=== PATIENT | female | born 1955 | race Caucasian/White ===

== ENCOUNTER → 2016-05-28 | Outpatient (CLI) | payer OTHER ==
--- NOTE | 2016-05-29 08:52 | MM ---
Reason for exam: screening (asymptomatic). Last mammogram was performed 1 year and 1 month ago. History: Patient is postmenopausal. Family history of breast cancer in mother at age 50. Took hormonal contraceptives for 6 years. Physical Findings: A clinical breast exam by your physician is recommended on an annual basis and results should be correlated with mammographic findings. MG Screening Mammo w CAD Bilateral CC and MLO view(s) were taken. Prior study comparison: May 02, 2015, bilateral MG 3d screening mammo w/cad. April 22, 2014, bilateral MG screening mammo w CAD. April 17, 2012, bilateral digital screening mammo w/CAD. There are scattered fibroglandular densities. Finding: There are typically benign punctate, diffuse/scattered and grouped calcifications in both breasts. There is a chronic nodularity in the left axilla. There is no discrete abnormality. ASSESSMENT: Benign, BI-RAD 2 RECOMMENDATION: Routine screening mammogram of both breasts in 1 year.
== END | disposition home or self-care (01) ==
LOC: RADMAMWWP 15:27
PROVIDERS: ATTEND Family Medicine
DX: Z12.31 Encounter for screening mammogram for malignant neoplasm of breast (principal)

== ENCOUNTER → 2017-05-31 | Outpatient (CLI) | payer OTHER ==
--- NOTE | 2017-05-31 21:57 | MR ---
EXAMINATION TYPE: MR knee RT wo con DATE OF EXAM: 05/31/2017 COMPARISON: NONE HISTORY: Right knee pain TECHNIQUE: Multiplanar, multisequence imaging of the right knee is performed without IV contrast. FINDINGS: MEDIAL MENISCUS: There is a complex tear involving the posterior horn and body of the medial meniscus there is also a tear involving the anterior horn of the medial meniscus. A bucket-handle tear is not identified. LATERAL MENISCUS: Anterior and posterior horns are intact without tear. CRUCIATE LIGAMENTS: Posterior cruciate ligament is intact. Anterior cruciate ligament appears intact. COLLATERAL LIGAMENTS: Lateral collateral ligament is intact. Medial collateral ligament is intact wit h a small amount of increased fluid suggestive of grade 1 MCL strain. EXTENSOR MECHANISM: Patellar and quadriceps tendons are intact. A trace amount of fluid in the suprap atellar bursa. POPLITEAL CYST: There is a 1.2 x 1 cm x 3.0 cm popliteal fossa cyst TRICOMPARTMENT SPACES: Severe narrowing of the medial compartment knee joint and patellofemoral joint with hypertrophic spurring. No erosive changes. There is localized grade IV chondromalacia involving the articular medial femur and tibia. There is grade IV chondromalacia and marked thinning of the medial and lateral patellar facet compati ble with chondromalacia. BONE MARROW SIGNAL: Marrow edema involving the medial tibial plateau likely is reactive secondary to chondromalacia and severe degenerative changes. Additionally, marrow signal alteration within the pat quincy also likely reactive secondary to post arthritic changes. IMPRESSION: 1. Severe osteoarthritis with grade IV chondromalacia involving the patellofemoral joint and medial c ompartment knee joint. No free fragment. 2. Complex tear involving the posterior horn of the medial meniscus. There is a simple linear tear in volving the anterior horn of the medial meniscus. 3. Grade 1 MCL strain. 4. There is a 1.2 x 1 x 3 cm popliteal fossa cyst.
== END | disposition home or self-care (01) ==
LOC: RADMRIMAIN 13:43
PROVIDERS: ATTEND Orthopaedic Surgery
DX: S83.411A Sprain of medial collateral ligament of right knee, initial encounter (principal); M17.11 Unilateral primary osteoarthritis, right knee; M22.41 Chondromalacia patellae, right knee; S83.231A Complex tear of medial meniscus, current injury, right knee, initial encounter; S83.241A Other tear of medial meniscus, current injury, right knee, initial encounter; M71.21 Synovial cyst of popliteal space [Baker], right knee

== ENCOUNTER 2017-07-03 08:17 | Day surgery (SDC) | payer OTHER ==
[2017-06-28 11:27] VITALS: BMI 39.3
--- NOTE | 2017-07-02 13:35 | HP ---
HISTORY AND PHYSICAL Surgery is scheduled for 07/03/2017. Naty Cross is a 61-year-old patient seen with right knee pain. Progressive in nature. Treatment options were discussed. She elected to proceed with arthroscopy. Consent was obtained. PAST MEDICAL HISTORY: Hyperlipidemia, hypertension, [id number] diabetes, asthma. PAST SURGICAL HISTORY: Abdominoplasty, tubal ligation, tonsillectomy. DAILY MEDICATIONS: 1. Atorvastatin. 2. Janumet. 3. Lipitor. 4. Loratadine. 5. Sertraline. ALLERGIES: None known. SOCIAL HISTORY: Patient denies tobacco use. PHYSICAL EXAMINATION: Physical evaluation of the right knee range of motion is 0 to 125 degrees. Tenderness along the medial joint line. Positive medial Elvis's. Crepitus medial patellofemoral compartments with range of motion. Ligaments stable. Hip rotation without pain. Distal neurovascular exam intact. Radiographs which were obtained of the right knee revealed moderate to severe medial, moderate to severe patellofemoral compartment osteoarthritis. An MRI of right knee revealed medial meniscal tear and osteoarthritis. IMPRESSION: Internal derangement right knee with medial meniscal tear. PLAN: Right knee arthroscopy with partial meniscectomy and debridement. MMODL / IJN: [id number] /
[~2017-07-03 08:17] MED LIST: DEXAMETHASONE SOD PHOSPHATE 10 MG/ML 1 ML VIAL IV ONE; LACTATED RINGERS 1,000 ML IV SCH; LIDOCAINE 1% 20 ML VIAL (10MG/ML) FOR IV START INTRADERMA PRN; MORPHINE SULFATE 4MG/4ML SYRG IV PRN; ONDANSETRON 4 MG/2 ML VIAL IVP ONE; SCOPOLAMINE 1.5MG/72HR PATCH TRANSDERM ONE; ceFAZolin IN SWFI 2 GM/20 ML SYRINGE IVP ONE
[2017-07-03 10:44] LABS: Glucose,Whole Blood 105 mg/dL (75-99)
[2017-07-03] MEDS ORDERED: LIDOCAINE 1% INJ 10MG/ML (20 ML MDV) ONE (10:54)
[2017-07-03] MEDS ORDERED: fentaNYL (PF) 50 MCG/ML 2 ML AMP ONE (10:54)
[2017-07-03] MEDS ORDERED: MIDAZOLAM 2 MG/2 ML VIAL ONE (10:54)
[2017-07-03] MEDS ORDERED: SUCCINYLCHOLINE CHLORIDE 100 MG/5 ML SYR IV ONE (10:54)
[2017-07-03] MEDS ORDERED: PROPOFOL 10 MG/ML 20 ML VIAL IV ONE (10:54)
[2017-07-03] MEDS ORDERED: BUPIVACAINE (PF) 0.25% 30 ML VIAL INTRAARTIC ONE ×2 (11:13→11:28)
[2017-07-03 11:51] VITALS: TEMP 97.8
--- NOTE | 2017-07-03 11:57 | P.OP ---
Date of Procedure: 07/03/17 Preoperative Diagnosis: Internal derangement right knee Postoperative Diagnosis: 1. Tear medial and lateral meniscus right knee 2. Grade 3 chondromalacia medial femoral condyle right knee 3. Grade 2/3 chondromalacia patella right knee 4. Reactive synovitis medial and suprapatellar compartments right knee Procedure(s) Performed: 1. Arthroscopic partial medial and lateral meniscectomy right knee 2. Arthroscopic chondroplasty medial femoral condyle right knee 3. Arthroscopic chondroplasty patella right knee 4. Arthroscopic partial synovectomy medial and suprapatellar compartments right knee Anesthesia: CECILIAA, local Surgeon: Дмитрий Mckeon Estimated Blood Loss (ml): 8 Pathology: none sent Condition: stable Disposition: PACU Indications for Procedure: 61-year-old patient seen with progressive right knee pain. After treatment options were discussed, she elected to proceed with arthroscopy. Operative Findings: see description of procedure Description of Procedure: Patient was taken to the operative suite. Patient underwent a general anesthetic by the department of anesthesia. Patient was given preoperative antibiotics. The right lower extremity was placed in a well-padded arthroscopic leg chanel. The right leg was prepped and draped in the normal sterile orthopedic fashion. A lateral parapatellar and suprapatellar incision was made. Trochars were inserted. Arthroscopy was initiated. Suprapatellar pouch revealed diffuse thick reactive synovitis. The patellofemoral joint appeared articulate congruently. There was grade 2/3 chondromalacia of the patella with some osteochondral tears present. The scope was guided into the medial gutter. No loose bodies or plica were identified. The scope was then guided into the medial compartment. A medial parapatellar incision was made. Trocar inserted followed by probe. There was a complex tear posterior horn medial meniscus which extended into the midbody. There were grade 3 chondromalacia changes of the medial femoral condyle some osteochondral tears present. Was grade 3 chondromalacia of the tibial plateau There was reactive synovitis anteriorly. I performed a partial medial meniscectomy down to stable tissue. I performed a chondroplasty of the medial femoral condyle down to stable tissue. I performed a partial synovectomy. The residual meniscus and osteochondral surface were stable. Scope and probe were then guided into the intercondylar notch. Cruciates were identified, probed and found to be stable. The scope and probe were then guided into lateral compartment. There was a radial tear mid body lateral meniscus. There were grade 1 chondromalacia changes of the lateral compartment. There was no loose bodies or reactive synovitis. I performed a partial lateral meniscectomy down to stable tissue. The residual meniscus was stable. The scope was in guided back into the suprapatellar compartment. I introduced a motorized shaver into the super patellar compartment. I debrided some piecemeal fragments of meniscus I encountered. I performed a chondroplasty of the patella down to stable tissue. I performed a partial synovectomy. Shaver was now removed. I took one more look on the entire knee, no residual debris. Instruments were now removed from the joint. The joint was infiltrated with .25% Marcaine. Steri-Strips were applied to the portal sites. Sterile dressings were applied. The patient was placed into a DAMIAN hose. No tourniquet was utilized. The patient was awakened, transferred to a bed and taken to recovery stable satisfactory condition.
[2017-07-03 12:05] VITALS: RESP 18
[2017-07-03] MEDS ORDERED: HYDROcodone/APAP 5-325MG 1 EACH TAB PO ONE (13:06)
[2017-07-03 13:44] VITALS: BP 120/75
[2017-07-03 13:46] VITALS: PULSE 83
== END 2017-07-03 14:10 | disposition home or self-care (01) ==
LOC: OR 08:17
PROVIDERS: ATTEND Orthopaedic Surgery
DX: S83.241A Other tear of medial meniscus, current injury, right knee, initial encounter (principal); S83.281A Other tear of lateral meniscus, current injury, right knee, initial encounter; X58.XXXA Exposure to other specified factors, initial encounter; M22.41 Chondromalacia patellae, right knee; M65.861 Other synovitis and tenosynovitis, right lower leg; E78.5 Hyperlipidemia, unspecified; I10 Essential (primary) hypertension; E11.9 Type 2 diabetes mellitus without complications; Z79.84 Long term (current) use of oral hypoglycemic drugs; J45.909 Unspecified asthma, uncomplicated; Z79.899 Other long term (current) drug therapy; Z79.82 Long term (current) use of aspirin
CPT/HCPCS: 29880; J2250; J1100; J2405; J2001; J3010; J0330; J2704; J0690

== ENCOUNTER → 2017-07-16 | Outpatient (CLI) | payer OTHER ==
--- NOTE | 2017-07-17 10:28 | MM ---
Reason for exam: screening (asymptomatic). Last mammogram was performed 1 year and 2 months ago. History: Patient is postmenopausal. Family history of breast cancer in mother at age 50. Took hormonal contraceptives for 6 years. Physical Findings: A clinical breast exam by your physician is recommended on an annual basis and results should be correlated with mammographic findings. MG Screening Mammo w CAD Bilateral CC and MLO view(s) were taken. Prior study comparison: May 28, 2016, bilateral MG screening mammo w CAD. May 02, 2015, bilateral MG 3d screening mammo w/cad. There are scattered fibroglandular densities. There is no discrete abnormality. No significant changes when compared with prior studies. ASSESSMENT: Negative, BI-RAD 1 RECOMMENDATION: Routine screening mammogram of both breasts in 1 year.
== END | disposition home or self-care (01) ==
LOC: RADMAMWWP 13:54
PROVIDERS: ATTEND Family Medicine
DX: Z12.31 Encounter for screening mammogram for malignant neoplasm of breast (principal)
CPT/HCPCS: 77067

== ENCOUNTER → 2018-05-07 | Outpatient (CLI) | payer OTHER ==
--- NOTE | 2018-05-07 12:28 | CONS ---
CONSULTATION DATE OF SERVICE: 05/07/2018 This 62-year-old lady has been evaluated in sleep center for her sleep problems including difficulties to initiate sleep and awakenings from sleep. HISTORY OF PRESENT ILLNESS/SLEEP-WAKE EVALUATION: The patient usually goes to bed about 9:00 to 10:00 and falls asleep around midnight and she gets up in the morning around 8 or 9 a.m. She sleeps by herself with snoring and awakenings from sleep about 2 times. She has TV set in bedroom, usually sleeps on the side position. No history of hypnagogic hallucinations, sleep paralysis or cataplexy. She has symptoms of restless legs and knee pain. In the morning, patient wakes up tired and has difficulties to pay attention, falling asleep during the day, worries about her sleep, has problem with memory, concentration, irritability. [place] Sleepiness Scale significantly increased to 16. Sometimes she takes naps during the day about 2 p.m. PAST MEDICAL HISTORY: Positive for hypertension, hyperlipidemia, diabetes in the past, depression, knee problems, back problems. PAST SURGICAL HISTORY: Tonsillectomy, tubal ligation. MEDICATIONS: Aspirin, atorvastatin, benazepril, cetirizine, hydroxyzine, ibuprofen, sertraline, tramadol, vitamin D. SOCIAL HISTORY: Negative for smoking or using alcohol. FAMILY HISTORY: Hypertension, heart problems, hyperlipidemia, arthritis, sinus problems, weakness, bronchitis, sleep apnea, snoring, cancer, insomnia, diabetes, anemia, depression, restless legs. REVIEW OF SYSTEMS: Difficulties to initiate sleep, awakenings from sleep, snoring. PHYSICAL EXAMINATION: During physical exam, lady without distress. VITAL SIGNS: BP 140/78, HR 86, RR 16, height 5 feet 1 inch, weight 229 pounds, body mass index 43.2, temperature 98.0, oxygen saturation at room air 98%. HEENT: PERRLA, EOMI. Oropharynx extremely low position of soft palate. Mallampati 4. Restriction of nasal breathing. NECK: Neck 15-1/2 inches in circumference. LUNGS: Clear to percussion and to auscultation. Good air exchange. No wheezing or rhonchi. HEART: Slight systolic murmurs on aorta. ABDOMEN: Obese. EXTREMITIES: No clubbing or cyanosis. THERMOSTAT REPAIRER: Awake, alert, and oriented X3. Cranial nerves 2 to 7 intact. There is no fasciculation or atrophy. noted. No focal deficits observed. IMPRESSION: 1. Snoring, extremely low position of soft palate and awakenings from sleep, restriction of nasal breathing, obstructive sleep apnea-hypopnea syndrome. 2. Obesity, body mass index 43.2. 3. Symptoms of restless legs, possible restless legs syndrome, rule out periodic limb movements. 4. History of diabetes mellitus in the past. 5. Hypertension. 6. Hyperlipidemia. 7. History of depression. 8. Knee arthritis. 9. Back problems. 10.Status post tonsillectomy. 11.Status post tubal ligation. PLAN: 1. Polysomnography for evaluation of patient's breathing during sleep. 2. CPAP/BiPAP titration if sleep study confirms obstructive sleep apnea-hypopnea syndrome. 3. Preferable position during sleep on the side. 4. No driving if patient feels any sleepiness. 5. I will see patient for follow up visit to explain results of testing and following plan. Thank you very much for referring this patient for consultation. Sincerely, Vince Gonzales MD, PhD, FAASM Diplomat of [employer] Dry Cleaner Presser of [facility] [place] MMODL / IJN: [id number] /
== END ==
LOC: SLEEP 11:13
PROVIDERS: ATTEND Internal Medicine
DX: G47.33 Obstructive sleep apnea (adult) (pediatric) (principal); E66.9 Obesity, unspecified; G25.81 Restless legs syndrome; E11.9 Type 2 diabetes mellitus without complications; I10 Essential (primary) hypertension; E78.5 Hyperlipidemia, unspecified; F32.9 Major depressive disorder, single episode, unspecified; M17.9 Osteoarthritis of knee, unspecified; M54.89 Other dorsalgia; Z90.89 Acquired absence of other organs; Z98.51 Tubal ligation status; Z99.89 Dependence on other enabling machines and devices; Z68.41 Body mass index [BMI] 40.0-44.9, adult; Z79.899 Other long term (current) drug therapy; Z79.82 Long term (current) use of aspirin
CPT/HCPCS: 99211

== ENCOUNTER → 2018-06-19 | Outpatient (CLI) | payer OTHER ==
--- NOTE | 2018-06-19 13:11 | SFUN ---
SLEEP CENTER FOLLOW UP NOTE DATE OF SERVICE: 06/19/2018 A 62-year-old lady who has been followed in sleep center to discuss results of sleep study and following plan. I discussed results of sleep study with patient in details. No significant respiratory abnormalities have been documented during the sleep test. Total apnea-hypopnea index only 0.5 with the lowest oxygen level 91.6%, which is absolutely normal. Sleep efficiency was 81.7%, which is slightly below border. Latency sleep onset was normal 19.3 minutes. The patient had 2 amount of delta sleep 23.3%, amount of REM sleep slightly decreased to 14.5%. Significant amount of periodic limb movements have been documented 86.7 times per hour with 6.2 microarousals per hour. Sometimes patient feels sleepy during the day. May take naps usually this short cat naps. She is not sure if she is feeling better after the naps. [place] Sleepiness Scale increased to 15. MEDICATIONS: Atorvastatin, benazepril, cetirizine, hydroxyzine, ibuprofen, sertraline, tramadol, vitamin D, ropinirole. PHYSICAL EXAMINATION: During physical exam, patient in no distress. VITAL SIGNS: BP 144/67, HR 82, RR 16, height 5 feet 1 inch, weight 229, body mass index 43.2, oxygen saturation at room air 97%, temperature 97.9. HEENT: PERRLA, EOMI. Moderately low position of soft palate. Mallampati 3. NECK: Supple, no JVD. Thyroid is not palpable. LUNGS: Clear to percussion and to auscultation. Good air exchange. No wheezing or rhonchi. HEART: S1, S2 regular. No murmurs, gallops, or rubs. ABDOMEN: Obese. EXTREMITIES: No clubbing or cyanosis. SHELL CORE AND MOLDING SUPERVISOR: Awake, alert, and oriented X3. Cranial nerves 2 to 7 intact. There is no fasciculation or atrophy. noted. No focal deficits observed. IMPRESSION: 1. No significant respiratory abnormalities have been documented during the sleep study. Normal oxygenation during the sleep. 2. Severe periodic limb movements, 86.7 per hour with 6.2 microarousals per hour have been documented. 3. Patient occasionally takes naps and feels sleepy. [place] Sleepiness Scale increased to 15. 4. Obesity. 5. History of diabetes mellitus. 6. Hypertension. 7. Hyperlipidemia. 8. History of depression. 9. Knee arthritis. 10.Back problems. 11.Status post tonsillectomy. 12.Status post tubal ligation. PLAN: 1. The patient will continue treatment with dopamine agonist. She did not take medication at the day of the test. 2. Sleep hygiene with regular time in bed for 8 hours. 3. Preferable position during the sleep on the side. 4. Losing weight. 5. No driving if feeling any sleepiness. 6. Please check iron profile including ferritin level. Low level of iron may increase risks for restless legs syndrome and periodic limb movements. 7. If patient will continue to have symptoms of significant excessive daytime sleepiness we may proceed with polysomnogram following with multiple sleep latency test for objective evaluation of symptoms of sleepiness. Thank you very much for allowing me to participate in management of your patient. Sincerely, Vince Gonzales MD, PhD, FAASM Diplomat of [employer] Advertising Production Manager of [facility] [place] MMODL / LEONIDN: [id number] /
== END | disposition home or self-care (01) ==
LOC: SLEEP 11:13
PROVIDERS: ATTEND Internal Medicine
DX: G47.61 Periodic limb movement disorder (principal); E66.9 Obesity, unspecified; E11.9 Type 2 diabetes mellitus without complications; I10 Essential (primary) hypertension; E78.5 Hyperlipidemia, unspecified; M17.10 Unilateral primary osteoarthritis, unspecified knee; M53.9 Dorsopathy, unspecified; Z68.41 Body mass index [BMI] 40.0-44.9, adult; Z90.09 Acquired absence of other part of head and neck; Z98.51 Tubal ligation status; Z79.899 Other long term (current) drug therapy

== ENCOUNTER 2018-07-11 20:58 | Observation (INO) | payer OTHER ==
[2018-07-11] MEDS ORDERED: IBUPROFEN 800 MG TAB PO STA (21:10)
--- NOTE | 2018-07-11 22:04 | XR ---
EXAMINATION TYPE: XR chest 2V DATE OF EXAM: 07/11/2018 COMPARISON: NONE HISTORY: Sore throat TECHNIQUE: Frontal and lateral views of the chest are obtained. FINDINGS: Heart and mediastinum are normal. Lungs are clear. Diaphragm is normal. Bony thorax appear s normal. IMPRESSION: Normal chest.
[2018-07-11] MEDS ORDERED: SODIUM CHLORIDE 0.9% 500 ML 500 ML IV ONE ×2 (22:06→23:46)
[2018-07-11] MEDS ORDERED: ACETAMINOPHEN TAB 325 MG TAB PO STA (22:08)
[2018-07-11 22:42] LABS: HCT 20.9 % (34.0-46.0); Hypochromasia Slight; MCH 28.4 pg (25.0-35.0); MCHC 31.8 g/dL (31.0-37.0); MCV 89.5 fL (80.0-100.0); Mean Platelet Volume 7.4; Platelet Count 439 k/uL (150-450); RBC 2.34 m/uL (3.80-5.40); RDW 13.8 % (11.5-15.5); WBC 16.3 k/uL (3.8-10.6)
[2018-07-11 22:52] LABS: Albumin 3.7 g/dL (3.5-5.0); Calcium 8.6 mg/dL (8.4-10.2); Potassium 4.1 mmol/L (3.5-5.1); Total Bilirubin 0.4 mg/dL (0.2-1.3); Total Protein 6.9 g/dL (6.3-8.2)
[2018-07-11 22:56] LABS: HGB 6.7 gm/dL (11.4-16.0)
[2018-07-11 23:30] LABS: Lymphocytes # (M) 2.93 k/uL (1.0-4.8); Monocytes # (M) 1.79 k/uL (0-1.0); Myelocytes # (M) 0.33 k/uL (0); Myelocytes % 2 %; Neutrophils # (M) 11.41 k/uL (1.3-7.7); Neutrophils % (M) 70 %; Nucleated Red Blood Cells 0 /100 WBC (0-0); Total Cells Counted 200
[2018-07-11 23:46] LABS: Appearance,Urine Cloudy (Clear); Bacteria,Urine Many /hpf; Bilirubin,Urine Negative (Negative); Blood,Urine Moderate (Negative); Color,Urine Yellow; Glucose,Urine (UA) Negative (Negative); Hyaline Casts,Urine 1 /lpf (0-2); Ketones,Urine Negative (Negative); Leukocyte Esterase,Urine Moderate (Negative); Mucus,Urine Occasional /hpf; Nitrite,Urine Positive (Negative); PH, Urine 5.5 (5.0-8.0); Protein,Urine 1+ (Negative); RBC,Urine 7 /hpf (0-5); Specific Gravity,Urine 1.017 (1.001-1.035); Squamous Epithelial Cell,Urine 1 /hpf (0-4); Urobilinogen,Urine <2.0 mg/dL (<2.0); WBC,Urine 38 /hpf (0-5)
--- NOTE | 2018-07-12 00:23 | ED ---
General Adult HPI - General Chief complaint: Upper Respiratory Infection Stated complaint: Fever/Sore Throat Time Seen by Provider: 07/11/18 21:10 Source: patient Mode of arrival: ambulatory Limitations: no limitations - History of Present Illness Initial comments: 62-year-old femaleWith past medical history of diabetes hypertension and hyperlipidemia presenting today for chief complaint of cough and sore throat. Patient states the past 2-3 days she has had cough and sore throat, she states she has also had a fever. She states she has been taking Tylenol for the fever. Patient states his symptoms persisted today she presented for evaluation. David hurst also admitted to body aches. Patient denies diarrhea, constipation, abdominal pain, melena, hematochezia, shortness of breath, chest pain, nausea. Patient was concerned that she had contracted influenza although she states she did receive her vaccinations. Patient denies any significant sputum production. Upon arrival patient's heart rate elevated, patient is febrile. Patient does not appear toxic. Many review of systems negative. - Related Data Home Medications Medication Instructions Recorded Confirmed Aspirin EC [Ecotrin] 81 mg PO DAILY 06/04/15 07/11/18 Atorvastatin [Lipitor] 80 mg PO HS 06/04/15 07/11/18 Benazepril HCl [Lotensin] 20 mg PO HS 06/04/15 07/11/18 Sertraline [Zoloft] 100 mg PO DAILY 06/04/15 07/11/18 traMADol HCl [Ultram] 50 mg PO HS PRN 06/04/15 07/11/18 Cetirizine HCl [Zyrtec] 10 mg PO DAILY 06/28/17 07/11/18 hydrOXYzine HCL [Atarax] 10 mg PO HS PRN 06/28/17 07/11/18 Artificial Tears-Hypromellose 1 drops BOTH EYES DAILY PRN 07/11/18 07/11/18 [Artificial Tear Drops] Ergocalciferol [Vitamin D2] 50,000 unit PO Q7D 07/11/18 07/11/18 Hydrocortisone Cream 1 applic TOPICAL QID 07/11/18 07/11/18 [Hydrocortisone 2.5% Cream] Ibuprofen [Motrin] 800 mg PO TID PRN 07/11/18 07/11/18 Nystatin 100,000Unit/gm Cream 1 applic TOPICAL BID 07/11/18 07/11/18 [Mycostatin Cream] rOPINIRole HCL 0.5 mg PO HS 07/11/18 07/11/18 Allergies Allergy/AdvReac Type Severity Reaction Status Date / Time No Known Allergies Allergy Verified 07/11/18 21:22 Review of Systems ROS Statement: Those systems with pertinent positive or pertinent negative responses have been documented in the HPI. ROS Other: All systems not noted in ROS Statement are negative. Past Medical History Past Medical History: Diabetes Mellitus, Hyperlipidemia, Hypertension, Osteoarthritis (OA), Renal Disease Additional Past Medical History / Comment(s): TYPE 2 DIABETES CONTROLLED WITH DIET & EXERCISE., BACK PAIN - SEES CHIROPRACTER., STATES "SLIGHT KIDNEY DISEAS E"., PAIN RIGHT KNEE WITH ACTIVITY. History of Any Multi-Drug Resistant Organisms: None Reported Past Surgical History: Orthopedic Surgery, Tonsillectomy, Tubal Ligation Additional Past Surgical History / Comment(s): bunionectomy left foot and a plate Past Anesthesia/Blood Transfusion Reactions: No Reported Reaction Past Psychological History: Anxiety, Depression Smoking Status: Never smoker Past Alcohol Use History: None Reported Past Drug Use History: None Reported - Past Family History Mother Family Medical History: Cancer Brother(s) Family Medical History: Cancer Son(s) Family Medical History: Cancer General Exam - General Exam Comments Initial Comments: General: The patient is awake and alert, in no distress, and does not appear acutely ill. Eye: +3 mm pupils are equal, round and reactive to light, extra-ocular movements are intact. No nystagmus. There is normal conjunctiva bilaterally. No signs of icterus. No photophobia Ears, nose, mouth and throat: There are moist mucous membranes and no oral lesions. Oropharynx was not erythematous there is no tonsillar enlargement exudates or lesions. Uvula midline. Tympanic membranes are not erythematous or is no effusions bulging or retraction. No tenderness to palpation of the mastoid. No anterior cervical lymphadenopathy. Rhinorrhea, clear and bilateral nares. No tripoding, no drooling. Neck: The neck is supple, there is no tenderness or JVD. No nuchal rigidity negative Brudzinski and Kernig Cardiovascular: There is a regular rate and rhythm. No murmur, rub or gallop is appreciated. Respiratory: Lungs are clear to auscultation, respirations are non-labored, breath sounds are equal. No wheezes, stridor, rales, or rhonchi. No retractions or abdominal breathing. Gastrointestinal: Soft, non-distended, non-tender abdomen without masses or organomegaly noted. There is no rebound or guarding present. Bowel sounds are unremarkable. Musculoskeletal: Normal ROM, no tenderness. Strength 5/5. Sensation intact. Radial pulses equal bilaterally 2+. Neurological: A&O x 3. CN II-XII intact, There are no obvious motor or sensory deficits. Coordination appears grossly intact. Speech appears normal, no muffling. Skin: Skin is warm and dry and no rashes or lesions are noted. No extremity edema Psychiatric: Cooperative Limitations: no limitations Course Vital Signs 07/11/18 07/11/18 07/12/18 20:59 22:39 00:15 Temperature 102.4 F H 100.1 F H 98.3 F Pulse Rate 120 H 106 H 93 Respiratory 24 20 16 Rate Blood Pressure 147/70 126/82 128/74 O2 Sat by Pulse 96 96 96 Oximetry Medical Decision Making - Medical Decision Making Well-appearing 62-year-old female presenting for upper respiratory symptoms including cough and sore throat. Exam unremarkable. Patient is febrile with elevated heart rate. Upon arrival patient was given ibuprofen and Tylenol, decrease in fever with decrease in heart rate noted. Laboratory studies revealed a low hemoglobin, leukocytosis. Cr elevated, pt states she has known Stage 2 kidney disease. Chest X-Ray Revealed No acute cardiopulmonary process. No Infiltrates concerning for Pneumonia. Lungs Are Clear to Auscultation. Patient states she does have a distant history of anemia of a few years prior denies any iron supplements. She denies a previous transfusions. At this time patient will receive contusion as hemoglobin less than 7. Patient is agreeable transfusion at this time. Patient has urinary tract infection, treated with ceftriaxone. At this time I feel patient's fever is most likely due to upper respiratory symptoms such as a viral illness a posterior urinary tract infection. Patient does not appear toxic or septic at this time. Remains hemodynamically stable within the emergency department. However given HgB with need for transfusion pt will be admitted with hematology consultation, IV antibiotics for UTI, r/o sepsis. Patient is agreeable to admission. After discussing case with attending provider Dr. Morfin he is agreeable with admission. He spoke with admitting provider Dr. Dumont. - Lab Data Result diagrams: 07/11/18 21:24 07/11/18 21:24 Lab Results 07/11/18 07/11/18 07/11/18 Range/Units 21:23 21:24 21:24 WBC 16.3 H (3.8-10.6) k/uL RBC 2.34 L (3.80-5.40) m/uL Hgb 6.7 L* (11.4-16.0) gm/dL Hct 20.9 L (34.0-46.0) % MCV 89.5 (80.0-100.0) fL MCH 28.4 (25.0-35.0) pg MCHC 31.8 (31.0-37.0) g/dL RDW 13.8 (11.5-15.5) % Plt Count 439 (150-450) k/uL Neutrophils % (Manual) 70 % Lymphocytes % (Manual) 18 % Monocytes % (Manual) 11 % Myelocytes % 2 % Neutrophils # (Manual) 11.41 H (1.3-7.7) k/uL Lymphocytes # (Manual) 2.93 (1.0-4.8) k/uL Monocytes # (Manual) 1.79 H (0-1.0) k/uL Myelocytes # (Manual) 0.33 H (0) k/uL Nucleated RBCs 0 (0-0) /100 WBC Manual Slide Review Performed Hypochromasia Slight Sodium 141 (137-145) mmol/L Potassium 4.1 (3.5-5.1) mmol/L Chloride 111 H (98-107) mmol/L Carbon Dioxide 20 L (22-30) mmol/L Anion Gap 10 mmol/L BUN 29 H (7-17) mg/dL Creatinine 1.39 H (0.52-1.04) mg/dL Est GFR (CKD-EPI)AfAm 48 (>60 ml/min/1.73 sqM) Est GFR (CKD-EPI)NonAf 41 (>60 ml/min/1.73 sqM) Glucose 186 H (74-99) mg/dL Plasma Lactic Acid Oziel (0.7-2.0) mmol/L Calcium 8.6 (8.4-10.2) mg/dL Total Bilirubin 0.4 (0.2-1.3) mg/dL AST 27 (14-36) U/L ALT 34 (9-52) U/L Alkaline Phosphatase 119 (38-126) U/L Total Protein 6.9 (6.3-8.2) g/dL Albumin 3.7 (3.5-5.0) g/dL Urine Color Urine Appearance (Clear) Urine pH (5.0-8.0) Ur Specific [place] (1.001-1.035) Urine Protein (Negative) Urine Glucose (UA) (Negative) Urine Ketones (Negative) Urine Blood (Negative) Urine Nitrite (Negative) Urine Bilirubin (Negative) Urine Urobilinogen (<2.0) mg/dL Ur Leukocyte Esterase (Negative) Urine RBC (0-5) /hpf Urine WBC (0-5) /hpf Ur Squamous Epith Cells (0-4) /hpf Urine Bacteria (None) /hpf Hyaline Casts (0-2) /lpf Urine Mucus (None) /hpf Stool Occult Blood (Negative) Influenza Type A RNA Not Detected (Not Detectd) Influenza Type B (PCR) Not Detected (Not Detectd) 07/11/18 07/11/18 07/12/18 Range/Units 21:24 23:00 01:06 WBC (3.8-10.6) k/uL RBC (3.80-5.40) m/uL Hgb (11.4-16.0) gm/dL Hct (34.0-46.0) % MCV (80.0-100.0) fL MCH (25.0-35.0) pg MCHC (31.0-37.0) g/dL RDW (11.5-15.5) % Plt Count (150-450) k/uL Neutrophils % (Manual) % Lymphocytes % (Manual) % Monocytes % (Manual) % Myelocytes % % Neutrophils # (Manual) (1.3-7.7) k/uL Lymphocytes # (Manual) (1.0-4.8) k/uL Monocytes # (Manual) (0-1.0) k/uL Myelocytes # (Manual) (0) k/uL Nucleated RBCs (0-0) /100 WBC Manual Slide Review Hypochromasia Sodium (137-145) mmol/L Potassium (3.5-5.1) mmol/L Chloride (98-107) mmol/L Carbon Dioxide (22-30) mmol/L Anion Gap mmol/L BUN (7-17) mg/dL Creatinine (0.52-1.04) mg/dL Est GFR (CKD-EPI)AfAm (>60 ml/min/1.73 sqM) Est GFR (CKD-EPI)NonAf (>60 ml/min/1.73 sqM) Glucose (74-99) mg/dL Plasma Lactic Acid Oziel 1.4 (0.7-2.0) mmol/L Calcium (8.4-10.2) mg/dL Total Bilirubin (0.2-1.3) mg/dL AST (14-36) U/L ALT (9-52) U/L Alkaline Phosphatase (38-126) U/L Total Protein (6.3-8.2) g/dL Albumin (3.5-5.0) g/dL Urine Color Yellow Urine Appearance Cloudy H (Clear) Urine pH 5.5 (5.0-8.0) Ur Specific [place] 1.017 (1.001-1.035) Urine Protein 1+ H (Negative) Urine Glucose (UA) Negative (Negative) Urine Ketones Negative (Negative) Urine Blood Moderate H (Negative) Urine Nitrite Positive H (Negative) Urine Bilirubin Negative (Negative) Urine Urobilinogen <2.0 (<2.0) mg/dL Ur Leukocyte Esterase Moderate H (Negative) Urine RBC 7 H (0-5) /hpf Urine WBC 38 H (0-5) /hpf Ur Squamous Epith Cells 1 (0-4) /hpf Urine Bacteria Many H (None) /hpf Hyaline Casts 1 (0-2) /lpf Urine Mucus Occasional H (None) /hpf Stool Occult Blood Negative (Negative) Influenza Type A RNA (Not Detectd) Influenza Type B (PCR) (Not Detectd) Disposition Clinical Impression: UTI (urinary tract infection), Fever, Anemia, Leukocytosis Disposition: ADMITTED IP TO THIS HOSP Condition: Stable Is patient prescribed a controlled substance at d/c from ED?: No Referrals: Norberto Dumont MD [Primary Care Provider] - 1-2 days Time of Disposition: 00:47 Decision to Admit Reason: Admit from EC Decision Date: 07/12/18 Decision Time: 00:47
[2018-07-12] MEDS ORDERED: NALOXONE 0.4 MG/ML 1 ML VIAL IV PRN (00:43)
[2018-07-12] MEDS: SODIUM CHLORIDE 0.9% 1,000 ML IV SCH ×2 (04:11→17:05)
[2018-07-12 04:43] VITALS: BMI 41.1
[2018-07-12 07:18] LABS: Glucose,Whole Blood 134 mg/dL (75-99)
[2018-07-12] MEDS ORDERED: hydrOXYzine HCL 10 MG TAB PO PRN (09:19)
[2018-07-12 10:28] LABS: Albumin 3.2 g/dL (3.5-5.0); Calcium 8.1 mg/dL (8.4-10.2); Total Bilirubin 0.5 mg/dL (0.2-1.3); Total Protein 6.2 g/dL (6.3-8.2)
[2018-07-12 10:29] LABS: Basophils # (A) 0.1 k/uL (0-0.2); Basophils % (A) 0 %; Eosinophils # (A) 0.1 k/uL (0-0.7); Eosinophils % (A) 1 %; HCT 30.4 % (34.0-46.0); Hypochromasia Slight; Lymphocytes # (A) 1.2 k/uL (1.0-4.8); Lymphocytes % (A) 10 %; MCH 29.5 pg (25.0-35.0); MCHC 31.8 g/dL (31.0-37.0); MCV 92.5 fL (80.0-100.0); Mean Platelet Volume 7.3; Monocytes % (A) 9 %; Neutrophils # (A) 8.9 k/uL (1.3-7.7); Neutrophils % (A) 76 %; Platelet Count 309 k/uL (150-450); RBC 3.28 m/uL (3.80-5.40); RDW 13.9 % (11.5-15.5); WBC 11.6 k/uL (3.8-10.6)
[2018-07-12 10:33] LABS: HGB 9.7 gm/dL (11.4-16.0)
[2018-07-12 12:41] LABS: Glucose,Whole Blood 154 mg/dL (75-99)
[2018-07-12] MEDS: INSULIN ASPART (NovoLOG) 100 UNIT/ML VIAL SQ SCH ×3 (12:47→21:03)
[2018-07-12] MEDS: TRIAMCINOLONE 0.1% CREAM 80 GM TUBE TOPICAL SCH ×3 (12:48→21:03)
[2018-07-12] MEDS: SERTRALINE 100 MG TAB PO SCH (12:48)
--- NOTE | 2018-07-12 13:52 | HP ---
HISTORY AND PHYSICAL CHIEF COMPLAINT: Shortness of breath and anemia. HISTORY OF PRESENT ILLNESS: This is another [facility] admission for this 62-year-old female with insulin- dependent diabetes mellitus. She came to emergency room with shortness of breath and was found to have a hemoglobin of around 6. She has no history of bleeding. She has had no abdominal pain, nausea, vomiting, hematemesis, hematuria, melena, hematochezia, etc. At her annual physical assessment last fall in September, her hemoglobin was 11.9. REVIEW OF SYSTEMS: She has had no syncope, headaches, neurologic problems, cough, hemoptysis, chest pain, shortness of breath, heart disease, abdominal pain, indigestion, melena, hematochezia, etc. She has had no hematuria, renal disease, renal failure, etc. She is diabetic. The past medical history, family history and personal and social histories are all otherwise unremarkable and noncontributory. She is not allergic to any medication. She is on vitamin D3, benazepril 20, atorvastatin 80, sertraline 100 mg, Ropinirole 0.25, tramadol 50 mg and acetamide 10 mg, aspirin. The remainder of her history is unremarkable or noncontributory. She does not smoke or drink. PHYSICAL EXAMINATION: Blood pressure 130/70 with a pulse of 100, respirations of 16 and she is afebrile. In general, she appeared to be overweight and slightly pale. Skin color is normal, skin was warm, dry. She had numerous neurotic excoriations on her arms, which she has had for years. Head, ears, eyes, nose, mouth, and throat are normal. There are no neck masses and there is no thyromegaly. The chest is clear to auscultation and percussion. Cardiac exam demonstrates normal sinus rhythm and no murmurs or extra sounds. The abdomen is soft and nontender without any visceromegaly or masses. Bowel sounds are present. Extremities are normal. Neurologically, she is intact. She is admitted to the hospital with diagnoses of: 1. Unexplained anemia. 2. Type 2 NIDDM. 3. Urinary tract infection. 4. Neurotic excoriations. PLAN: 1. Bed rest. 2. IV fluids. 3. Transfuse 1 unit of packed cells. 4. Investigate source of anemia with Hematology consult. MMODL / IJN: [id number] /
[2018-07-12 17:39] LABS: Glucose,Whole Blood 153 mg/dL (75-99)
[2018-07-12 19:28] LABS: Hemoglobin A1C 6.7 % (4.0-6.0)
[2018-07-12 20:38] LABS: Glucose,Whole Blood 140 mg/dL (75-99)
[2018-07-12] MEDS: ATORVASTATIN 80 MG TAB PO SCH (21:02)
[2018-07-12] MEDS: LISINOPRIL 20 MG TAB PO SCH (21:02)
--- NOTE | 2018-07-12 22:40 | P.CONS ---
History of Present Illness - Reason for Consult Consult date: 07/12/18 Anemia Requesting physician: Norberto Dumont - Chief Complaint Sore throat, fever - History of Present Illness Ms. Arriola is a very pleasant 62 yo female with multiple comorbidities as listed in PMH who is here for cough, sore throat, and fever, found to have anem ia with Hgb 6.7, negative FOBT and flu. No recent antibiotics or new medications. No known history of anemia per pt. No prior CBC in her chart however. CBC upon presentation with WBC 16.7, Hgb 6.7, plt 439, MCV 89.5 She did receive 1 unit pRBC with improvement of Hgb. WBC and plt also improved upon repeat CBC. Cr upon presentation 1.3. FOBT negative and no obvious source of blood loss. No smoking, alcohol, or drug use. No known family history of blood disorders. Review of Systems All systems: negative Constitutional: Reports as per HPI Past Medical History Past Medical History: Diabetes Mellitus, Hyperlipidemia, Hypertension, Osteoarthritis (OA), Renal Disease Additional Past Medical History / Comment(s): TYPE 2 DIABETES CONTROLLED WITH DIET & EXERCISE., BACK PAIN - SEES CHIROPRACTER., STATES "SLIGHT KIDNEY DISEASE"., PAIN RIGHT KNEE WITH ACTIVITY. History of Any Multi-Drug Resistant Organisms: None Reported Past Surgical History: Orthopedic Surgery, Tonsillectomy, Tubal Ligation Additional Past Surgical History / Comment(s): bunionectomy left foot and a plate Past Anesthesia/Blood Transfusion Reactions: No Reported Reaction Past Psychological History: Anxiety, Depression Smoking Status: Never smoker Past Alcohol Use History: None Reported Past Drug Use History: None Reported - Past Family History Mother Family Medical History: Cancer Brother(s) Family Medical History: Cancer Son(s) Family Medical History: Cancer Medications and Allergies Home Medications Medication Instructions Recorded Confirmed Type Aspirin EC [Ecotrin] 81 mg PO DAILY 06/04/15 07/11/18 History Atorvastatin [Lipitor] 80 mg PO HS 06/04/15 07/11/18 History Benazepril HCl [Lotensin] 20 mg PO HS 06/04/15 07/11/18 History Sertraline [Zoloft] 100 mg PO DAILY 06/04/15 07/11/18 History traMADol HCl [Ultram] 50 mg PO HS PRN 06/04/15 07/11/18 History Cetirizine HCl [Zyrtec] 10 mg PO DAILY 06/28/17 07/11/18 History hydrOXYzine HCL [Atarax] 10 mg PO HS PRN 06/28/17 07/11/18 History Artificial Tears-Hypromellose 1 drops BOTH EYES DAILY PRN 07/11/18 07/11/18 History [Artificial Tear Drops] Ergocalciferol [Vitamin D2] 50,000 unit PO Q7D 07/11/18 07/11/18 History Hydrocortisone Cream 1 applic TOPICAL QID 07/11/18 07/11/18 History [Hydrocortisone 2.5% Cream] Ibuprofen [Motrin] 800 mg PO TID PRN 07/11/18 07/11/18 History Nystatin 100,000Unit/gm Cream 1 applic TOPICAL BID 07/11/18 07/11/18 History [Mycostatin Cream] rOPINIRole HCL 0.5 mg PO HS 07/11/18 07/11/18 History Allergies Allergy/AdvReac Type Severity Reaction Status Date / Time No Known Allergies Allergy Verified 07/11/18 21:22 Physical Exam Vitals: Vital Signs Temp Pulse Pulse Resp BP BP Pulse Ox 07/12/18 11:24 109/54 07/12/18 08:50 84 16 07/12/18 05:34 98.1 F 84 16 87/58 97 07/12/18 05:32 98.9 F 77 20 116/69 07/12/18 03:47 98.2 F 76 18 119/59 07/12/18 03:17 98.4 F 81 20 124/58 07/12/18 03:07 98.3 F 79 20 111/56 96 07/12/18 01:30 96 18 123/60 95 07/12/18 00:15 98.3 F 93 16 128/74 96 07/11/18 22:39 100.1 F H 106 H 20 126/82 96 07/11/18 20:59 102.4 F H 120 H 24 147/70 96 Intake and Output 07/11/18 07/12/18 07/12/18 22:59 06:59 14:59 Intake Total 1600 Balance 1600 Intake: Intake, IV Titration 150 Amount Sodium Chloride 0.9% 1, 150 000 ml @ 75 mls/hr IV . [id number] TAMIR Rx#:[id number] Oral 830 Blood Product 620 Rc As-1 Unit 310 [id number] Other: # Voids 1 Weight 102 kg General: In no acute distress. HEENT: Conjunctival pallor. No scleral icterus. Mucosa moist. Neck: Neck supple. Lymph: No cervical/supraclavicular LAD. Lungs: Normal respirations. Heart: Regular rate. No LE edema. Abdomen: Soft, nontender, nondistended. MSK: 4/4 strength in all 4 extremities. Neuro: Alert and oriented 3. No obvious gross neurologic deficits. Skin: No jaundice. Some lesions on her arms that she says are chronic. Psych: Appropriate affect. Results CBC & Chem 7: 07/12/18 09:50 07/12/18 09:50 Labs: Abnormal Lab Results - Last 24 Hours (Table) 07/11/18 07/11/18 07/11/18 Range/Units 21:24 21:24 23:00 WBC 16.3 H (3.8-10.6) k/uL RBC 2.34 L (3.80-5.40) m/uL Hgb 6.7 L* (11.4-16.0) gm/dL Hct 20.9 L (34.0-46.0) % Neutrophils # (1.3-7.7) k/uL Neutrophils # (Manual) 11.41 H (1.3-7.7) k/uL Monocytes # (Manual) 1.79 H (0-1.0) k/uL Myelocytes # (Manual) 0.33 H (0) k/uL Chloride 111 H (98-107) mmol/L Carbon Dioxide 20 L (22-30) mmol/L BUN 29 H (7-17) mg/dL Creatinine 1.39 H (0.52-1.04) mg/dL Glucose 186 H (74-99) mg/dL POC Glucose (mg/dL) (75-99) mg/dL Calcium (8.4-10.2) mg/dL Total Protein (6.3-8.2) g/dL Albumin (3.5-5.0) g/dL Urine Appearance Cloudy H (Clear) Urine Protein 1+ H (Negative) Urine Blood Moderate H (Negative) Urine Nitrite Positive H (Negative) Ur Leukocyte Esterase Moderate H (Negative) Urine RBC 7 H (0-5) /hpf Urine WBC 38 H (0-5) /hpf Urine Bacteria Many H (None) /hpf Urine Mucus Occasional H (None) /hpf Crossmatch 07/12/18 07/12/18 07/12/18 Range/Units 00:39 07:16 09:50 WBC 11.6 H (3.8-10.6) k/uL RBC 3.28 L (3.80-5.40) m/uL Hgb 9.7 L D (11.4-16.0) gm/dL Hct 30.4 L (34.0-46.0) % Neutrophils # 8.9 H (1.3-7.7) k/uL Neutrophils # (Manual) (1.3-7.7) k/uL Monocytes # (Manual) (0-1.0) k/uL Myelocytes # (Manual) (0) k/uL Chloride (98-107) mmol/L Carbon Dioxide (22-30) mmol/L BUN (7-17) mg/dL Creatinine (0.52-1.04) mg/dL Glucose (74-99) mg/dL POC Glucose (mg/dL) 134 H (75-99) mg/dL Calcium (8.4-10.2) mg/dL Total Protein (6.3-8.2) g/dL Albumin (3.5-5.0) g/dL Urine Appearance (Clear) Urine Protein (Negative) Urine Blood (Negative) Urine Nitrite (Negative) Ur Leukocyte Esterase (Negative) Urine RBC (0-5) /hpf Urine WBC (0-5) /hpf Urine Bacteria (None) /hpf Urine Mucus (None) /hpf Crossmatch See Detail 07/12/18 07/12/18 Range/Units 09:50 12:39 WBC (3.8-10.6) k/uL RBC (3.80-5.40) m/uL Hgb (11.4-16.0) gm/dL Hct (34.0-46.0) % Neutrophils # (1.3-7.7) k/uL Neutrophils # (Manual) (1.3-7.7) k/uL Monocytes # (Manual) (0-1.0) k/uL Myelocytes # (Manual) (0) k/uL Chloride 113 H (98-107) mmol/L Carbon Dioxide 20 L (22-30) mmol/L BUN 27 H (7-17) mg/dL Creatinine 1.11 H (0.52-1.04) mg/dL Glucose 211 H (74-99) mg/dL POC Glucose (mg/dL) 154 H (75-99) mg/dL Calcium 8.1 L (8.4-10.2) mg/dL Total Protein 6.2 L (6.3-8.2) g/dL Albumin 3.2 L (3.5-5.0) g/dL Urine Appearance (Clear) Urine Protein (Negative) Urine Blood (Negative) Urine Nitrite (Negative) Ur Leukocyte Esterase (Negative) Urine RBC (0-5) /hpf Urine WBC (0-5) /hpf Urine Bacteria (None) /hpf Urine Mucus (None) /hpf Crossmatch On presentation, WBC 16.7 (incr ANC, AMC, myelocytes), Hgb 6.7, plt 439, MCV 89.5, Cr 1.39, otherwise cmp negative; transfused 1 unit pRBC. Chest x-ray: report reviewed Assessment and Plan Assessment: 1. Anemia 2. Leukocytosis and thrombocytosis 3. Renal dysfunction 4. URI Plan: Ms. Arriola is a very pleasant 62 yo female with multiple comorbidities as listed above in history who is here for URI symptoms, found to be significantly anemic, normocytic, with negative FOBT and mildly elevated WBC/plt. Leukocytosis and thrombocytosis likely reactive. Anemia of unclear etiology at this time and requires further work up. No obvious sources of bleeding. Could be related to infection. Will obtain retic, hemolysis labs, B12, folate, iron panel, SPEP/FLC, hepatitis panel, HIV, EBV, CMV, parvo, TSH, and TIFF. Consider further work up if initial work up unremarkable and pt continues to be anemic. Discussed with pt and she is agreeable to the plan. All questions answered.
[2018-07-13] MEDS: SODIUM CHLORIDE 0.9% 1,000 ML IV SCH ×2 (04:30→17:16)
[2018-07-13 07:15] LABS: Glucose,Whole Blood 142 mg/dL (75-99)
[2018-07-13 07:19] LABS: Reticulocyte % 0.7 % (0.5-2.0)
[2018-07-13] MEDS: ASPIRIN 81 MG PO SCH (07:50)
[2018-07-13] MEDS: LORATADINE 10 MG TAB PO SCH (07:50)
[2018-07-13] MEDS: SERTRALINE 100 MG TAB PO SCH (07:50)
[2018-07-13] MEDS: TRIAMCINOLONE 0.1% CREAM 80 GM TUBE TOPICAL SCH ×4 (07:51→21:27)
[2018-07-13] MEDS: INSULIN ASPART (NovoLOG) 100 UNIT/ML VIAL SQ SCH ×4 (07:55→20:43)
[2018-07-13 11:19] LABS: Glucose,Whole Blood 150 mg/dL (75-99)
[2018-07-13 16:55] LABS: Glucose,Whole Blood 144 mg/dL (75-99)
[2018-07-13 20:39] LABS: Glucose,Whole Blood 155 mg/dL (75-99)
[2018-07-13] MEDS: ATORVASTATIN 80 MG TAB PO SCH (20:43)
[2018-07-13] MEDS: LISINOPRIL 20 MG TAB PO SCH (20:43)
[2018-07-14] MEDS: SODIUM CHLORIDE 0.9% 1,000 ML IV SCH (06:00)
[2018-07-14 07:03] LABS: Glucose,Whole Blood 125 mg/dL (75-99)
[2018-07-14] MEDS: INSULIN ASPART (NovoLOG) 100 UNIT/ML VIAL SQ SCH ×2 (07:14→12:28)
[2018-07-14] MEDS: ASPIRIN 81 MG PO SCH (08:49)
[2018-07-14] MEDS: LORATADINE 10 MG TAB PO SCH (08:49)
[2018-07-14] MEDS: SERTRALINE 100 MG TAB PO SCH (08:49)
[2018-07-14] MEDS: TRIAMCINOLONE 0.1% CREAM 80 GM TUBE TOPICAL SCH ×2 (08:49→12:28)
[2018-07-14 09:14] LABS: Basophils # (A) 0.1 k/uL (0-0.2); Basophils % (A) 1 %; Eosinophils # (A) 0.2 k/uL (0-0.7); Eosinophils % (A) 2 %; HCT 32.6 % (34.0-46.0); HGB 9.8 gm/dL (11.4-16.0); Hypochromasia Slight; Lymphocytes # (A) 1.4 k/uL (1.0-4.8); Lymphocytes % (A) 14 %; MCH 27.8 pg (25.0-35.0); MCHC 30.1 g/dL (31.0-37.0); MCV 92.2 fL (80.0-100.0); Mean Platelet Volume 6.9; Monocytes # (A) 0.7 k/uL (0-1.0); Monocytes % (A) 7 %; Neutrophils # (A) 7.6 k/uL (1.3-7.7); Neutrophils % (A) 75 %; Platelet Count 430 k/uL (150-450); RBC 3.53 m/uL (3.80-5.40); WBC 10.2 k/uL (3.8-10.6)
[2018-07-14 10:57] LABS: Parvovirus B-19 IgM Antibodies 0.22 INDEX (<=0.90)
[2018-07-14 10:58] LABS: Parvovirus B-19 IgG Antibodies 3.33 INDEX (<=0.90)
[2018-07-14 11:04] LABS: Glucose,Whole Blood 146 mg/dL (75-99)
[2018-07-14 11:29] LABS: Folate, Serum >24.0 ng/mL; Iron Saturation 6.64 (12.00-45.00)
[2018-07-14 11:45] VITALS: BP 119/72; PULSE 88; RESP 18; TEMP 98.1
--- NOTE | 2018-07-14 12:06 | P.PN ---
Subjective Progress Note Date: 07/14/18 Principal diagnosis: Normocytic anemia, neutrophilia In follow-up today patient states she is doing well, she believes she is being discharged. At the time of examination labs were not available. states she follows with Dr. Dumont is her primary care. We will ensure that information gets to him regarding her anemia and leukocytosis. Patient denies fevers, nausea, her appetite is fair, she is has a dry cough, no nausea, abdominal pain, dysuria, hematuria, she states polyuria with "bubbly" urine, no foul odorous, no diarrhea or constipation. Patient states that she has anxiety itching which is the cause of all of her scabbed lesions on her extremities. States the itching is better, she feels that the lesions are improved. Objective - Vital Signs Vital signs: Vital Signs Temp 98.1 F 07/14/18 11:44 Pulse 88 07/14/18 11:44 Resp 18 07/14/18 11:44 BP 119/72 07/14/18 11:44 Pulse Ox 97 07/14/18 11:44 Intake & Output 07/13/18 07/14/18 07/14/18 18:59 06:59 18:59 Intake Total 240 830 Balance 240 830 Intake: Oral 240 830 Other: Voiding Method Toilet Toilet # Voids 3 3 # Bowel Movements 1 - Constitutional General appearance: Present: cooperative, no acute distress - EENT Eyes: Present: anicteric sclerae, EOMI ENT: Present: hearing grossly normal, normal oropharynx - Respiratory Respiratory: bilateral: CTA - Cardiovascular Rhythm: regular Heart sounds: normal: S1, S2 Abnormal Heart Sounds: Absent: systolic murmur, diastolic murmur, rub, S3 Gallop, S4 Gallop, click, other - Peripheral edema leg Peripheral Edema: bilateral: None - Gastrointestinal General gastrointestinal: Present: normal bowel sounds, soft. Absent: absent bowel sounds, decreased bowel sounds, distended, hepatomegaly, hyperactive bowel sounds, organomegaly, rigid, scaphoid, splenomegaly, tenderness, umbilical herni a, ventral hernia - Integumentary Integumentary Comment(s): Multiple scabs, circular lesions of the distal extremities, upper and lower, no drainage noted, redness around the scabs - Neurologic Neurologic: Present: CNII-XII intact - Musculoskeletal Musculoskeletal: Present: strength equal bilaterally - Psychiatric Psychiatric: Present: A&O x's 3, appropriate affect, intact judgment & insight - Labs CBC & Chem 7: 07/14/18 08:39 07/12/18 09:50 Labs: Abnormal Lab Results - Last 24 Hours (Table) 07/13/18 07/13/18 07/13/18 Range/Units 06:45 06:45 16:54 RBC (3.80-5.40) m/uL Hgb (11.4-16.0) gm/dL Hct (34.0-46.0) % MCHC (31.0-37.0) g/dL POC Glucose (mg/dL) 144 H (75-99) mg/dL Iron 16 L (50-170) ug/dL Iron Saturation 6.64 L (12.00-45.00) Parvovirus B19 IgG Ab 3.33 H (<=0.90) INDEX 07/13/18 07/14/18 07/14/18 Range/Units 20:37 07:00 08:39 RBC 3.53 L (3.80-5.40) m/uL Hgb 9.8 L (11.4-16.0) gm/dL Hct 32.6 L (34.0-46.0) % MCHC 30.1 L (31.0-37.0) g/dL POC Glucose (mg/dL) 155 H 125 H (75-99) mg/dL Iron (50-170) ug/dL Iron Saturation (12.00-45.00) Parvovirus B19 IgG Ab (<=0.90) INDEX 07/14/18 Range/Units 11:02 RBC (3.80-5.40) m/uL Hgb (11.4-16.0) gm/dL Hct (34.0-46.0) % MCHC (31.0-37.0) g/dL POC Glucose (mg/dL) 146 H (75-99) mg/dL Iron (50-170) ug/dL Iron Saturation (12.00-45.00) Parvovirus B19 IgG Ab (<=0.90) INDEX Microbiology - Last 24 Hours (Table) 07/11/18 23:38 Blood Culture - Preliminary Blood No Growth after 48 hours Assessment and Plan (1) Normocytic anemia Narrative/Plan: Patient is status post 1 unit of packed red blood cells for hemoglobin of 6.8 on admission, her hemoglobin is 9.8 today, no transfusion needed. Hemoglobin has been stable posttransfusion. Recommend follow-up in 1-2 weeks to monitor hemoglobin to ensure stability. Anemia workup that has returned thus far shows iron deficiency. Patient can be started on oral iron supplementation 1 tablet twice a day. Recommend rechecking iron studies and 4-6 weeks. As long as patient tolerates and there is an adequate response patient can continue on oral iron. Patient is unable to tolerate iron supplementation or an adequate response is not achieved recommendation would be for parenteral iron. Patient states a history of colonoscopy in the last couple of years. Patient denies ever having an EGD. Current Visit: Yes Status: Acute Priority: High Code(s): D64.9 - ANEMIA, UNSPECIFIED SNOMED Code(s): 643799684 (2) Leukocytosis Narrative/Plan: Leukocytosis and neutrophilia have returned to normal limits. Suspect reactive to patient's urinary tract and upper respiratory tract infections. Current Visit: Yes Status: Acute Priority: Low Code(s): D72.829 - ELEVATED WHITE BLOOD CELL COUNT, UNSPECIFIED SNOMED Code(s): 435121645 (3) Polyuria Narrative/Plan: Multifactorial including chronic kidney disease, diabetes mellitus and recent urinary tract infection. Current Visit: Yes Status: Chronic Priority: Medium Code(s): R35.8 - OTHER POLYURIA SNOMED Code(s): 64655295 Plan: There are still some outstanding labs. We will send information to patient's primary care physician Dr. Dumont as it becomes available with recommendations. Patient does have a degree of kidney disease, she states she is a stage II. Patient could be a candidate for erythropoietin supplementation if an adequate response is not achieved with iron supplementation.
[2018-07-14 12:23] LABS: Hepatitis A Antibody IgM Non-Reactive (Non-Reactive); Hepatitis B Core IgM Non-Reactive (Non-Reactive)
[2018-07-14 12:49] LABS: Protein, Total 5.9 g/dL (6.2-8.2)
[2018-07-14 14:08] LABS: EBV-VCA (IgG) >8.0 AI
--- NOTE | 2018-07-14 15:17 | PN ---
PROGRESS NOTE DATE OF SERVICE: 07/13/2018. CHIEF COMPLAINT: Unexplained anemia. HISTORY OF PRESENT ILLNESS: This lady continues to do well. She has been seen by Hematology and it does not sound as though there are any further plans for further workup or studies. PHYSICAL EXAM: Chest is clear and cardiac exam is normal. The abdomen is soft and protuberant. Extremities are normal. She does have the neurodermatitis. IMPRESSION: 1. Unexplained anemia. 2. Diabetes mellitus. 3. Dehydration. 4. Urinary tract infection. 5. Neurotic excoriations. PLAN: If nothing further is planned by Hematology, she will probably be able to go home tomorrow. MMODL / IJN: [id number] /
[2018-07-14 18:13] LABS: HIV 1 AB Non-Reactive (Non-Reactive); HIV AB P24 Non-Reactive (Non-Reactive); HIV P24 AG Non-Reactive (Non-Reactive)
--- NOTE | 2018-07-14 18:38 | DS ---
DISCHARGE SUMMARY CHIEF COMPLAINT: Anemia and urinary tract infection. HISTORY OF PRESENT ILLNESS AND PHYSICAL EXAM: Details of this lady's history and physical can be found in the initial workup. LABORATORY STUDIES: While she was in the hospital, she had laboratory studies, details of which can be found in the laboratory section of her chart. COURSE IN HOSPITAL: After admission, she was placed on bedrest and started on intravenous fluids and had her hemoglobin monitored. There was no sign of GI or urinary blood loss. She was seen by Hematology. She did receive 1 unit packed cells and her hemoglobin is stabilized. It was felt that she could go home and continue workup as an outpatient and she will go home on her usual diet, activity, medication and be seen in the office in several days. FINAL DIAGNOSES: 1. Unexplained anemia. 2. Neurotic excoriations. 3. Hypertension. 4. Diabetes. OPERATIONS: None. CONSULTATIONS: Hematology. She is improved. MMODL / DONNY: [id number] /
[2018-07-15 10:11] LABS: Albumin 2.62 g/dL (3.80-4.90); Gamma Globulin 0.84 g/dL (0.70-1.50)
[2018-07-15 16:27] LABS: ANA Pattern See Footnote
[2018-07-16] MEDS ORDERED: ERGOCALCIFEROL 50,000 UNIT CAP PO SCH (09:00)
== END 2018-07-14 14:50 | disposition home or self-care (01) ==
LOC: EC 20:58 → 3NMEDONC 07-12 01:10 → INTOOBSV 07-12 01:10 → UNDODISIN 07-14 14:50
PROVIDERS: ADMIT Family Medicine; ATTEND Family Medicine
DX: N39.0 Urinary tract infection, site not specified (principal); D64.9 Anemia, unspecified; E11.22 Type 2 diabetes mellitus with diabetic chronic kidney disease; E78.5 Hyperlipidemia, unspecified; E86.0 Dehydration; F41.9 Anxiety disorder, unspecified; I12.9 Hypertensive chronic kidney disease with stage 1 through stage 4 chronic kidney disease, or unspecified chronic kidney disease; J06.9 Acute upper respiratory infection, unspecified; N18.9 Chronic kidney disease, unspecified; F32.9 Major depressive disorder, single episode, unspecified; D47.3 Essential (hemorrhagic) thrombocythemia; D72.829 Elevated white blood cell count, unspecified; L98.1 Factitial dermatitis; M19.90 Unspecified osteoarthritis, unspecified site; Z79.899 Other long term (current) drug therapy; Z79.82 Long term (current) use of aspirin; Z91.81 History of falling
CPT/HCPCS: 96361 ×2; 96365; 99284; 36415 ×2; 93005; 86900; 86901; 86747 ×2; 86665 ×2; 80053 ×2; 80074; 86663; 84443; 82607; 82728; 82746; 83540; 83550; 83605; 83615; 85025 ×3; 85045; 86850; 86920; 82272; 81001; 87040; 86664; 84165; 83010; 86038; 86039; 87502; 87390; 86334; 83883; 83036; 71046; 36430; G0378 ×3; P9016; J0696

== ENCOUNTER 2018-08-15 06:31 | Day surgery (SDC) | payer OTHER ==
[2018-08-13 14:51] VITALS: BMI 40.8
[~2018-08-15 06:31] MED LIST changes: -DEXAMETHASONE SOD PHOSPHATE 10 MG/ML 1 ML VIAL IV ONE; -LIDOCAINE 1% 20 ML VIAL (10MG/ML) FOR IV START INTRADERMA PRN; -MORPHINE SULFATE 4MG/4ML SYRG IV PRN; -ONDANSETRON 4 MG/2 ML VIAL IVP ONE; -SCOPOLAMINE 1.5MG/72HR PATCH TRANSDERM ONE; -ceFAZolin IN SWFI 2 GM/20 ML SYRINGE IVP ONE
[2018-08-15 07:16] VITALS: TEMP 98.1
[2018-08-15] MEDS ORDERED: LIDOCAINE 1% 20 ML VIAL (10MG/ML) FOR IV START SQ ONE (07:16)
[2018-08-15] MEDS ORDERED: PROPOFOL 10 MG/ML 20 ML VIAL IV ONE (07:31)
[2018-08-15 07:32] LABS: Glucose,Whole Blood 144 mg/dL (75-99)
--- NOTE | 2018-08-15 07:53 | P.PCN ---
Date of Procedure: 08/15/18 Procedure(s) Performed: Brief history: Patient is a pleasant 8-year-old white female, scheduled for an elective upper endoscopy as well as colonoscopy as a part of evaluation of iron deficiency anemia. She denies any GI symptoms. Procedure performed: Esophagogastroduodenoscopy with biopsy Colonoscopy Preoperative diagnosis: Iron deficiency anemia Anesthesia: [facility] Procedure: After informed consent was obtained from the patient was brought into the endoscopy unit and IV sedation was administered by anesthesia under continuous monitoring. Initially upper endoscopy was done. The Olympus GF 160 video endoscope was inserted inserted into the mouth and esophagus intubated without any difficulty and was gradually advanced into the stomach and duodenum and carefully examined. The bulb and second part of the duodenum appeared normal. Absolute done from the duodenum to rule out celiac disease. The scope was then withdrawn into the stomach adequately insufflated with air and upon careful examination the antrum mild diffuse gastritis and biopsies were done from this area. The body, cardia and fundus appeared normal. The scope was then withdrawn into the esophagus. The GE junction was located at 40 cm to the incisors. It appeared regular with no erythema erosions or ulcerations. Rest of the esophagus appeared normal. Patient tolerated the procedure well. At this time the patient continued to remain sedation. Initial digital rectal examination was normal. Olympus CF 160 video colonoscope was then inserted into the rectum and gradually advanced to the cecum without any difficulty. Careful examination was performed as the scope was gradually being withdrawn. The prep was excellent. The cecum, ascending colon, transverse colon, descending colon, sigmoid colon and rectum appeared normal. Retroflexion was performed in the rectum and no lesions were noted. Scattered sigmoidal diverticulosis. Patient tolerated the procedure well. Impression: 1. Upper endoscopy revealed mild diffuse gastritis but no evidence of esophagitis or peptic ulcer disease 2. Colonoscopy was essentially within normal limits with no evidence of colitis or colorectal neoplasia Recommendations: Findings of this examination were discussed with the patient as well as her family. She was advised to follow with the biopsy results. She was advised to start on iron supplements. Have a repeat scanning colonoscopy in 10 years
[2018-08-15 08:23] VITALS: BP 144/81; PULSE 73; RESP 18
== END 2018-08-15 09:00 | disposition home or self-care (01) ==
LOC: ORWHC2ENDO 06:31
PROVIDERS: ATTEND Internal Medicine Gastroenterology
DX: D50.9 Iron deficiency anemia, unspecified (principal); K57.30 Diverticulosis of large intestine without perforation or abscess without bleeding; K29.50 Unspecified chronic gastritis without bleeding; I10 Essential (primary) hypertension; E78.5 Hyperlipidemia, unspecified; E11.9 Type 2 diabetes mellitus without complications; E66.01 Morbid (severe) obesity due to excess calories; Z68.41 Body mass index [BMI] 40.0-44.9, adult; Z98.51 Tubal ligation status; Z79.899 Other long term (current) drug therapy; Z79.82 Long term (current) use of aspirin; Z98.890 Other specified postprocedural states
CPT/HCPCS: 45378; 43239; 88305; J2704

== ENCOUNTER → 2018-08-19 | Outpatient (CLI) | payer OTHER ==
--- NOTE | 2018-08-20 11:12 | MM ---
Reason for exam: screening (asymptomatic). Last mammogram was performed 1 year and 1 month ago. History: Patient is postmenopausal. Family history of breast cancer in mother at age 50. Took hormonal contraceptives for 6 years. Physical Findings: A clinical breast exam by your physician is recommended on an annual basis and results should be correlated with mammographic findings. MG Screening Mammo w CAD Bilateral CC and MLO view(s) were taken. Prior study comparison: July 16, 2017, bilateral MG screening mammo w CAD. May 28, 2016, bilateral MG screening mammo w CAD. There is a stable left retroareolar mass back to 2016. Benign appearing similar calcifictions in the left breast. No suspicious abnormality. ASSESSMENT: Benign, BI-RAD 2 RECOMMENDATION: Routine screening mammogram of both breasts in 1 year.
== END ==
LOC: RADMAMWWP 13:59
PROVIDERS: ATTEND Family Medicine
DX: Z12.31 Encounter for screening mammogram for malignant neoplasm of breast (principal); Z80.3 Family history of malignant neoplasm of breast
CPT/HCPCS: 77067

== ENCOUNTER → 2019-02-23 | Outpatient (CLI) | payer OTHER ==
--- NOTE | 2019-02-23 16:42 | CT ---
EXAMINATION TYPE: CT iac wo con DATE OF EXAM: 02/23/2019 COMPARISON: None HISTORY: Chronic sinusitis and right ear pain. CT DLP: 144.2 mGycm. Automated Exposure Control for Dose Reduction was Utilized. TECHNIQUE: CT scan of internal auditory canal is performed without contrast, thin cut axial images ar e obtained, coronal reformatted images are also reviewed. FINDINGS: The external auditory canals are patent bilaterally. Mastoid air cells show no evidence of abnormal opacification bilaterally. The middle ear ossicles are symmetric and unremarkable. There is no evidence of suspicious surrounding soft tissue density to suggest cholesteatoma. The scutum is preserved bilaterally. The cochlea and the semicircular canals are symmetric and unremarkable. Ves tibular aqueduct and internal carotid canal appear unremarkable. Temporomandibular joints are maintained bilaterally. There is mild mucosal thickening and retention c yst within the left maxillary sinus. Remaining paranasal sinuses and mastoid air cells are clear. Pet melecio ridges are aerated.. Visualized portion brain parenchyma is felt within normal limits. IMPRESSION: 1. No significant abnormality seen to account for patient's symptoms.
--- NOTE | 2019-02-23 16:44 | CT ---
EXAMINATION TYPE: CT sinus wo con DATE OF EXAM: 02/23/2019 COMPARISON: None HISTORY: Chronic sinusitis and right ear pain. CT DLP: 624.5 mGycm CONTRAST: None The paranasal sinuses are examined in the axial plane at 2 mm thick sections. Reconstructed images i n the coronal plane were obtained. There is a small retention cyst within the posterior medial left maxillary sinus. The ethmoid air ce lls are clear. The sphenoid sinuses are clear. The frontal sinuses are clear. The septum is evaluated. There is septal deviation to the right. The ostiomeatal units are patent. IMPRESSIONS: 1. Small retention cyst within the left maxillary sinus.
== END | disposition home or self-care (01) ==
LOC: RADCTMAIN 15:34
PROVIDERS: ATTEND Otolaryngology Facial Plastic Surgery
DX: J34.1 Cyst and mucocele of nose and nasal sinus (principal); J32.9 Chronic sinusitis, unspecified; H92.01 Otalgia, right ear
CPT/HCPCS: 70480; 70486

== ENCOUNTER → 2019-11-09 | Outpatient (CLI) | payer OTHER ==
--- NOTE | 2019-11-10 11:21 | MM ---
Reason for exam: screening (asymptomatic). Last mammogram was performed 1 year and 3 months ago. History: Patient is postmenopausal. Family history of breast cancer in mother at age 50. Took hormonal contraceptives for 6 years. Physical Findings: A clinical breast exam by your physician is recommended on an annual basis and results should be correlated with mammographic findings. MG Screening Mammo w CAD Bilateral CC and MLO view(s) were taken. Prior study comparison: August 19, 2018, bilateral MG screening mammo w CAD. July 16, 2017, bilateral MG screening mammo w CAD. There are scattered fibroglandular densities. There are benign appearing round calcifications bilaterally. There is no discrete abnormality. ASSESSMENT: Benign, BI-RAD 2 RECOMMENDATION: Routine screening mammogram of both breasts in 1 year.
== END | disposition home or self-care (01) ==
LOC: RADMAMWWP 12:46
PROVIDERS: ATTEND Family Medicine
DX: Z12.31 Encounter for screening mammogram for malignant neoplasm of breast (principal)
CPT/HCPCS: 77067

== ENCOUNTER → 2019-11-12 | Outpatient (CLI) | payer OTHER ==
--- NOTE | 2019-11-12 23:30 | SFUN ---
SLEEP CENTER FOLLOW UP NOTE DATE OF SERVICE: November 12, 2019 This 64-year-old lady has been followed in Sleep Center for her sleep problems. According to patient presently she developed more problem to breathe through the nose and started to sleep with her mouth open. She was seen by Ear, Nose and Throat physician and ENT physician interest to recheck her breathing during the sleep. The patient continued to have some awakenings during sleep and has sleepiness during the day. [place] Sleepiness Scale increased to 13. She is on treatment with ropinirole mg at bedtime for periodic limb movements. Previous sleep study showed severe periodic limb movements 86.7 times per hour. MEDICATIONS: Metformin, tramadol, benazepril, loratadine, oxybutynin, omeprazole, atorvastatin. PHYSICAL EXAMINATION: GENERAL: Patient in no distress. VITAL SIGNS: BP 124/76, HR 84, RR 16, height 5 feet 2 inches, weight 220.8, temperature 98.4, oxygen saturation at room air 98%, HEENT: PERRLA, EOMI. Oropharynx moderately low position of soft palate. Mallampati 3. NECK: Supple, no JVD. Thyroid is not palpable. LUNGS: Clear to percussion and to auscultation. Good air exchange. No wheezing or rhonchi. HEART: S1, S2 regular. No murmurs, gallops, or rubs. ABDOMEN: Obese. EXTREMITIES: No clubbing or cyanosis. MANAGER CLINICAL RESEARCH: Awake, alert, and oriented X3. Cranial nerves 2 to 7 intact. There is no fasciculation or atrophy. noted. No focal deficits observed. IMPRESSION: 1. The patient developed more problems to breathe through the nose, open mouth during the sleep, possibly obstructive sleep apnea-hypopnea syndrome. 2. Severe periodic limb movements. 3. Patient has symptoms of sleepiness occasionally take naps. [place] Sleepiness Scale significantly increased to 13. 4. Obesity. 5. Hypertension. 6. Diabetes mellitus. 7. Hyperlipidemia. 8. History of depression. 9. Knee arthritis. 10.Back problems. 11.Status post tonsillectomy. 12.Status post tubal ligation. PLAN: 1. Polysomnography for evaluation of patient's breathing during sleep at the present time because her nasal breathing became worse. 2. Continue treatment with dopaminergic agonist for periodic limb movements, switching medication from ropinirole to pramipexole could be considered. 3. Losing weight. 4. Sleep hygiene with regular time in bed for at least 7-1/2 to 8 hours. 5. No driving if feeling sleepiness. 6. Following plan after reviewing results of sleep study. Thank you very much for allowing me to participate in management of your patient. Sincerely, Vince Gonzales MD, PhD, FAASM Diplomat of [place] [employer] [place] [employer] Development Consultant of [facility] [place] MMODL / IJN: [id number] /
== END | disposition home or self-care (01) ==
LOC: SLEEP 14:02
PROVIDERS: ATTEND Internal Medicine
DX: G47.61 Periodic limb movement disorder (principal); E66.9 Obesity, unspecified; I10 Essential (primary) hypertension; E11.9 Type 2 diabetes mellitus without complications; E78.5 Hyperlipidemia, unspecified; M53.9 Dorsopathy, unspecified; Z87.39 Personal history of other diseases of the musculoskeletal system and connective tissue; Z86.59 Personal history of other mental and behavioral disorders

== ENCOUNTER → 2020-02-26 | Outpatient (CLI) | payer OTHER | END | disposition home or self-care (01) | LOC: LABWHC1 14:40 | PROVIDERS: ATTEND Orthopaedic Surgery | DX: Z01.812 Encounter for preprocedural laboratory examination (principal) | CPT/HCPCS: 87070 ==

== ENCOUNTER → 2020-03-22 | Outpatient (CLI) | payer OTHER ==
[2020-03-22 12:25] LABS: Basophils # (A) 0.1 k/uL (0-0.2); Basophils % (A) 1 %; Eosinophils # (A) 0.3 k/uL (0-0.7); Eosinophils % (A) 2 %; HCT 39.1 % (34.0-46.0); HGB 12.6 gm/dL (11.4-16.0); Lymphocytes # (A) 1.8 k/uL (1.0-4.8); Lymphocytes % (A) 13 %; MCH 30.9 pg (25.0-35.0); MCHC 32.1 g/dL (31.0-37.0); MCV 96.2 fL (80.0-100.0); Mean Platelet Volume 6.3; Monocytes # (A) 0.7 k/uL (0-1.0); Monocytes % (A) 6 %; Neutrophils # (A) 10.1 k/uL (1.3-7.7); Neutrophils % (A) 77 %; Platelet Count 371 k/uL (150-450); RBC 4.06 m/uL (3.80-5.40); RDW 12.6 % (11.5-15.5); WBC 13.2 k/uL (3.8-10.6)
[2020-03-22 12:31] LABS: Prothrombin Time 10.5 sec (9.0-12.0)
[2020-03-22 12:33] LABS: Potassium 4.8 mmol/L (3.5-5.1)
== END | disposition home or self-care (01) ==
LOC: LABPAT 11:04
PROVIDERS: ATTEND Orthopaedic Surgery
DX: Z01.812 Encounter for preprocedural laboratory examination (principal); M17.11 Unilateral primary osteoarthritis, right knee
CPT/HCPCS: 36415; 80051; 85025; 85610

== ENCOUNTER 2020-03-28 06:24 | Observation (INO) | payer OTHER ==
[2020-03-21 18:37] VITALS: BMI 38.9
--- NOTE | 2020-03-27 12:34 | HP ---
HISTORY AND PHYSICAL REASON FOR ADMISSION: Surgery scheduled 03/28/2020. Naty Alba is a 64-year-old patient seen with symptomatic right knee osteoarthritis. We discussed options for treatment. She elected to proceed with right total knee arthroplasty. Consent was obtained. Medical clearance by Dr. Dumont. PAST MEDICAL HISTORY: Hypertension, hyperlipidemia, tkw-frfaxgs-upxxavufc diabetes, depression. PAST SURGICAL HISTORY: Abdominoplasty, knee arthroscopy, tubal ligation, tonsillectomy. DAILY MEDICATIONS: Atorvastatin, benazepril, Loratadine, metformin, tramadol. ALLERGIES: None. SOCIAL HISTORY: She denies tobacco use. PHYSICAL EVALUATION OF THE RIGHT KNEE: Range of motion negative 2 to 115. Tenderness medial joint line. Crepitus medial patellofemoral compartments with range of motion. Pain with patellofemoral compression. Ligaments stable. Hip rotation without pain. Distal neurovascular exam intact. RADIOGRAPHS: Right knee radiographs reveal severe osteoarthritic changes. IMPRESSION: 1. Right knee osteoarthritis. 2. Hypertension. 3. Hyperlipidemia. 4. Dva-xkgjsjh-oivejgogz diabetes. PLAN: Right total knee arthroplasty. Surgery scheduled 03/28/2020. MMODL / IJN: [id number] /
[~2020-03-28 06:24] MED LIST changes: +ACETAMINOPHEN TAB 500 MG TAB PO PRN; +DEXAMETHASONE SOD PHOSPHATE 4 MG/ML 1 ML VIAL IV ONE; -LACTATED RINGERS 1,000 ML IV SCH; +MELOXICAM 7.5 MG TAB PO PRN; +MORPHINE SULFATE 2 MG/ML SYRINGE IV PRN; +ONDANSETRON 4 MG/2 ML VIAL IVP ONE; +TRANEXAMIC ACID 1,000 MG in SODIUM CHLORIDE 0.9% 100 ML IVPB PRN
[2020-03-28] MEDS: LACTATED RINGERS 1,000 ML IV SCH ×3 (07:42→21:08)
[2020-03-28 07:44] LABS: Glucose,Whole Blood 124 mg/dL (75-99)
[2020-03-28] MEDS ORDERED: fentaNYL (PF) 50 MCG/ML 2 ML AMP IV ONE (08:09)
[2020-03-28] MEDS ORDERED: MIDAZOLAM 2 MG/2 ML VIAL IV ONE (08:09)
--- NOTE | 2020-03-28 08:41 | P.ANPRN ---
Procedure Note - Anesthesia - Nerve Block Performed Right Adductor Canal Infusion Time Out Performed: Yes (808) Date of Procedure: 03/28/20 Procedure Start Time: 08:09 Procedure Stop Time: 08:16 Location of Patient: PreOp Indication: Acute Post-Operative Pain, Requested by Surgeon Specifically requested for management of pain by DrDarrin: Дмитрий Mckeon Sedation Type: Sedate with meaningful contact maintained Preparation: Sterile Prep Position: Supine Catheter Depth at Skin (cm): 10 Catheter: Indwelling Needle Types: Pajunk Needle Gauge: 21 Ultrasound used to visualize needle placement: Yes Ultrasound used to observe medication spread: Yes Injectate: 0.5% Ropivacaine (see comment for volume) (20cc`) Blood Aspirated: No Pain Paresthesia on Injection Noted: No Resistance on Injection: Normal Image Stored and Saved: Yes Events: Uneventful and Well Tolerated
[2020-03-28] MEDS ORDERED: PROPOFOL 10 MG/ML 20 ML VIAL IV ONE (09:25)
[2020-03-28] MEDS ORDERED: TRANEXAMIC ACID 1,000 MG/10 ML VIAL ONE (09:25)
[2020-03-28] MEDS ORDERED: SODIUM CHLORIDE 0.9% 100 ML BAG ONE (09:25)
[2020-03-28] MEDS ORDERED: MIDAZOLAM 2 MG/2 ML VIAL ONE (09:25)
[2020-03-28] MEDS ORDERED: fentaNYL (PF) 50 MCG/ML 2 ML AMP ONE (09:25)
[2020-03-28] MEDS ORDERED: ceFAZolin 1,000 MG in SODIUM CHLORIDE 0.9% 1,000 ML IRRIGATION ONE (09:55)
[2020-03-28] MEDS: ROPIVACAINE/EPI/CLONIDINE/KET 50 ML SYRINGE MISCELLANE PRN ×2 (09:56→10:35)
[2020-03-28] MEDS ORDERED: LACTATED RINGERS 1,000 ML IV ONE (10:13)
[2020-03-28] MEDS ORDERED: ROPIVACAINE 0.2%-NS ON-Q PUMP 1,090 MG, EMPTY PAIN BALL 1 EACH MISCELLANE PRN (11:09)
[2020-03-28] MEDS ORDERED: HYDROcodone/APAP 5-325MG 1 EACH TAB PO PRN (11:12)
[2020-03-28] MEDS ORDERED: HYDROmorphone 1 MG/ML 1 ML SYRINGE IVP PRN (11:12)
[2020-03-28] MEDS ORDERED: HYDROmorphone 0.2 MG/1 ML SYRINGE IVP PRN (11:12)
[2020-03-28] MEDS ORDERED: ONDANSETRON 4 MG/2 ML VIAL IVP PRN (11:12)
[2020-03-28] MEDS ORDERED: NALOXONE 0.4 MG/ML 1 ML VIAL IV PRN (11:12)
--- NOTE | 2020-03-28 11:12 | P.OP ---
Date of Procedure: 03/28/20 Preoperative Diagnosis: Right knee osteoarthritis Postoperative Diagnosis: Right knee osteoarthritis Procedure(s) Performed: Right total knee arthroplasty Implants: 1. Depuy attune size 4 narrow right cruciate retaining cemented femur 2. Depuy attune size 3 fixed bearing cemented tibial baseplate 3. Depuy attune size 4 fixed bearing cruciate retaining 8 mm polyethylene tibial insert 4. Depuy attune 32 mm all polyethylene cemented patella Anesthesia: regional (Adductor canal catheter), local, spinal Surgeon: Дмитрий Mckeon Production Planning Manager #1: Rc Fuentes Estimated Blood Loss (ml): 45 Pathology: other (Bone) Condition: stable Disposition: PACU Indications for Procedure: 64-year-old patient seen with symptomatic right knee osteoarthritis. After having treatment options discussed, she elected to proceed with total knee arthroplasty. Operative Findings: See description of procedure Description of Procedure: Patient was taken to the operative suite after having an adductor canal catheter placed by the department of anesthesia. Patient underwent a spinal anesthetic by the department of anesthesia. Patient was given preoperative IV intake antibiotics and TXA. A well-padded tourniquet was placed about the right lower extremity. The lower extremity was then prepped and draped in the normal sterile orthopedic fashion. The extremity was elevated, a tourniquet was insufflated to 300. A standard anterior incision was made sharply through skin. Dissection was taken down through the subcutaneous soft tissues down to the extensor mechanism. A medial arthrotomy was performed, patella was everted and knee was flexed. There was advanced osteoarthritis noted. I introduced my distal intramedullary femoral drill. I then introduced the distal femoral c utting jig. Juaquin DRAKE secured the cutting jig with 2 pins. I held retractors in position while Juaquin DRAKE performed the distal femoral resection through the guide area we now removed her distal femoral cutting guide. We now placed our 4-in-1 femoral cutting block and positioned and it was secured with 2 pins by Juaquin DRAKE while I held the block in position. The distal femoral finishing was now completed. A proximal tibial cutting guide was positioned. I held the guide in the appropriate position with both hands well Juaquin DRAKE inserted stabilizing pins into the guide. Proximal tibial cut was made. We now placed a trial femoral component into position, along with an appropriate size tibial tray and insert. We now took the knee through range of motion and had full extension good flexion and good overall soft tissue balance noted. The patella was everted and stabilized with 2 towel clips held by Juaquin DRAKE while I performed a flush with patellar quad tendon utilizing a fresh sawblade. We templated the patella, appropriate drill holes were made. An appropriate trial patella was positioned, knee was taken through full range of motion with the patella tracking very nicely. The trial patella was removed. Drill holes were made through the femoral component. All trial components were removed after marking off the appropriate rotation of the tibia. Retractors were now positioned along the proximal tibia. An appropriate keel punch was made with the appropriate size tibial guide by myself on Juaquin DRAKE assisted by holding retractors. At this point appropriate size implants were chosen and opened. The joint was irrigated copiously with pulse lavage mechanical irrigation. The posterior capsule was infiltrated with local analgesic. The wound was irrigated with pulse lavage mechanical irrigation. We mixed antibiotic methylmethacrylate. We placed the knee into flexion. We placed multiple retractors assisted by Juaquin DRAKE to expose the proximal tibia. Once the methyl methacrylate was ready, the tibial component was cemented into place removing any excess methylmethacrylate form by both myself and Juaquin DRAKE. The femoral component was cemented into place removing the removing any excess methylmethacrylate performed by both myself and Juaquin DRAKE. We then inserted the appropriate size polyethylene tibial insert. We made sure that it was locked into position. We took the knee into full extension, and then back in a flexion making sure we had removed any excess methylmethacrylate. The patellar component was then cemented down and secured with clamp. Excess methylmethacrylate removed. We kept the knee in full extension, patellar clamp in position until methylmethacrylate had hardened. Once it had hardened the patellar clamp was removed. The knee was taken through full range of motion. The patella tracked nicely. There was good soft tissue balancing. The tourniquet was now released. Additional hemostasis was achieved via electrocautery. A second gram of TXA was given. The wound again was irrigated with pulse lavage mechanical irrigation. The superficial soft tissues were infiltrated local analgesic. The extensor mechanism was repaired with Vicryl. We checked the repair with range of motion and it was stable. The subcutaneous soft tissues were repaired with Vicryl in layers. The skin was approximated with pernio/Dermabond. Sterile dressings were applied followed by loose web roll and Elton bandage. The patient was transferred to a bed, and taken to recovery in stable and satisfactory condition. Juaquin DRAKE assisted with this complex procedure.
--- NOTE | 2020-03-28 12:27 | XR ---
Limited right knee HISTORY: Status post right knee arthroplasty 2 views of the right knee Patient is status post right knee arthroplasty. There is anatomic alignment. Lucency is present in th e soft tissues. Small ossific density present at the posterior aspect of the joint on the lateral vie w is questioned measuring approximately 3 mm but not localized on the frontal view. IMPRESSION: Orthopedic follow-up. Question loose body seen on the lateral view.
[2020-03-28 16:39] LABS: Glucose,Whole Blood 225 mg/dL (75-99)
[2020-03-28] MEDS: INSULIN ASPART (NovoLOG) 100 UNIT/ML VIAL SQ SCH ×2 (17:18→21:05)
[2020-03-28] MEDS: HYDROcodone/APAP 5-325MG 1 EACH TAB PO PRN ×2 (17:26→23:14)
[2020-03-28] MEDS ORDERED: ARTIFICIAL TEARS-HYPROMELLOSE DROPS 15 ML BTL BOTH EYES PRN (17:43)
[2020-03-28 20:02] VITALS: RESP 18
[2020-03-28 20:32] LABS: Glucose,Whole Blood 172 mg/dL (75-99)
[2020-03-28] MEDS ORDERED: LATANOPROST 0.005% OPHTH DROPS 2.5 ML BTL BOTH EYES SCH (21:00)
[2020-03-28] MEDS ORDERED: SENNOSIDES-DOCUSATE SODIUM 1 EACH TAB PO SCH (21:00)
[2020-03-28] MEDS ORDERED: lisinopriL 20 MG TAB PO SCH (21:00)
[2020-03-29] MEDS: ENOXAPARIN 30 MG/0.3 ML SYRINGE SQ SCH ×2 (00:06→08:29)
[2020-03-29] MEDS: HYDROmorphone 0.5 MG/0.5 ML SYRINGE IVP PRN ×2 (03:17→08:29)
[2020-03-29] MEDS: HYDROcodone/APAP 5-325MG 1 EACH TAB PO PRN ×2 (05:00→11:12)
[2020-03-29 06:40] LABS: Basophils % (A) 0 %; Eosinophils % (A) 0 %; HCT 30.3 % (34.0-46.0); HGB 10.1 gm/dL (11.4-16.0); Lymphocytes # (A) 2.6 k/uL (1.0-4.8); Lymphocytes % (A) 24 %; MCH 31.4 pg (25.0-35.0); MCHC 33.2 g/dL (31.0-37.0); MCV 94.8 fL (80.0-100.0); Mean Platelet Volume 6.4; Monocytes % (A) 10 %; Neutrophils # (A) 6.8 k/uL (1.3-7.7); Neutrophils % (A) 64 %; Platelet Count 297 k/uL (150-450); RDW 12.6 % (11.5-15.5); WBC 10.8 k/uL (3.8-10.6)
[2020-03-29 06:42] LABS: Glucose,Whole Blood 129 mg/dL (75-99)
[2020-03-29] MEDS: LACTATED RINGERS 1,000 ML IV SCH ×2 (06:47→08:14)
[2020-03-29 07:20] VITALS: BP 107/65; PULSE 76; TEMP 97.9
[2020-03-29] MEDS ORDERED: PANTOPRAZOLE 40 MG TABLET PO SCH (07:30)
[2020-03-29] MEDS: INSULIN ASPART (NovoLOG) 100 UNIT/ML VIAL SQ SCH (08:30)
--- NOTE | 2020-03-29 09:09 | P.PN ---
Progress Note - Text Progress Note Date: 03/29/20 64 y/o female POD #1 right TKA under SAB with Adductor Canal Perineural Catheter for post-op pain management. Catheter infusing without issues Patient reports a VAS of 3-5/10 Has been up and ambulating without any issues. No evidence of fever and no complaints of paresthesias or quadricep weakness. Site clean and dry; no erythema. Patient to be discharged to home today. To follow up as indicated.
--- NOTE | 2020-03-29 10:34 | P.PN ---
Subjective Progress Note Date: 03/29/20 Principal diagnosis: status post right total knee arthroplasty Patient examined at bedside, she is resting comfortably. She's done well with physical therapy. She has no acute pain. She denies any headaches, lightheadedness, chest pain or shortness of breath. Objective - Vital Signs Vital signs: Vital Signs Temp 97.9 F 03/29/20 07:19 Pulse 76 03/29/20 07:19 Resp 18 03/29/20 07:19 BP 107/65 03/29/20 07:19 Pulse Ox 96 03/29/20 07:19 Intake & Output 03/28/20 03/29/20 03/29/20 18:59 06:59 18:59 Intake Total 1901 Output Total 345 Balance 1556 Weight 99.3 kg Intake: IV 1451 Intake, IV Titration 450 Amount Lactated Ringers 1,000 ml 400 @ 100 mls/hr IV .Q10H TAMIR Rx#:[id number] ceFAZolin 2 gm In Sodium 50 Chloride 0.9% 50 ml @ 100 mls/hr IVPB ONCE PRN Rx# :[id number] Output: Urine 300 Estimated Blood Loss 45 Other: Voiding Method Toilet # Voids 3 - Exam Right lower extremity: Incision is clean, dry, and intact. The foam dressing is in good condition. There is minimal soft tissue swelling and ecchymosis surrounding the medial and lateral aspects of the incision. Calf is soft, no tenderness with palpation. Plantar flexion, dorsiflexion, EHL, FHL are intact. Sensory exam to light touch throughout the extremity is intact, dorsal pedis pulses 2+. - Labs CBC & Chem 7: 03/29/20 05:45 Labs: Abnormal Lab Results - Last 24 Hours (Table) 03/28/20 03/28/20 03/29/20 Range/Units 16:37 20:30 05:45 WBC 10.8 H (3.8-10.6) k/uL RBC 3.20 L (3.80-5.40) m/uL Hgb 10.1 L (11.4-16.0) gm/dL Hct 30.3 L (34.0-46.0) % POC Glucose (mg/dL) 225 H 172 H (75-99) mg/dL 03/29/20 Range/Units 06:40 WBC (3.8-10.6) k/uL RBC (3.80-5.40) m/uL Hgb (11.4-16.0) gm/dL Hct (34.0-46.0) % POC Glucose (mg/dL) 129 H (75-99) mg/dL Assessment and Plan Assessment: Status post right total knee arthroplasty Plan: Pain control, discharge on oral medication DVT prophylaxis, Eliquis 2.5 mg twice a day for 2 weeks Home health care and therapy after discharge Icing and elevating techniques discussed Medical recommendations Plan for discharge home today Time with Patient: Less than 30
--- NOTE | 2020-03-29 10:37 | P.DS ---
Providers Date of admission: 03/28/2020 Expected date of discharge: 03/29/20 Attending physician: Дмитрий Mckeon Consults: 03/28/20 11:12 Consult Physician Routine Consulting Provider: Norberto Dumont Consult Reason/Comments: Medical management Do you want consulting provider notified?: Yes Primary care physician: Norberto Dumont Hospital Course: Date of admission: 03/28/2020 Date of discharge: 03/29/2020 Admission diagnosis: Status post post right total knee arthroplasty Discharge diagnosis: Same Attending physician: Dr. Mckeon Surgical procedures: Right total knee arthroplasty Brief history: Patient is a [id number] female with a history of progressive primary right knee osteoarthritis. At this point patient has failed conservative treatment measures and has opted to proceed with a elective right total knee arthroplasty. Hospital course: Details of patient's surgery can be found in operative report. Patient tolerated the procedure well and was subsequently transported to orthopedic floor. Patient's orthopeidc and medical care was provided daily. Patient had daily laboratory tests performed for evaluation of overall blood counts. Patient had daily physical therapy to include strengthening range of motion as well as education with walker ambulation. Patient was treated with Lovenox for their postoperative DVT prophylaxis during their inpatient stay. Patient was noted to have a relatively uneventful postoperative course. Patient reported satisfactory pain control with oral pain medications by postoperative day 0. Patient showed satisfactory progress with physical therapy. Patient moved steadily through the program and had no difficulty meeting the goals by postoperative day 1. Given patient's otherwise satisfactory course and having met physical therapy goals, plan is to discharge patient home on postoperative day 1. Discharge condition/disposition: Patient will be discharged home in stable condition. Discharge medications: Instructions are given on resumption of patient's normal daily medications per primary care recommendation, in addition patient will be prescribed 5 mg/225 mg, Colace 100 mg, Eliquis 2.5 mg. Discharge instructions: 1. Wound care and infection precautions, keep incision dry and covered while showering, no lotions, creams, moisturizers. No soaking, tubs, pools, hottubs. Do not scrub over the incision. 2. Weight-bear as tolerated with walker / cane until follow-up. 3. Ice and elevate when necessary. Do not exceed 20 minutes per hour with ice pack. 4. Utilize compression sleeve until seen at first follow up appointment. 5. Visiting nursing care. 6. Home physical therapy including home CPM. 7. Pain meds and anticoagulants per prescription. 8. Pain medication has potential to cause constipation. Increase oral fluid and fiber intake. Contact primary care provider if you have not had a bowel movement within 48 hours after discharge 9. No anti-inflammatory medication until discussed at first post operative visit, this including Motrin, Aleve, Mobic, Diclofenac 10. Follow up in office at 2 weeks postop with Juaquin Fuentes PA-C 11. Follow up with your primary care doctor 7-10 days after discharge. 12. Contact [facility] with any questions, . Procedures: Right total knee arthroplasty Patient Condition at Discharge: Good Plan - Discharge Summary Discharge Rx Participant: Yes New Discharge Prescriptions: New Docusate [Colace] 100 mg PO DAILY #30 capsule Apixaban [Eliquis] 2.5 mg PO BID #60 tab Hydrocodone/Acetaminophen [[place] 5-325] 1 - 2 each PO Q6HR PRN #56 tab PRN Reason: Pain No Action traMADol HCl [Ultram] 50 mg PO HS Benazepril HCl [Lotensin] 20 mg PO HS Atorvastatin [Lipitor] 80 mg PO HS Aspirin EC [Ecotrin Low Dose] 81 mg PO HS hydrOXYzine HCL [Atarax] 10 mg PO HS Ergocalciferol [Vitamin D2 (DRISDOL)] 50,000 unit PO Q30D Hydrocortisone Cream [Hydrocortisone 2.5% Cream] 1 applic TOPICAL QID PRN PRN Reason: Dry Skin Artificial Tears-Hypromellose [Artificial Tear Drops] 1 drops BOTH EYES DAILY PRN PRN Reason: Dry Eye(S) Multivit with Calcium,Iron,Min [Women's Multivitamin] 1 each PO DAILY Ascorbic Acid [Vitamin C] 500 mg PO DAILY Pramipexole [Mirapex] 0.125 mg PO BID Pilocarpine HCl [Salagen] 5 mg PO BID Oxybutynin Chloride [Ditropan XL] 10 mg PO BID Omeprazole [PriLOSEC] 40 mg PO DAILY metFORMIN HCL [Glucophage] 500 mg PO DAILY Loratadine [Claritin] 10 mg PO DAILY Latanoprost [Xalatan 0.005%] 1 drop BOTH EYES HS Discharge Medication List Aspirin EC [Ecotrin Low Dose] 81 mg PO HS 06/04/15 [History] Atorvastatin [Lipitor] 80 mg PO HS 06/04/15 [History] Benazepril HCl [Lotensin] 20 mg PO HS 06/04/15 [History] traMADol HCl [Ultram] 50 mg PO HS 06/04/15 [History] hydrOXYzine HCL [Atarax] 10 mg PO HS 06/28/17 [History] Artificial Tears-Hypromellose [Artificial Tear Drops] 1 drops BOTH EYES DAILY PRN 07/11/18 [History] Ergocalciferol [Vitamin D2 (DRISDOL)] 50,000 unit PO Q30D 07/11/18 [History] Hydrocortisone Cream [Hydrocortisone 2.5% Cream] 1 applic TOPICAL QID PRN 07/11/18 [History] Ascorbic Acid [Vitamin C] 500 mg PO DAILY 03/21/20 [History] Latanoprost [Xalatan 0.005%] 1 drop BOTH EYES HS 03/21/20 [History] Loratadine [Claritin] 10 mg PO DAILY 03/21/20 [History] Multivit with Calcium,Iron,Min [Women's Multivitamin] 1 each PO DAILY 03/21/20 [History] Omeprazole [PriLOSEC] 40 mg PO DAILY 03/21/20 [History] Oxybutynin Chloride [Ditropan XL] 10 mg PO BID 03/21/20 [History] Pilocarpine HCl [Salagen] 5 mg PO BID 03/21/20 [History] Pramipexole [Mirapex] 0.125 mg PO BID 03/21/20 [History] metFORMIN HCL [Glucophage] 500 mg PO DAILY 03/21/20 [History] Apixaban [Eliquis] 2.5 mg PO BID #60 tab 03/29/20 [Rx] Docusate [Colace] 100 mg PO DAILY #30 capsule 03/29/20 [Rx] Hydrocodone/Acetaminophen [[place] 5-325] 1 - 2 each PO Q6HR PRN #56 tab 03/29/20 [Rx] Follow up Appointment(s)/Referral(s): [facility],Equipment [NON-STAFF] - As Needed (Continuous Passive Motion knee machine) Rc Fuentes, PAC [PHYSICIAN FOURDRINIER MACHINE TENDER] - 2 Weeks [facility] Visiting Nurse, [NON-STAFF] - As Needed Activity/Diet/Wound Care/Special Instructions: Orthopedic Discharge Instructions: 1. Wound care and infection precautions, keep incision dry and covered while showering, no lotions, creams, moisturizers. No soaking, pools, hot tubs. Do not scrub over incision. 2. Weight-bear as tolerated with walker / cane until follow-up. 3. Ice and elevate when necessary. Do not exceed 20 minutes per hour with ice pack. 4. Utilize compression sleeve until seen at first follow up appointment. 5. Pain meds and anticoagulants per prescription. 6. Pain medication has potential to cause constipation. Increase oral fluid and fiber intake. Contact primary care provider if you have not had a bowel movement within 48 hours after discharge. 7. No anti-inflammatory medication until discussed at first post operative visit, this including Motrin, Aleve, Mobic, Diclofenac. 8. Follow up in office at 2 weeks postop with Juaquin Fuentes PA-C 9. Follow up with your primary care doctor 7-10 days after discharge. 10. Contact [facility] with any questions, . Wound care instructions: 1. Okay to remove foam dressing on 04/04/2020 2. Okay to shower over the incision 10 days after surgery Discharge Disposition: HOME WITH HOME HEALTH SERVICES
[2020-03-29 11:38] LABS: Glucose,Whole Blood 156 mg/dL (75-99)
--- NOTE | 2020-03-29 18:30 | PN ---
PROGRESS NOTE DATE OF SERVICE: 03/29/2020 CHIEF COMPLAINT: Status post right TKA. HISTORY OF PRESENT ILLNESS: This lady is doing well. She is not having a lot of pain. She has had no fever, chills, shortness of breath, nausea, etc. PHYSICAL EXAMINATION: Her color is good. Hydration is excellent. Head, ears, eyes, nose and mouth are normal. The chest is clear. Cardiac exam is normal and the abdomen is soft. Dressing is dry. IMPRESSION: Status post right total knee arthroplasty. PLAN: Possibly home today. MMODL / IJN: [id number] /
--- NOTE | 2020-03-29 18:36 | CONS ---
CONSULTATION CHIEF COMPLAINT: Arthritis of the right knee. HISTORY OF PRESENT ILLNESS: This is another visit for this 64-year-old female who has degenerative osteoarthritis of the right knee and has come in for an elective TKA. She has a history of type 2 NIDDM, CKD, hyperlipidemia and hypertension. She has been stable of late, with no problems including chest pain, shortness of breath, abdominal pain, urinary complaints, fever, chills, etc. Past medical history, family history, and personal and social histories reveal that she takes: 1. Oxybutynin 10 mg twice a day. 2. Hydroxyzine 10 mg at bedtime. 3. Loratadine 10 mg a day p.r.n. 4. Omeprazole 40 mg once a day. 5. Benazepril 20 mg once a day. 6. Metformin 500 mg once a day. 7. Atorvastatin 80 mg once a day. 8. Iron. 9. Tramadol 50 mg at bedtime p.r.n. 10.Vitamin D 50,000 once a month. 11.Aspirin 81 mg a day. She does not smoke or drink. PHYSICAL EXAMINATION: Blood pressure is 133/78 with a pulse of 62, respirations of 16. She is afebrile. In general she appears to be slightly overweight and in no acute distress. Skin color is normal. Skin is warm and dry. Lymph nodes are not enlarged. Head, ears, eyes, nose, mouth and throat are normal. Neck veins are not distended. Thyroid is not enlarged. Chest is clear. Cardiac exam is normal. There are no murmurs or extra sounds. Abdomen is soft and nontender. Extremities are normal. Neurologically she is intact. She is admitted to the hospital with the diagnoses: 1. Osteoarthritis of the right knee. 2. Hypertension. 3. Type 2 [id number] diabetes mellitus. RECOMMENDATIONS: None. At present time she is doing well and she presents as an excellent surgical candidate. Thank you. Respectfully, Norberto Dumont II, M.D. ROB / DONNY: [id number] /
== END 2020-03-29 11:49 | disposition home health service (06) ==
LOC: OR 06:24 → 4SSUR 11:12 → OR 03-29 10:15
PROVIDERS: ADMIT Family Medicine; ATTEND Orthopaedic Surgery
DX: M17.11 Unilateral primary osteoarthritis, right knee (principal); E11.22 Type 2 diabetes mellitus with diabetic chronic kidney disease; I12.9 Hypertensive chronic kidney disease with stage 1 through stage 4 chronic kidney disease, or unspecified chronic kidney disease; N18.9 Chronic kidney disease, unspecified; E78.5 Hyperlipidemia, unspecified; F32.9 Major depressive disorder, single episode, unspecified; Z79.84 Long term (current) use of oral hypoglycemic drugs; Z79.82 Long term (current) use of aspirin; Z79.891 Long term (current) use of opiate analgesic; Z79.899 Other long term (current) drug therapy; Z98.51 Tubal ligation status; Z98.890 Other specified postprocedural states
CPT/HCPCS: 97110; 97161; 64448; 76942; 85025; 88300; 73560; 27447; G0378; C1776; C1713; J2250; J1100; J0690 ×2; J2405; J3010; J1650; J2704; J1170; J2795

== ENCOUNTER → 2020-05-19 | Outpatient (CLI) | payer OTHER ==
--- NOTE | 2020-05-19 13:48 | SFUN ---
SLEEP CENTER FOLLOW UP NOTE DATE OF SERVICE: 05/19/2020 A 64-year-old lady who has been followed in the sleep center because of possible obstructive sleep apnea-hypopnea syndrome. Home sleep study from 12/17/2019 showed analyzing time only 1 hour 52 minutes with total apnea-hypopnea index 4.8, but lowest oxygen level of 75%. Most of the time air flower was not reliable. Patient continued to have an awakenings from sleep, feels sleepy during the day. [place] Sleepiness Scale today is 14. Feeling some difficulties to breathe at night. MEDICATIONS: Metformin 500 mg once a day, omeprazole 40 mg once a day, loratadine 10 mg once a day, benazepril 20 mg once at bedtime, tramadol up to 4 daily, atorvastatin 80 mg once at nighttime, aspirin once a day, hydroxyzine 10 mg once a day, pramipexole 2 tablets at bedtime, woman vitamin supplement. PHYSICAL EXAMINATION: GENERAL: Patient in no distress. VITAL SIGNS: BP 152/82, HR 80, RR 12, height 5 feet 2 inches, weight 212.6, temperature 98.1, oxygen saturation at room air 98%. HEENT: PERRLA, EOMI. Oropharynx low position of soft palate. Mallampati 3. NECK: Supple, no JVD. Thyroid is not palpable. LUNGS: Clear to percussion and to auscultation. Good air exchange. No wheezing or rhonchi. HEART: S1, S2 regular. No murmurs, gallops, or rubs. ABDOMEN: Obese. EXTREMITIES: No clubbing or cyanosis. CRYSTAL FLAT GRINDER: Awake, alert, and oriented X3. Cranial nerves 2 to 7 intact. There is no fasciculation or atrophy. noted. No focal deficits observed. IMPRESSION: 1. Difficulties to breathe through the nose, open mouth during the sleep. During insufficient home sleep test in December of 2019, oxygen desaturation to 75%. Possible obstructive sleep apnea-hypopnea syndrome. 2. History of severe periodic limb movements on treatment with pramipexole. 3. Excessive daytime sleepiness. [place] Sleepiness Scale 14. 4. Obesity. 5. Hypertension. 6. Diabetes mellitus. 7. Hyperlipidemia. 8. History of depression. 9. History of knee arthritis. 10.Status post right knee replacement in March of 2020. 11.Back problems. 12.Status post tonsillectomy. 13.Status post tubal ligation. PLAN: 1. I discussed with the patient necessity to proceed with the sleep test. She does not think that she will be able to do the home test. Previous attempt again was not successful. Sensor came out from her face. We should proceed with polysomnogram. 2. Watching and losing weight. 3. Sleep hygiene with regular time in bed for 7-1/2 to 8 hours. 4. No driving if feeling sleepiness. Thank you very much for allowing me to participate in management of your patient. Sincerely, Vince Gonzales MD, PhD, FAASM Diplomat of [employer] [facility] MMODL / IJN: [id number] /
== END | disposition home or self-care (01) ==
LOC: SLEEP 11:49
PROVIDERS: ATTEND Internal Medicine
DX: G47.10 Hypersomnia, unspecified (principal); E66.01 Morbid (severe) obesity due to excess calories; I10 Essential (primary) hypertension; E11.9 Type 2 diabetes mellitus without complications; E78.5 Hyperlipidemia, unspecified; F32.9 Major depressive disorder, single episode, unspecified; Z96.651 Presence of right artificial knee joint; M13.869 Other specified arthritis, unspecified knee; Z90.89 Acquired absence of other organs; Z90.09 Acquired absence of other part of head and neck

== ENCOUNTER 2020-07-06 20:30 | Emergency (ER) | payer OTHER ==
[2020-07-06 20:38] VITALS: RESP 20
[2020-07-06] MEDS ORDERED: ACETAMINOPHEN TAB 500 MG TAB PO STA ×2 (20:41→21:47)
--- NOTE | 2020-07-06 21:22 | XR ---
EXAMINATION TYPE: XR chest 1V portable DATE OF EXAM: 07/06/2020 CLINICAL HISTORY: fever. TECHNIQUE: Portable frontal view of the chest. COMPARISON: 07/11/2018 FINDINGS: The cardiomediastinal silhouette is within normal limits for size. Pulmonary vasculature i s normal. There is no focal air space opacity. No pleural effusion. No pneumothorax seen. No acute d isplaced osseous fracture. IMPRESSION: No acute cardiopulmonary process.
--- NOTE | 2020-07-06 21:26 | ED ---
General Adult HPI - General Chief complaint: Fever Stated complaint: Fever Time Seen by Provider: 07/06/20 20:31 Source: patient Mode of arrival: ambulatory Limitations: no limitations - History of Present Illness Initial comments: Dictation was produced using [employer] dictation software. please excuse any grammatical, word or spelling errors. This patient was cared for during a federal and state declared state of emergency secondary to Covid 19 Chief Complaint: 64-year-old male presents to the emergency department for fevers. History of Present Illness: They do-year-old female she has past medical history of diabetes, dyslipidemia hypertension. Patient states she's been having fevers for the last 3 days. On Saturday she got the second dose of her COVID-19 vaccine. She is recently diagnosed with urinary tract infection on Saturday. She is prescribed Bactrim. She denies any localizing symptoms. She has no chest pain shortness of breath. She denies any urinary symptoms. She actually feels well. No nausea vomiting. No abdominal pain. No pain complaints. The ROS documented in this emergency department record has been reviewed and confirmed by me. Those systems with pertinent positive or negative responses have been documented in the HPI. All other systems are other negative and/or noncontributory. PHYSICAL EXAM: General Impression: Alert and oriented x3, not in acute distress HEENT: Normocephalic atraumatic, extra-ocular movements intact, pupils equal and reactive to light bilaterally, mucous membranes moist. Cardiovascular: Heart regular rate and rhythm Chest: Able to complete full sentences, no retractions, no tachypnea Abdomen: abdomen soft, non-tender, non-distended, no organomegaly Musculoskeletal: Pulses present and equal in all extremities, no peripheral edema Motor: no focal deficits noted Neurological: CN II-XII grossly intact, no focal motor or sensory deficits noted Skin: Intact with no visualized rashes Psych: Normal affect and mood ED course: 64-year-old female presents emergency department of fevers. She was received the second dose of her Coronavirus vaccine on Saturday and developed fevers after. All signs upon arrival shows fever of 103, heart rate of 119, rest of vital signs within acceptable limits. Labs are unremarkable. Potassium is elevated however hemolyzed specimen. She is not having features hyperkalemia. CBC shows no leukocytosis. No increased neutrophil count. CRP is mildly elevated at 6.9. Urinalysis positive for urinary tract infection with white blood cell count of 63. Coronavirus is negative. Chest x-ray is nonacute. Patient reevaluated at bedside at 1050 found to be stable medical condition. She is advised to continue taking her Bactrim tomorrow. She received ceftriaxone intramuscularly. She is advised to follow-up with primary care physician. Patient's pyrexia is likely secondary to recent vaccination. EKG interpretation: Ventricular rate 108, sinus tachycardia,. Interval 154, QRS 62, QTc 450. No NH prolongation, no QTC prolongation, no ST or T-wave changes noted. EKG compared to 10/04/2018 showing no changes. Overall, this EKG is unremarkable - Related Data Home Medications Medication Instructions Recorded Confirmed Aspirin EC [Ecotrin Low Dose] 81 mg PO HS 06/04/15 07/06/20 Atorvastatin [Lipitor] 80 mg PO HS 06/04/15 07/06/20 Benazepril HCl [Lotensin] 20 mg PO DAILY 06/04/15 07/06/20 traMADol HCl [Ultram] 50 mg PO QID PRN 06/04/15 07/06/20 hydrOXYzine HCL [Atarax] 10 mg PO HS 06/28/17 07/06/20 Artificial Tears-Hypromellose 1 drops BOTH EYES DAILY PRN 07/11/18 07/06/20 [Artificial Tear Drops] Ergocalciferol [Vitamin D2 50,000 unit PO Q30D 07/11/18 07/06/20 (DRISDOL)] Hydrocortisone Cream 1 applic TOPICAL QID PRN 07/11/18 07/06/20 [Hydrocortisone 2.5% Cream] Ascorbic Acid [Vitamin C] 1,000 mg PO DAILY 03/21/20 07/06/20 Loratadine [Claritin] 10 mg PO DAILY 03/21/20 07/06/20 Multivit with Calcium,Iron,Min 1 tab PO DAILY 03/21/20 07/06/20 [Women's Multivitamin] Omeprazole [PriLOSEC] 40 mg PO HS 03/21/20 07/06/20 Oxybutynin Chloride [Ditropan XL] 10 mg PO BID 03/21/20 07/06/20 Pilocarpine HCl [Salagen] 5 mg PO DAILY 03/21/20 07/06/20 metFORMIN HCL [Glucophage] 500 mg PO DAILY 03/21/20 07/06/20 Nystatin 1 applic TOPICAL BID PRN 07/06/20 07/06/20 Pramipexole Di-HCl [Mirapex] 3 mg PO HS 07/06/20 07/06/20 Allergies Allergy/AdvReac Type Severity Reaction Status Date / Time No Known Allergies Allergy Verified 07/06/20 22:20 Review of Systems ROS Statement: Those systems with pertinent positive or pertinent negative responses have been documented in the HPI. ROS Other: All systems not noted in ROS Statement are negative. Past Medical History Past Medical History: Diabetes Mellitus, Hyperlipidemia, Hypertension, Osteoarthritis (OA), Renal Disease Additional Past Medical History / Comment(s): ADMITTED 07/12/18-07/14/18 FOR ANEMIA, HGB 6.7, URI AND UTI. WAS TRANSFUSED WITH 1 UNIT PRBC. HBG 9.8-07/14/18. 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 History of Any Multi-Drug Resistant Organisms: None Reported Past Surgical History: Orthopedic Surgery, Tonsillectomy, Tubal Ligation Additional Past Surgical History / Comment(s): bunionectomy left foot and a plate. COLONOSCOPY, EGD, total right knee 03/28/19 Past Anesthesia/Blood Transfusion Reactions: No Reported Reaction Past Psychological History: Anxiety, Depression Smoking Status: Never smoker Past Alcohol Use History: None Reported Past Drug Use History: None Reported - Past Family History Mother Family Medical History: Cancer Additional Family Medical History / Comment(s): breast cancer Brother(s) Family Medical History: Cancer Additional Family Medical History / Comment(s): kidney cancer Son(s) Family Medical History: Cancer Additional Family Medical History / Comment(s): lymphoma General Exam Limitations: no limitations Course Vital Signs 07/06/20 07/06/20 07/06/20 20:34 22:20 22:36 Temperature 103 F H 99.2 F Pulse Rate 119 H 105 H Respiratory 20 20 Rate Blood Pressure 146/74 125/78 O2 Sat by Pulse 97 95 Oximetry 07/06/20 23:09 Temperature 98.9 F Pulse Rate 94 Respiratory 20 Rate Blood Pressure 118/77 O2 Sat by Pulse 96 Oximetry Medical Decision Making - Lab Data Result diagrams: 07/06/20 22:35 07/06/20 21:07 Lab Results 07/06/20 07/06/20 07/06/20 Range/Units 21:07 21:07 21:07 WBC (3.8-10.6) k/uL RBC (3.80-5.40) m/uL Hgb (11.4-16.0) gm/dL Hct (34.0-46.0) % MCV (80.0-100.0) fL MCH (25.0-35.0) pg MCHC (31.0-37.0) g/dL RDW (11.5-15.5) % Plt Count (150-450) k/uL MPV Neutrophils % % Lymphocytes % % Monocytes % % Eosinophils % % Basophils % % Neutrophils # (1.3-7.7) k/uL Lymphocytes # (1.0-4.8) k/uL Monocytes # (0-1.0) k/uL Eosinophils # (0-0.7) k/uL Basophils # (0-0.2) k/uL Sodium 138 (137-145) mmol/L Potassium 6.0 H (3.5-5.1) mmol/L Chloride 103 (98-107) mmol/L Carbon Dioxide 25 (22-30) mmol/L Anion Gap 10 mmol/L BUN 23 H (7-17) mg/dL Creatinine 1.13 H (0.52-1.04) mg/dL Est GFR (CKD-EPI)AfAm 60 (>60 ml/min/1.73 sqM) Est GFR (CKD-EPI)NonAf 52 (>60 ml/min/1.73 sqM) Glucose 150 H (74-99) mg/dL Plasma Lactic Acid Oziel 1.4 (0.7-2.0) mmol/L Calcium 8.8 (8.4-10.2) mg/dL C-Reactive Protein 6.9 H (<1.0) mg/dL Urine Color Yellow Urine Appearance Clear (Clear) Urine pH 5.5 (5.0-8.0) Ur Specific Cros[place] 1.017 (1.001-1.035) Urine Protein Trace H (Negative) Urine Glucose (UA) Negative (Negative) Urine Ketones Negative (Negative) Urine Blood Trace H (Negative) Urine Nitrite Positive H (Negative) Urine Bilirubin Negative (Negative) Urine Urobilinogen <2.0 (<2.0) mg/dL Ur Leukocyte Esterase Large H (Negative) Urine RBC 3 (0-5) /hpf Urine WBC 63 H (0-5) /hpf Ur Squamous Epith Cells 2 (0-4) /hpf Urine Bacteria Many H (None) /hpf Hyaline Casts 1 (0-2) /lpf Urine Mucus Rare H (None) /hpf Coronavirus (PCR) (Not Detectd) 07/06/20 07/06/20 Range/Units 21:07 22:35 WBC 10.0 (3.8-10.6) k/uL RBC 3.79 L (3.80-5.40) m/uL Hgb 11.3 L (11.4-16.0) gm/dL Hct 34.9 (34.0-46.0) % MCV 92.1 (80.0-100.0) fL MCH 29.9 (25.0-35.0) pg MCHC 32.4 (31.0-37.0) g/dL RDW 13.3 (11.5-15.5) % Plt Count 327 (150-450) k/uL MPV 6.4 Neutrophils % 63 % Lymphocytes % 20 % Monocytes % 12 % Eosinophils % 0 % Basophils % 1 % Neutrophils # 6.3 (1.3-7.7) k/uL Lymphocytes # 2.0 (1.0-4.8) k/uL Monocytes # 1.2 H (0-1.0) k/uL Eosinophils # 0.0 (0-0.7) k/uL Basophils # 0.1 (0-0.2) k/uL Sodium (137-145) mmol/L Potassium (3.5-5.1) mmol/L Chloride (98-107) mmol/L Carbon Dioxide (22-30) mmol/L Anion Gap mmol/L BUN (7-17) mg/dL Creatinine (0.52-1.04) mg/dL Est GFR (CKD-EPI)AfAm (>60 ml/min/1.73 sqM) Est GFR (CKD-EPI)NonAf (>60 ml/min/1.73 sqM) Glucose (74-99) mg/dL Plasma Lactic Acid Oziel (0.7-2.0) mmol/L Calcium (8.4-10.2) mg/dL C-Reactive Protein (<1.0) mg/dL Urine Color Urine Appearance (Clear) Urine pH (5.0-8.0) Ur Specific Crosby (1.001-1.035) Urine Protein (Negative) Urine Glucose (UA) (Negative) Urine Ketones (Negative) Urine Blood (Negative) Urine Nitrite (Negative) Urine Bilirubin (Negative) Urine Urobilinogen (<2.0) mg/dL Ur Leukocyte Esterase (Negative) Urine RBC (0-5) /hpf Urine WBC (0-5) /hpf Ur Squamous Epith Cells (0-4) /hpf Urine Bacteria (None) /hpf Hyaline Casts (0-2) /lpf Urine Mucus (None) /hpf Coronavirus (PCR) Not Detected (Not Detectd) Disposition Clinical Impression: Fever Disposition: HOME SELF-CARE Condition: Fair Instructions (If sedation given, give patient instructions): Fever in Adults (ED) Is patient prescribed a controlled substance at d/c from ED?: No Referrals: Norberto Dumont MD [Primary Care Provider] - 1-2 days Time of Disposition: 22:52
[2020-07-06 21:32] LABS: Appearance,Urine Clear (Clear); Bacteria,Urine Many /hpf; Bilirubin,Urine Negative (Negative); Blood,Urine Trace (Negative); Color,Urine Yellow; Glucose,Urine (UA) Negative (Negative); Hyaline Casts,Urine 1 /lpf (0-2); Ketones,Urine Negative (Negative); Leukocyte Esterase,Urine Large (Negative); Mucus,Urine Rare /hpf; Nitrite,Urine Positive (Negative); PH, Urine 5.5 (5.0-8.0); Protein,Urine Trace (Negative); RBC,Urine 3 /hpf (0-5); Specific Gravity,Urine 1.017 (1.001-1.035); Squamous Epithelial Cell,Urine 2 /hpf (0-4); Urobilinogen,Urine <2.0 mg/dL (<2.0); WBC,Urine 63 /hpf (0-5)
[2020-07-06] MEDS ORDERED: cefTRIAXone IN SWFI 1,000 MG/10 ML SYRINGE IVP STA (21:40)
[2020-07-06 21:49] LABS: C Reactive Protein 6.9 mg/dL (<1.0); Calcium 8.8 mg/dL (8.4-10.2)
[2020-07-06] MEDS ORDERED: cefTRIAXone 1,000 MG VIAL (IM USE) IM STA (21:53)
[2020-07-06 22:59] LABS: Basophils # (A) 0.1 k/uL (0-0.2); Basophils % (A) 1 %; Eosinophils % (A) 0 %; HCT 34.9 % (34.0-46.0); HGB 11.3 gm/dL (11.4-16.0); Lymphocytes % (A) 20 %; MCH 29.9 pg (25.0-35.0); MCHC 32.4 g/dL (31.0-37.0); MCV 92.1 fL (80.0-100.0); Mean Platelet Volume 6.4; Monocytes # (A) 1.2 k/uL (0-1.0); Monocytes % (A) 12 %; Neutrophils # (A) 6.3 k/uL (1.3-7.7); Neutrophils % (A) 63 %; Platelet Count 327 k/uL (150-450); RBC 3.79 m/uL (3.80-5.40); RDW 13.3 % (11.5-15.5)
[2020-07-06 23:10] VITALS: BP 118/77; PULSE 94; TEMP 98.9
== END 2020-07-06 23:10 | disposition home or self-care (01) ==
LOC: EC 20:30
DX: R50.9 Fever, unspecified (principal); I10 Essential (primary) hypertension; E11.9 Type 2 diabetes mellitus without complications; E78.5 Hyperlipidemia, unspecified; M19.90 Unspecified osteoarthritis, unspecified site; F41.9 Anxiety disorder, unspecified; F32.9 Major depressive disorder, single episode, unspecified; Z20.822 Contact with and (suspected) exposure to COVID-19; Z79.84 Long term (current) use of oral hypoglycemic drugs; Z79.82 Long term (current) use of aspirin; Z79.899 Other long term (current) drug therapy
CPT/HCPCS: 36415; 93005; 80048; 83605; 85025; 86140; 81001; 87040; 87086; 87635; 71045; 99284; 96372; J0696

== ENCOUNTER → 2020-09-14 | Outpatient (CLI) | payer OTHER ==
--- NOTE | 2020-09-14 20:00 | SFUN ---
SLEEP CENTER FOLLOW UP NOTE DATE OF SERVICE: 08/18/2020 HISTORY OF PRESENT ILLNESS: This is a 65-year-old lady has been followed in Sleep Center for treatment of obstructive sleep apnea-hypopnea syndrome. The patient had a polysomnogram which showed mild obstructive sleep apnea-hypopnea syndrome with symptoms of significant excessive daytime sleepiness. Subsequently, patient was started on treatment with CPAP. Today is his first visit on treatment. She does have little bit of problems with usage of CPAP because he is using a full-face mask and does not feel very comfortable with that, asking possibly how she would do with a different mask. She is also taking Paxil for leg movements at night. She feels a little better with that but still has a little bit of leg movements. She continued to feel some sleepiness, but a little bit better than before. [place] Sleepiness Scale today is 13. I checked her CPAP unit. Range of the pressure 5-12, usage 30/30 nights and 28/30 nights for more than 4 hours. Average usage 4.7 hours per night, decreased 12 L/minute which is borderline. Apnea-hypopnea index is only 0.7, which is perfect. CURRENT MEDICATIONS: Metformin, omeprazole, Loratadine, benazepril, tramadol, atorvastatin, primary Paxil, hydroxyzine. PHYSICAL EXAMINATION: GENERAL: lady without distress. VITAL SIGNS: BP 127/74, HR 97, R 18, weight 206.4, temperature 97.9, oxygen saturation from 98%. HEENT: PERRLA, EOMI. Oropharynx extremely low position of soft palate. LUNGS: Clear to percussion and to auscultation. Good air exchange. No wheezing or rhonchi. HEART: S1, S2 regular. No murmurs, gallops or rubs. ABDOMEN: Slightly obese. EXTREMITIES: No clubbing or cyanosis. MEDICAL BILLING SERVICE: Awake, alert, and oriented X3. Cranial nerves 2 to 7 intact. There is no fasciculation or atrophy. noted. No focal deficits observed. IMPRESSION: 1. Mild obstructive sleep apnea-hypopnea syndrome. Patient demonstrated good compliance with treatment benefitting from treatment. Has some problems related to a full-face mask. 2. Severe periodic limb movements by results of polysomnogram, periodic limb movements index 86.7 with 6.2 microarousals per hour. 3. Patient continues to feel some sleepiness. [place] Sleepiness Scale today is 13 4. 4. Obesity. 5. History of diabetes mellitus. 6. Hypertension. 7. Hyperlipidemia. 8. History of depression. 9. Knee arthritis. 10. problems. 11.Status post tonsillectomy. 12.Status post tubal ligation. PLAN: 1. We fitted the patient with nasal pillow mask and gave sample of nasal pillow mask. 2. Patient will continue to use PAP equipment every night for the whole night. 3. Sleep hygiene with regular time in bed for at least 7-1/2 to 8 hours. 4. Precautions related to driving. No driving if feeling sleepiness. 5. I will maintain all necessary prescription for PAP supplies including mask, tube, filters. 6. Watching weight. 7. Follow-up visit in 6 months or earlier if patient has any problems. 8. The patient will continue Paxil 0.125 mg 2 tablets at bedtime. Thank you very much for allowing me to participate in management of patient's care. Vince Gonzales MD, PhD, FAASM Diplomat of [place] [employer] [place] [employer] Financial Planning Consultant of [facility] [place] MMODL / IJN: [id number] /
== END ==
LOC: SLEEP 09:36
PROVIDERS: ATTEND Internal Medicine
DX: G47.33 Obstructive sleep apnea (adult) (pediatric) (principal); G47.61 Periodic limb movement disorder; E66.9 Obesity, unspecified; E11.9 Type 2 diabetes mellitus without complications; I10 Essential (primary) hypertension; E78.5 Hyperlipidemia, unspecified; F41.9 Anxiety disorder, unspecified; Z98.51 Tubal ligation status; Z90.09 Acquired absence of other part of head and neck; M17.10 Unilateral primary osteoarthritis, unspecified knee; Z79.84 Long term (current) use of oral hypoglycemic drugs; Z79.899 Other long term (current) drug therapy; Z99.81 Dependence on supplemental oxygen

== ENCOUNTER 2020-11-07 10:28 | Inpatient (IN) | payer OTHER ==
[2020-11-07] MEDS ORDERED: HYDROmorphone 0.5 MG/0.5 ML SYRINGE IVP STA (10:48)
[2020-11-07] MEDS ORDERED: ONDANSETRON 4 MG/2 ML VIAL IVP STA (10:48)
[2020-11-07] MEDS ORDERED: DIPH,PERTUS(ACELL)TETVAC-LF 0.5 ML VIAL IM ONE (11:01)
--- NOTE | 2020-11-07 11:02 | ED ---
General Adult HPI - General Stated complaint: Fall, hip injury Time Seen by Provider: 11/07/20 10:33 Source: patient, EMS, RN notes reviewed Mode of arrival: EMS Limitations: physical limitation - History of Present Illness Initial comments: This a 65-year-old female presents emergency Department chief complaint of a fall. Patient states she was stepping down off the curb states that she fell onto her right hip. Patient should complaints or right hip pain. She does admit that she had right knee surgery earlier this year by Dr. Mckeon. Denies any head injury no loss conscious. Patient states the pain is currently 8 out of 10 when not given any pain meds by EMS prior arrival. No chest pain or shortness of breath no other complaints. - Related Data Home Medications Medication Instructions Recorded Confirmed Aspirin EC [Ecotrin Low Dose] 81 mg PO HS 06/04/15 11/07/20 Atorvastatin [Lipitor] 80 mg PO HS 06/04/15 11/07/20 Benazepril HCl [Lotensin] 20 mg PO HS 06/04/15 11/07/20 traMADol HCl [Ultram] 50 mg PO QID PRN 06/04/15 11/07/20 hydrOXYzine HCL [Atarax] 10 mg PO HS 06/28/17 11/07/20 Artificial Tears-Hypromellose 1 drops BOTH EYES TID PRN 07/11/18 11/07/20 [Artificial Tear Drops] Ergocalciferol [Vitamin D2 50,000 unit PO Q30D 07/11/18 11/07/20 (DRISDOL)] Hydrocortisone Cream 1 applic TOPICAL QID PRN 07/11/18 11/07/20 [Hydrocortisone 2.5% Cream] Loratadine [Claritin] 10 mg PO DAILY 03/21/20 11/07/20 Omeprazole [PriLOSEC] 40 mg PO HS 03/21/20 11/07/20 Oxybutynin Chloride [Ditropan XL] 10 mg PO BID 03/21/20 11/07/20 Pilocarpine HCl [Salagen] 5 mg PO BID 03/21/20 11/07/20 metFORMIN HCL [Glucophage] 500 mg PO DAILY 03/21/20 11/07/20 Nystatin 1 applic TOPICAL BID PRN 07/06/20 11/07/20 Pramipexole Di-HCl [Mirapex] 3 mg PO HS 07/06/20 11/07/20 Allergies Allergy/AdvReac Type Severity Reaction Status Date / Time No Known Allergies Allergy Verified 07/06/20 22:20 Review of Systems ROS Statement: Those systems with pertinent positive or pertinent negative responses have been documented in the HPI. ROS Other: All systems not noted in ROS Statement are negative. Past Medical History Past Medical History: Diabetes Mellitus, Hyperlipidemia, Hypertension, Osteoarthritis (OA), Renal Disease Additional Past Medical History / Comment(s): ADMITTED 07/12/18-07/14/18 FOR ANEMIA, HGB 6.7, URI AND UTI. WAS TRANSFUSED WITH 1 UNIT PRBC. HBG 9.8-07/14/18. 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 History of Any Multi-Drug Resistant Organisms: None Reported Past Surgical History: Orthopedic Surgery, Tonsillectomy, Tubal Ligation Additional Past Surgical History / Comment(s): bunionectomy left foot and a plate. COLONOSCOPY, EGD, total right knee 03/28/19 Past Anesthesia/Blood Transfusion Reactions: No Reported Reaction Past Psychological History: Anxiety, Depression Smoking Status: Never smoker Past Alcohol Use History: None Reported Past Drug Use History: None Reported - Past Family History Mother Family Medical History: Cancer Additional Family Medical History / Comment(s): breast cancer Brother(s) Family Medical History: Cancer Additional Family Medical History / Comment(s): kidney cancer Son(s) Family Medical History: Cancer Additional Family Medical History / Comment(s): lymphoma General Exam General appearance: alert, in no apparent distress Head exam: Present: atraumatic, normocephalic, normal inspection Eye exam: Present: normal appearance, PERRL, EOMI. Absent: scleral icterus, conjunctival injection, periorbital swelling ENT exam: Present: normal exam, normal oropharynx, mucous membranes moist Neck exam: Present: normal inspection, full ROM. Absent: tenderness, meningismus, lymphadenopathy Respiratory exam: Present: normal lung sounds bilaterally. Absent: respiratory distress, wheezes, rales, rhonchi, stridor Cardiovascular Exam: Present: regular rate, normal rhythm, normal heart sounds. Absent: systolic murmur, diastolic murmur, rubs, gallop, clicks Extremities exam: Present: other (Right hip is externally rotated, shortened, tenderness palpation, abrasion noted to the right elbow) Neurological exam: Present: alert, oriented X3. Absent: motor sensory deficit Skin exam: Present: warm, dry, intact, normal color. Absent: rash Course Vital Signs 11/07/20 10:58 Temperature 98.8 F Pulse Rate 101 H Respiratory 18 Rate Blood Pressure 136/62 O2 Sat by Pulse 98 Oximetry Medical Decision Making - Medical Decision Making X ray shows evidence of right small neck fracture. Patient be admitted case discussed with karlo Fontenot on-call for Dr. Esquivel. - Lab Data Result diagrams: 11/07/20 11:19 11/07/20 11:19 Lab Results 11/07/20 11/07/20 11/07/20 Range/Units 11:19 11:19 11:19 WBC 13.5 H (3.8-10.6) k/uL RBC 4.00 (3.80-5.40) m/uL Hgb 12.5 (11.4-16.0) gm/dL Hct 38.8 (34.0-46.0) % MCV 97.1 (80.0-100.0) fL MCH 31.4 (25.0-35.0) pg MCHC 32.3 (31.0-37.0) g/dL RDW 13.0 (11.5-15.5) % Plt Count 418 (150-450) k/uL MPV 6.9 Neutrophils % 80 % Lymphocytes % 12 % Monocytes % 5 % Eosinophils % 1 % Basophils % 1 % Neutrophils # 10.8 H (1.3-7.7) k/uL Lymphocytes # 1.6 (1.0-4.8) k/uL Monocytes # 0.7 (0-1.0) k/uL Eosinophils # 0.2 (0-0.7) k/uL Basophils # 0.1 (0-0.2) k/uL PT 10.1 (9.0-12.0) sec INR 0.9 (<1.2) APTT 21.7 L (22.0-30.0) sec Sodium 138 (137-145) mmol/L Potassium 4.2 (3.5-5.1) mmol/L Chloride 107 (98-107) mmol/L Carbon Dioxide 23 (22-30) mmol/L Anion Gap 8 mmol/L BUN 20 H (7-17) mg/dL Creatinine 0.91 (0.52-1.04) mg/dL Est GFR (CKD-EPI)AfAm 78 (>60 ml/min/1.73 sqM) Est GFR (CKD-EPI)NonAf 67 (>60 ml/min/1.73 sqM) Glucose 140 H (74-99) mg/dL Calcium 9.4 (8.4-10.2) mg/dL Total Bilirubin 0.4 (0.2-1.3) mg/dL AST 24 (14-36) U/L ALT 17 (4-34) U/L Alkaline Phosphatase 80 (38-126) U/L Total Protein 6.8 (6.3-8.2) g/dL Albumin 4.0 (3.5-5.0) g/dL Disposition Clinical Impression: Fall, Fracture of femoral neck, right, closed Disposition: ADMITTED IP TO THIS HOSP Condition: Fair Referrals: Norberto Dumont MD [Primary Care Provider] - 1-2 days
[2020-11-07 11:27] LABS: Basophils # (A) 0.1 k/uL (0-0.2); Basophils % (A) 1 %; Eosinophils # (A) 0.2 k/uL (0-0.7); Eosinophils % (A) 1 %; HCT 38.8 % (34.0-46.0); HGB 12.5 gm/dL (11.4-16.0); Lymphocytes # (A) 1.6 k/uL (1.0-4.8); Lymphocytes % (A) 12 %; MCH 31.4 pg (25.0-35.0); MCHC 32.3 g/dL (31.0-37.0); MCV 97.1 fL (80.0-100.0); Mean Platelet Volume 6.9; Monocytes # (A) 0.7 k/uL (0-1.0); Monocytes % (A) 5 %; Neutrophils # (A) 10.8 k/uL (1.3-7.7); Neutrophils % (A) 80 %; Platelet Count 418 k/uL (150-450); WBC 13.5 k/uL (3.8-10.6)
[2020-11-07 11:45] LABS: Calcium 9.4 mg/dL (8.4-10.2); Potassium 4.2 mmol/L (3.5-5.1); Total Bilirubin 0.4 mg/dL (0.2-1.3); Total Protein 6.8 g/dL (6.3-8.2)
[2020-11-07 12:13] LABS: INR 0.9 (<1.2); Prothrombin Time 10.1 sec (9.0-12.0)
--- NOTE | 2020-11-07 12:42 | XR ---
EXAMINATION TYPE AP view pelvis and 2 views right hip DATE OF EXAM: 11/07/2020 COMPARISON: NONE HISTORY: 65-year-old female with fall and pain FINDINGS: Both hips are externally rotated limiting visualization the femoral necks. There is an angulated frac ture of the right femoral neck demonstrated. Degenerative change lower lumbar spine. SI joints appear symmetric and intact as does the pubic symph ysis. IMPRESSION: Angulated right femoral neck fracture. Both hips are externally rotated limiting the degree of visual ization of both femoral necks.
[2020-11-07 12:57] LABS: Partial Thromboplastin Time 21.7 sec (22.0-30.0)
[2020-11-07] MEDS ORDERED: NALOXONE 0.4 MG/ML 1 ML VIAL IV PRN (13:22)
--- NOTE | 2020-11-07 15:04 | P.HPOR ---
History of Present Illness H&P Date: 11/07/20 Chief Complaint: right hip pain Patient is 65 y/o female presenting to the emergency department with right hip pain status post fall off a curb. Patient says she landed right on her hip and is not complaining of injury/pain anywhere else. Patient says her hip pain is mostly in the right side of the hip with some radiation down the thigh. Patient denies loss of consciousness/head injury. Patient says she had previous knee had a right total knee arthroplasty earlier this year by Dr. Mckeon. Patient says she does not take any blood thinners. Patient denies chest pain, fever, shortness breath, nausea, vomiting, change in vision, loss of bowel/bladder control. Past Medical History Past Medical History: Diabetes Mellitus, Hyperlipidemia, Hypertension, Osteoarthritis (OA), Renal Disease Additional Past Medical History / Comment(s): ADMITTED 07/12/18-07/14/18 FOR ANEMIA, HGB 6.7, URI AND UTI. WAS TRANSFUSED WITH 1 UNIT PRBC. HBG 9.8-07/14/18. 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 History of Any Multi-Drug Resistant Organisms: None Reported Past Surgical History: Orthopedic Surgery, Tonsillectomy, Tubal Ligation Additional Past Surgical History / Comment(s): bunionectomy left foot and a plate. COLONOSCOPY, EGD, total right knee 03/28/19 Past Anesthesia/Blood Transfusion Reactions: No Reported Reaction Past Psychological History: Anxiety, Depression Smoking Status: Never smoker Past Alcohol Use History: None Reported Past Drug Use History: None Reported - Past Family History Mother Family Medical History: Cancer Additional Family Medical History / Comment(s): breast cancer Brother(s) Family Medical History: Cancer Additional Family Medical History / Comment(s): kidney cancer Son(s) Family Medical History: Cancer Additional Family Medical History / Comment(s): lymphoma Medications and Allergies Home Medications Medication Instructions Recorded Confirmed Type Aspirin EC [Ecotrin Low Dose] 81 mg PO HS 06/04/15 11/07/20 History Atorvastatin [Lipitor] 80 mg PO HS 06/04/15 11/07/20 History Benazepril HCl [Lotensin] 20 mg PO HS 06/04/15 11/07/20 History traMADol HCl [Ultram] 50 mg PO QID PRN 06/04/15 11/07/20 History hydrOXYzine HCL [Atarax] 10 mg PO HS 06/28/17 11/07/20 History Artificial Tears-Hypromellose 1 drops BOTH EYES TID PRN 07/11/18 11/07/20 History [Artificial Tear Drops] Ergocalciferol [Vitamin D2 50,000 unit PO Q30D 07/11/18 11/07/20 History (DRISDOL)] Hydrocortisone Cream 1 applic TOPICAL QID PRN 07/11/18 11/07/20 History [Hydrocortisone 2.5% Cream] Loratadine [Claritin] 10 mg PO DAILY 03/21/20 11/07/20 History Omeprazole [PriLOSEC] 40 mg PO HS 03/21/20 11/07/20 History Oxybutynin Chloride [Ditropan XL] 10 mg PO BID 03/21/20 11/07/20 History Pilocarpine HCl [Salagen] 5 mg PO BID 03/21/20 11/07/20 History metFORMIN HCL [Glucophage] 500 mg PO DAILY 03/21/20 11/07/20 History Nystatin 1 applic TOPICAL BID PRN 07/06/20 11/07/20 History Pramipexole Di-HCl [Mirapex] 3 mg PO HS 07/06/20 11/07/20 History Allergies Allergy/AdvReac Type Severity Reaction Status Date / Time No Known Allergies Allergy Verified 07/06/20 22:20 Physical Examination Inspection: Shortening and external rotation of right leg. Minimal ecchymosis along the lateral upper one third of the right femur. No evidence of open fractures. Negative for any significant discoloration other than as noted. N egative for nodules, erythema. Sensation: Sensation is intact in bilateral upper extremities symmetric, equal in distribution. Sensation is intact in bilateral lower extremities symmetric, equal in distribution Palpation: Significant tenderness to palpation over the proximal right femur along the head of the femur. Nontender to palpation throughout rest of exam Range of motion: Limited range of motion in the right leg due to patient being in significant pain. Decreased hip flexion in right leg. Pain with internal and external rotation right hip. Bilateral upper extremities full range of motion in elbow extension/flexion as well as shoulder internal and external rotation abduction and forward elevation. Left lower extremity full range of motion and knee flexion extension and hip flexion extension. Plantar and dorsiflexion full range of motion bilaterally Motor: Strength 5 out of 5 in upper extremities as well as pullman clerk strength. Left lower extremity 5/5 in resisted flexion extension and hip flexion extension. Right leg exam limited due to patient being in significant amount of pain Neurovascular status/tensioning signs: Refill under 3 seconds bilaterally in lower and upper extremities. Skin mildly warm to touch in hands bilaterally as well as bilaterally in the lower extremities. Dorsalis pedis pulses intact, 2+ bilaterally. Radial pulses intact, 2+ bilaterally. Negative Homans bilaterally. Negative Arline's bilaterally. Negative clonus upon dorsiflexing feet bilaterally. Results - Labs Labs: Abnormal Lab Results - Last 24 Hours (Table) 11/07/20 11/07/20 11/07/20 Range/Units 11:19 11:19 11:19 WBC 13.5 H (3.8-10.6) k/uL Neutrophils # 10.8 H (1.3-7.7) k/uL APTT 21.7 L (22.0-30.0) sec BUN 20 H (7-17) mg/dL Glucose 140 H (74-99) mg/dL H & H 11/07/20 Range/Units 11:19 Hgb 12.5 (11.4-16.0) gm/dL Hct 38.8 (34.0-46.0) % Coagulation 11/07/20 Range/Units 11:19 INR 0.9 (<1.2) Result Diagrams: 11/07/20 11:19 11/07/20 11:19 Assessment and Plan Assessment: Right hip femoral neck fracture status post fall Plan: 1. Right hip femoral neck fracture status post fall - xray right hip reviewed. xray right femur ordered. patient made nothing by mouth after midnight tonight. Surgery planned for tomorrow for right total hip arthroplasty - lateral approach by Dr. Reddy 2. Appreciate medical management - Needs surgical clearance 3. Pain management - stable at this time. IV and oral pain meds 4. GI prophylaxis 5. PT/OT - nonweightbearing right leg Time with Patient: Less than 30
[2020-11-07] MEDS: HYDROmorphone 0.5 MG/0.5 ML SYRINGE IVP PRN ×3 (15:17→22:18)
--- NOTE | 2020-11-07 15:21 | XR ---
EXAMINATION TYPE: XR chest 1V DATE OF EXAM: 11/07/2020 COMPARISON: 07/06/2020 HISTORY: 65-year-old female presurgical evaluation TECHNIQUE: Single frontal view of the chest is obtained. FINDINGS: Heart upper limits of normal in size. Mild interstitial prominence may in part be technical. No conso lidation or pleural effusion. IMPRESSION: Borderline heart size. Interstitial prominence may be technical. Correlate for possible bronchitis or asthma. Otherwise, no acute process seen.
[2020-11-07 15:41] LABS: Appearance,Urine Clear (Clear); Bilirubin,Urine Negative (Negative); Blood,Urine Negative (Negative); Color,Urine Yellow; Glucose,Urine (UA) Negative (Negative); Ketones,Urine Negative (Negative); Leukocyte Esterase,Urine Negative (Negative); Nitrite,Urine Negative (Negative); PH, Urine 5.5 (5.0-8.0); Protein,Urine Negative (Negative); Specific Gravity,Urine 1.017 (1.001-1.035); Urobilinogen,Urine <2.0 mg/dL (<2.0)
--- NOTE | 2020-11-07 15:49 | XR ---
EXAMINATION TYPE: XR femur RT DATE OF EXAM: 11/07/2020 CLINICAL HISTORY: 11/07/2020 TECHNIQUE: Two views of the right femur are obtained. COMPARISON: None FINDINGS: There is angulated right femoral neck fracture with displacement. Postsurgical change invo lving the knee. IMPRESSION: 1. Displaced right femoral neck fracture.
[2020-11-08] MEDS: HYDROmorphone 0.5 MG/0.5 ML SYRINGE IVP PRN ×4 (02:33→17:00)
[2020-11-08 09:45] LABS: Glucose,Whole Blood 107 mg/dL (75-99)
[2020-11-08 11:44] LABS: Glucose,Whole Blood 110 mg/dL (75-99)
--- NOTE | 2020-11-08 12:46 | P.PN ---
Progress Note - Text Progress Note Date: 11/08/20 Diagnoses: Displaced right subcapital femur fracture Plan: Discussed with patient and family today at bedside plan for surgery, this to include a right total hip arthroplasty lateral approach later this afternoon. Patient is in good understanding and ready to proceed. Patient did state her PCP was in early this morning to see her. Further recommendations to follow
[2020-11-08] MEDS ORDERED: IV FLUID CONTINUATION 450 ML IV ONE (13:16)
[2020-11-08 13:27] LABS: Glucose,Whole Blood 103 mg/dL (75-99)
[2020-11-08] MEDS ORDERED: fentaNYL (PF) 50 MCG/ML 2 ML AMP ONE (14:03)
[2020-11-08] MEDS ORDERED: LIDOCAINE 1% INJ 10MG/ML (20 ML MDV) ONE (14:03)
[2020-11-08] MEDS ORDERED: PROPOFOL 10 MG/ML 20 ML VIAL IV ONE (14:03)
[2020-11-08] MEDS ORDERED: SODIUM CHLORIDE 0.9% 100 ML BAG ONE (14:03)
[2020-11-08] MEDS ORDERED: MIDAZOLAM 2 MG/2 ML VIAL ONE (14:03)
[2020-11-08] MEDS ORDERED: TRANEXAMIC ACID 1,000 MG/10 ML VIAL ONE (14:03)
[2020-11-08] MEDS ORDERED: SODIUM CHLORIDE 0.9% 100 ML with ceFAZolin 2,000 MG IV ONE ×2 (14:25)
[2020-11-08] MEDS ORDERED: SODIUM CHLORIDE 0.9% 500 ML 500 ML IV ONE (14:25)
[2020-11-08] MEDS ORDERED: ceFAZolin 3,000 MG in SODIUM CHLORIDE 0.9% IRRIGATIO 3,000 ML IRRIGATION ONE (14:48)
[2020-11-08] MEDS ORDERED: LACTATED RINGERS 1,000 ML IV ONE (15:36)
[2020-11-08] MEDS ORDERED: TRANEXAMIC ACID 1,000 MG in SODIUM CHLORIDE 0.9% 100 ML IVPB ONE (16:00)
[2020-11-08] MEDS ORDERED: MAGNESIUM HYDROXIDE 2,400 MG/10 ML CUP PO PRN (16:26)
[2020-11-08] MEDS ORDERED: ACETAMINOPHEN TAB 325 MG TAB PO PRN (16:26)
[2020-11-08] MEDS ORDERED: HYDROcodone/APAP 5-325MG 1 EACH TAB PO PRN (16:26)
[2020-11-08] MEDS ORDERED: NALOXONE 0.4 MG/ML 1 ML VIAL IV PRN (16:26)
--- NOTE | 2020-11-08 16:34 | P.OP ---
Date of Procedure: 11/08/20 Preoperative Diagnosis: Displaced right subcapital femoral neck fracture Postoperative Diagnosis: Same Procedure(s) Performed: Right total hip arthroplastypress-fitlateral approach Implants: Depuy Corail size 10 collared [id number] offset, 32+1 cobalt chrome femoral head, 50 mm [place] acetabular shell with +4 neutral polyethylene liner. Anesthesia: spinal Surgeon: Brannon Reddy Rock Mason #1: Rc Fuentes Estimated Blood Loss (ml): 900 Pathology: other (Femoral head) Condition: stable Disposition: PACU Indications for Procedure: The patient's a 65-year-old female who presents after falling at home injuring her right hip. Upon evaluation she was noted have a significantly displaced right subcapital femoral neck fracture. A discussion of the risks and benefits of operative intervention was made with patient. Operative options were also discussed. She opted to proceed with surgery. Operative risks to include infection, neurovascular injury, development of blood clots, possible leg length discrepancy, possible instability, possible component loosening/failure need for subsequent procedures was discussed. Informed consent was obtained. Operative Findings: As below Description of Procedure: The patient was brought to the operating room, and after induction of spinal anesthesia was placed in a lateral decubitus position. The bony prominences were appropriately padded. The pelvis was stable perpendicular to the floor with a pegboard. The right lower extremity was prepped and draped in normal fashion. A 12 cm incision was then made centered over the greater trochanter extending superiorly to level the ASIS and distally in line with the femoral shaft. The skin and subcutaneous tissues were divided sharply. Electrocautery was used for hemostasis. The fascia albertina and gluteus dolores fascia was split in line with the skin incision. The muscle fibers were bluntly dissected proximally. A self-retaining retractor was placed. The anterior and posterior margins of the gluteus medius muscles identified and the anterior two thirds was detached from the greater trochanter with electrocautery. The gluteus minimus tendon was identified and detached in a similar fashion. A wide capsulotomy was performed. The femoral neck fracture was identified in the lower neck cut was made approximately 1 1/2 cm above the level of the lesser trochanter with a sagittal saw at a 45 the shaft. The head was then extracted with a corkscrew. Attention was then paid towards preparing the acetabular. Anterior and posterior retractors were placed. The remaining capsular labral tissues debrided sharply clearly defining the acetabular margins. Began reaming with a 43 mm reamer taking care to initially medialize, then reaming at 45 of abduction and 20 of anteversion. Sequential reaming is performed up to 49 mm. This was down to bleeding bony surface. A trial 50 mm acetabular shell was inserted at 45 of abduction and 20 of anteversion. This was fully seated. There was good rim fit and stability. I did place a posterior superior cancellus screw with good purchase. This was 6.5 mm x 25 mm. A +4 neutral polyethylene liner was then impacted. Care taken to avoid any soft tissue interposition. Attention was then paid towards preparing the proximal femur. A box chisel was used to open the metaphyseal region. A canal finder was used to find the femoral canal. Sequential broaching was performed up to a size 10. This is placed in 15 of anteversion with the leg perpendicular floor judging off the trans-epicondylar axis. There is good rotational stability. A calcar mill was used to fashion the medial calcar. A trial 135 high offset neck along with a 32 mm + 1 trial head was placed. The hip was gently reduced. It was taken through range of motion. I felt to be stable in flexion and extension with internal and external rotation. I felt there was adequate yazdanism of soft tissue tension. The hip was gently dislocated. The trial components removed. Pulsatile lavage was utilized. The final size 10 135/high offset collared femoral stem was inserted again with the leg perpendicular to the floor in 15 of anteversion. Again there was good rotational stability. A 32 mm + 1 cobalt chrome femoral head was gently impacted. The hip was gently reduced. Again it was taken through motion and felt to be stable in flexion and extension with internal and external rotation. Pulsatile lavage was again utilized. With the leg in abduction the gluteus minimus and medius tendons reattached to the greater trochanter with #2 Ethibond suture. There was minimal drainage therefore a deep drain was not placed. The fascia albertina and gluteus dolores fascia was closed with #2 Ethibond suture. The subcutaneous tissues were reapproximated interrupted 2-0 Vicryl sutures. The skin was reapproximated with 3-0 subcuticular strata fix suture. Skin tape and adhesive was applied. A sterile dressing was applied. The patient was awoken from sedation and transferred to recovery room in good condition. Blood loss was estimated 900 mL. No complications were incurred. Sponge and needle counts were correct in the case. Juaquin DRAKE assisted during the major composes case to include exposure, implantation, and closure.
--- NOTE | 2020-11-08 17:19 | XR ---
EXAMINATION TYPE: XR Hip Limited RT DATE OF EXAM: 11/08/2020 CLINICAL HISTORY: Postop right hip TECHNIQUE: AP and frogleg views of the right hip are obtained. COMPARISON: None. FINDINGS: Status post right hip total arthroplasty with anatomic alignment. There is no evidence of h ardware fracture. There is some lucency over the greater trochanter, with no cortical disruption or e vidence of displaced fracture. Subcutaneous gas as expected postoperatively. No unexpected radiopaque foreign body. IMPRESSION: Status post right hip total arthroplasty with anatomic alignment.
[2020-11-08] MEDS: ONDANSETRON 4 MG/2 ML VIAL IVP PRN (17:48)
[2020-11-08] MEDS: FERROUS SULFATE 325 MG TAB PO SCH (19:39)
[2020-11-08] MEDS: HYDROcodone/APAP 5-325MG 1 EACH TAB PO PRN (19:40)
[2020-11-08] MEDS: SENNOSIDES-DOCUSATE SODIUM 1 EACH TAB PO SCH (19:41)
[2020-11-08 20:40] LABS: Glucose,Whole Blood 245 mg/dL (75-99)
[2020-11-09] MEDS: HYDROmorphone 0.5 MG/0.5 ML SYRINGE IVP PRN ×4 (00:39→15:24)
[2020-11-09] MEDS: HYDROcodone/APAP 5-325MG 1 EACH TAB PO PRN ×3 (04:46→17:55)
[2020-11-09 06:43] LABS: Basophils % (A) 0 %; Eosinophils # (A) 0.1 k/uL (0-0.7); Eosinophils % (A) 1 %; HCT 34.4 % (34.0-46.0); HGB 11.2 gm/dL (11.4-16.0); Lymphocytes # (A) 1.9 k/uL (1.0-4.8); Lymphocytes % (A) 17 %; MCH 32.7 pg (25.0-35.0); MCHC 32.7 g/dL (31.0-37.0); MCV 99.9 fL (80.0-100.0); Mean Platelet Volume 7.3; Monocytes # (A) 0.6 k/uL (0-1.0); Monocytes % (A) 6 %; Neutrophils # (A) 8.4 k/uL (1.3-7.7); Neutrophils % (A) 75 %; Platelet Count 284 k/uL (150-450); RBC 3.44 m/uL (3.80-5.40); WBC 11.2 k/uL (3.8-10.6)
[2020-11-09 06:58] LABS: Glucose,Whole Blood 121 mg/dL (75-99)
[2020-11-09] MEDS: FERROUS SULFATE 325 MG TAB PO SCH ×2 (07:30→17:18)
[2020-11-09] MEDS: ENOXAPARIN 40 MG/0.4 ML SYRINGE SQ SCH (07:30)
[2020-11-09] MEDS: ONDANSETRON 4 MG/2 ML VIAL IVP PRN (09:46)
--- NOTE | 2020-11-09 10:27 | P.PN ---
Subjective Progress Note Date: 11/09/20 Principal diagnosis: Status post right total hip arthroplasty, lateral approach Patient was examined today at bedside, she is resting in her hospital chair. Patient states that she is feeling pretty well today. She did get a little nauseous when she was ambulating with therapy. She is utilizing a walker. She denies any chest pain or shortness of breath at this time. The urinary catheter is still present. Objective - Vital Signs Vital signs: Vital Signs Temp 97.6 F 11/09/20 07:48 Pulse 91 11/09/20 07:48 Resp 18 11/09/20 07:48 BP 117/70 11/09/20 07:48 Pulse Ox 100 11/09/20 07:48 Intake & Output 11/08/20 11/09/20 11/09/20 18:59 06:59 18:59 Intake Total 1451 50 Output Total 2100 600 Balance -649 -550 Intake: IV 1451 Intake, IV Titration 50 Amount ceFAZolin 2 gm In Sodium 50 Chloride 0.9% 50 ml @ 100 mls/hr IVPB Q8HR [facility] Rx# :[id number] Output: Urine 1300 600 Uretheral (Luna) 1100 Estimated Blood Loss 800 Other: Voiding Method Indwelling Catheter - Exam Right lower extremity: Incision is clean, dry, and intact. The exofin fusion tape is in good condition. There is minimal soft tissue swelling and ecchymosis surrounding the medial and lateral aspects of the incision. Calf is soft, no tenderness with palpation. Plantar flexion, dorsiflexion, EHL, FHL are intact. Sensory exam to light touch throughout the extremity is intact, dorsal pedis pulses 2+. - Labs CBC & Chem 7: 11/09/20 06:10 11/07/20 11:19 Labs: Abnormal Lab Results - Last 24 Hours (Table) 11/08/20 11/08/20 11/08/20 Range/Units 11:43 13:25 20:39 WBC (3.8-10.6) k/uL RBC (3.80-5.40) m/uL Hgb (11.4-16.0) gm/dL Neutrophils # (1.3-7.7) k/uL POC Glucose (mg/dL) 110 H 103 H 245 H (75-99) mg/dL 08/25/21 08/25/21 Range/Units 06:10 06:57 WBC 11.2 H (3.8-10.6) k/uL RBC 3.44 L (3.80-5.40) m/uL Hgb 11.2 L (11.4-16.0) gm/dL Neutrophils # 8.4 H (1.3-7.7) k/uL POC Glucose (mg/dL) 121 H (75-99) mg/dL Assessment and Plan Assessment: Status post right total hip arthroplasty, lateral approach Plan: Pain control, continue with current medication GI and DVT prophylaxis, continue current medication Daily dressing changes Encourage incentive spirometer Discontinue urinary catheter Medical recommendations Discharge planning: Planning for discharge to rehab in the next day or 2 Time with Patient: Less than 30
[2020-11-09 11:39] LABS: Glucose,Whole Blood 249 mg/dL (75-99)
--- NOTE | 2020-11-09 16:06 | CONS ---
CONSULTATION CHIEF COMPLAINT: Fall with fracture of the right hip. HISTORY OF PRESENT ILLNESS: This is another admission for this 65-year-old female who apparently slipped and fell and fractured her left hip. She has a history of diabetes mellitus, hypertension, and mild cognitive impairment. She is a compliant patient, however. Her diabetes is generally in good control. REVIEW OF SYSTEMS: She denies any neurologic problems, change in vision or hearing, chest pain, shortness of breath, cough, hemoptysis, orthopnea, PND, abdominal pain, nausea, vomiting, melena, hematochezia, jaundice, renal failure, frequency, urgency, hematuria, dysuria, incontinence, etc. Past medical history, family history and personal and social histories are all otherwise unremarkable and noncontributory. She is on benazepril 20 mg once a day, loratadine 10 mg once a day, tramadol 50 mg q.h.s. p.r.n., oxybutynin 10 mg twice a day, atorvastatin 80 mg q.h.s. omeprazole 40 mg once a day, pramipexole 1.5 mg 2 at night, metformin 500 mg once a day, pilocarpine eye drops, aspirin and she uses a CPAP. PHYSICAL EXAMINATION: Blood pressure is 141/80 with a pulse of 86, respirations of 28, and she is afebrile. In GENERAL, she appeared to be slightly overweight and she was fairly comfortable. SKIN color is normal skin is warm, dry. Lymph nodes are not enlarged. HEAD, ears, eyes, nose, mouth and throat were normal. NECK veins not distended. Thyroid was not enlarged. CHEST is clear. CARDIAC exam is normal. ABDOMEN is soft and nontender and EXTREMITIES normal except for the right hip. NEUROLOGICALLY she was intact. IMPRESSION: She has been admitted to the hospital with diagnoses: 1. Right hip fracture. 2. History of type 2 diabetes mellitus. 3. History of hypertension. 4. Mild cognitive debility. PLAN: Proceed with ORIF for the right hip. She presents with reasonable risk and she was cleared. Thank you respectfully. ROB / DONNY: [id number] /
[2020-11-09 16:52] LABS: Glucose,Whole Blood 177 mg/dL (75-99)
[2020-11-09 20:34] LABS: Glucose,Whole Blood 211 mg/dL (75-99)
[2020-11-09] MEDS: SENNOSIDES-DOCUSATE SODIUM 1 EACH TAB PO SCH (20:46)
[2020-11-09] MEDS: OXYBUTYNIN 10 MG TAB.ER.24 PO SCH (20:46)
[2020-11-09] MEDS: PILOCARPINE 5 MG TAB PO SCH (20:46)
--- NOTE | 2020-11-09 20:55 | PN ---
PROGRESS NOTE DATE OF SERVICE: 11/08/2020 CHIEF COMPLAINT: Fracture of the right hip. HISTORY OF PRESENT ILLNESS: This lady is doing well. She has had no fever or chills. PHYSICAL EXAMINATION: Her chest is clear. Cardiac exam is normal. Abdomen is soft, nontender. IMPRESSION: Fracture of the right hip. PLAN: Continue with orthopedics plan and follow postoperatively. MMODL / IJN: [id number] /
[2020-11-09] MEDS ORDERED: PRAMIPEXOLE 1 MG TAB PO SCH (21:00)
[2020-11-09] MEDS ORDERED: lisinopriL 20 MG TAB PO SCH (21:00)
[2020-11-09] MEDS ORDERED: ASPIRIN 81 MG PO SCH (21:00)
[2020-11-09] MEDS ORDERED: PANTOPRAZOLE 40 MG TABLET PO SCH (21:00)
--- NOTE | 2020-11-09 21:17 | PN ---
PROGRESS NOTE DATE OF SERVICE: 11/09/2020. CHIEF COMPLAINT: Fracture of the right hip. HISTORY OF PRESENT ILLNESS: This lady is doing well. Pain is under good control and she has had no nausea, fever and chills, etc. PHYSICAL EXAMINATION: Chest is clear. Cardiac exam is normal and the abdomen is soft, nontender. Extremities are normal. Luna catheter is in place. IMPRESSION: 1. Status post ORIF of the right hip. 2. History of hypertension. 3. Diabetes. PLAN: Progress activity and diet and it sounds as though she will be going home after she leaves the hospital. MMODL / IJN: [id number] /
[2020-11-10] MEDS: HYDROcodone/APAP 5-325MG 1 EACH TAB PO PRN ×2 (06:56→13:35)
[2020-11-10] MEDS: ENOXAPARIN 40 MG/0.4 ML SYRINGE SQ SCH (06:57)
[2020-11-10] MEDS: FERROUS SULFATE 325 MG TAB PO SCH (06:57)
[2020-11-10] MEDS: PILOCARPINE 5 MG TAB PO SCH (06:57)
[2020-11-10] MEDS: OXYBUTYNIN 10 MG TAB.ER.24 PO SCH (06:58)
[2020-11-10 07:02] LABS: Glucose,Whole Blood 148 mg/dL (75-99)
[2020-11-10 08:15] VITALS: RESP 16
[2020-11-10] MEDS: ONDANSETRON 4 MG/2 ML VIAL IVP PRN (08:33)
--- NOTE | 2020-11-10 10:25 | P.PN ---
Subjective Progress Note Date: 11/10/20 Principal diagnosis: Status post right total hip arthroplasty, lateral approach Patient was examined today at bedside, she is resting in her hospital chair. Patient states that she is feeling pretty well today. She is utilizing a walker. She denies any chest pain or shortness of breath at this time. Objective - Vital Signs Vital signs: Vital Signs Temp 98.3 F 11/10/20 08:00 Pulse 98 11/10/20 08:00 Resp 16 11/10/20 08:00 BP 92/60 11/10/20 08:00 Pulse Ox 100 11/10/20 08:00 Intake & Output 11/09/20 11/10/20 11/10/20 18:59 06:59 18:59 Intake Total 900 400 236 Output Total 220 Balance 680 400 236 Intake: IV 100 ceFAZolin 2 gm In Sodium 100 Chloride 0.9% 50 ml @ 100 mls/hr IVPB Q8HR [facility] Rx# :[id number] Oral 800 400 236 Output: Urine 220 Uretheral (Luna) 120 Other: Voiding Method Indwelling Catheter Indwelling Catheter # Voids 1 - Exam Right lower extremity: Incision is clean, dry, and intact. The exofin fusion tape is in good condition. There is minimal soft tissue swelling and ecchymosis surrounding the medial and lateral aspects of the incision. Calf is soft, no tenderness with palpation. Plantar flexion, dorsiflexion, EHL, FHL are intact. Sensory exam to light touch throughout the extremity is intact, dorsal pedis pulses 2+. - Labs CBC & Chem 7: 11/09/20 06:10 11/07/20 11:19 Labs: Abnormal Lab Results - Last 24 Hours (Table) 11/09/20 11/09/20 11/09/20 Range/Units 11:37 16:51 20:33 POC Glucose (mg/dL) 249 H 177 H 211 H (75-99) mg/dL 11/10/20 Range/Units 07:01 POC Glucose (mg/dL) 148 H (75-99) mg/dL Assessment and Plan Assessment: Status post right total hip arthroplasty, lateral approach Acute blood loss anemia, expected surgical outcome Plan: Pain control, plan for dc on [place] 5mg/325mg GI and DVT prophylaxis, Heparin 5000 units q12 hour for 2-3 weeks Plan for ferrous sulfate 325 mg twice a day for anemia, order has been placed for CBC to be traumatic 10/04/2020 Daily dressing changes Encourage incentive spirometer Medical recommendations Discharge planning: Planning for discharge to rehab today Time with Patient: Less than 30
[2020-11-10 11:47] LABS: Glucose,Whole Blood 152 mg/dL (75-99)
--- NOTE | 2020-11-10 14:04 | P.DS ---
Providers Date of admission: 11/07/20 13:22 Expected date of discharge: 11/10/20 Attending physician: Brannon Reddy Consults: 11/07/20 13:23 Consult Physician Urgent Consulting Provider: Norberto Dumont Reason/Comments: Surgical clearance, medical management Do you want consulting provider notified?: Yes Primary care physician: Norberto Dumont Hospital Course: Date of admission: 11/07/2020 Date of discharge: 11/10/2020 Admission diagnosis: Displaced right subcapital femur fracture Discharge diagnosis: Status post right total hip arthroplasty, lateral approach Attending physician: Dr. Reddy Surgical procedures: Right total hip arthroplasty, lateral approach Brief history: Patient is a 65-year-old female who was evaluated at [facility] on 11/07/2020 after sustaining a fall at home. Imaging studies demonstrated a displaced subcapital femur fracture on the right side. Patient was admitted under orthopedic care with plan for surgical intervention. She underwent surgery on 11/08/[address] Reddy. Hospital course: Details of patient's surgery can be found in operative report. Patient tolerated the procedure well and was subsequently transported to orthopedic floor. Patient's orthopeidc and medical care was provided daily. Patient had daily laboratory tests performed for evaluation of overall blood counts. Patient had daily physical therapy to include strengthening range of motion as well as education with walker ambulation. Patient was treated with Lovenox for their postoperative DVT prophylaxis during their inpatient stay. Patient was noted to have a relatively uneventful postoperative course. Patient reported satisfactory pain control with oral pain medications by postoperative day 0. Patient showed satisfactory progress with physical therapy. Patient moved steadily through the program and had no difficulty meeting the goals by postoperative day 2. Given patient's otherwise satisfactory course and having met physical therapy goals, plan is to discharge patient rehab on postoperative day 2. Discharge condition/disposition: Patient will be discharged rehab in stable condition. Discharge medications: Instructions are given on resumption of patient's normal daily medications per primary care recommendation, in addition patient will be prescribed Pindall 5 mg/325 mg, Colace 100 mg, heparin 5000 units, Ferrous Sulfate 325mg. Discharge instructions: 1. Wound care and infection precautions, keep incision dry and covered while showering, no lotions, creams, moisturizers. No soaking, tubs, pools, hottubs. Do not scrub over the incision. 2. Weight-bear as tolerated with walker / cane until follow-up. 3. Ice and elevate when necessary. Do not exceed 20 minutes per hour with ice pack. 4. Utilize compression sleeve until seen at first follow up appointment. 5. Visiting nursing care. 6. Home physical therapy. 7. Pain meds and anticoagulants per prescription. 8. Pain medication has potential to cause constipation. Increase oral fluid and fiber intake. Contact primary care provider if you have not had a bowel movement within 48 hours after discharge 9. No anti-inflammatory medication until discussed at first post operative visit, this including Motrin, Aleve, Mobic, Diclofenac. 10. Follow up in office at 2 weeks postop with Juaquin Fuentes PA-C/Jovan Shaffer 11. Follow up with your primary care doctor 7-10 days after discharge. 12. Contact [facility] with any questions, . Procedures: Right total hip arthroplasty, lateral approach Patient Condition at Discharge: Fair Plan - Discharge Summary Discharge Rx Participant: No New Discharge Prescriptions: New Docusate [Colace] 100 mg PO DAILY #30 capsule HYDROcodone/APAP 5-325MG [[place] 5-325] 1 tab PO Q6HR PRN 3 Days #12 tab PRN Reason: Pain Heparin Sodium,Porcine [Heparin Sodium] 5,000 unit SQ Q12HR #3 each Ferrous Sulfate [Iron (65 MG Elemental)] 325 mg PO BID #30 tab No Action traMADol HCl [Ultram] 50 mg PO QID PRN PRN Reason: Pain Benazepril HCl [Lotensin] 20 mg PO HS Atorvastatin [Lipitor] 80 mg PO HS Aspirin EC [Ecotrin Low Dose] 81 mg PO HS hydrOXYzine HCL [Atarax] 10 mg PO HS Ergocalciferol [Vitamin D2 (DRISDOL)] 50,000 unit PO Q30D Hydrocortisone Cream [Hydrocortisone 2.5% Cream] 1 applic TOPICAL QID PRN PRN Reason: Dry Skin Artificial Tears-Hypromellose [Artificial Tear Drops] 1 drops BOTH EYES TID PRN PRN Reason: DRY EYES Pilocarpine HCl [Salagen] 5 mg PO BID Oxybutynin Chloride [Ditropan XL] 10 mg PO BID Omeprazole [PriLOSEC] 40 mg PO HS metFORMIN HCL [Glucophage] 500 mg PO DAILY Loratadine [Claritin] 10 mg PO DAILY Pramipexole Di-HCl [Mirapex] 3 mg PO HS Nystatin 1 applic TOPICAL BID PRN PRN Reason: Rash Discharge Medication List Aspirin EC [Ecotrin Low Dose] 81 mg PO HS 06/04/15 [History] Atorvastatin [Lipitor] 80 mg PO HS 06/04/15 [History] Benazepril HCl [Lotensin] 20 mg PO HS 06/04/15 [History] traMADol HCl [Ultram] 50 mg PO QID PRN 06/04/15 [History] hydrOXYzine HCL [Atarax] 10 mg PO HS 06/28/17 [History] Artificial Tears-Hypromellose [Artificial Tear Drops] 1 drops BOTH EYES TID PRN 07/11/18 [History] Ergocalciferol [Vitamin D2 (DRISDOL)] 50,000 unit PO Q30D 07/11/18 [History] Hydrocortisone Cream [Hydrocortisone 2.5% Cream] 1 applic TOPICAL QID PRN 07/11/18 [History] Loratadine [Claritin] 10 mg PO DAILY 03/21/20 [History] Omeprazole [PriLOSEC] 40 mg PO HS 03/21/20 [History] Oxybutynin Chloride [Ditropan XL] 10 mg PO BID 03/21/20 [History] Pilocarpine HCl [Salagen] 5 mg PO BID 03/21/20 [History] metFORMIN HCL [Glucophage] 500 mg PO DAILY 03/21/20 [History] Nystatin 1 applic TOPICAL BID PRN 07/06/20 [History] Pramipexole Di-HCl [Mirapex] 3 mg PO HS 07/06/20 [History] Docusate [Colace] 100 mg PO DAILY #30 capsule 11/10/20 [Rx] Ferrous Sulfate [Iron (65 MG Elemental)] 325 mg PO BID #30 tab 11/10/20 [Rx] HYDROcodone/APAP 5-325MG [[place] 5-325] 1 tab PO Q6HR PRN 3 Days #12 tab 11/10/20 [Rx] Heparin Sodium,Porcine [Heparin Sodium] 5,000 unit SQ Q12HR #3 each 11/10/20 [Rx] Follow up Appointment(s)/Referral(s): Norberto Dumont MD [Primary Care Provider] - 1-2 days [facility], [NON-STAFF] - As Needed Jovan Klein, LENNY [PHYSICIAN INSULATION INSPECTOR] - 2 Weeks Ambulatory/Diagnostic Orders: Complete Blood Count w/diff [LAB.AMB] Location: None Selected Activity/Diet/Wound Care/Special Instructions: Orthopedic Discharge Instructions: 1. Wound care and infection precautions, keep incision dry and covered while showering, no lotions, creams, moisturizers. No soaking, pools, hot tubs. Do not scrub over incision. 2. Weight-bear as tolerated with walker / cane until follow-up. 3. Ice and elevate when necessary. Do not exceed 20 minutes per hour with ice pack. 4. Utilize compression sleeve until seen at first follow up appointment. 5. Pain meds and anticoagulants per prescription. 6. Pain medication has potential to cause constipation. Increase oral fluid and fiber intake. Contact primary care provider if you have not had a bowel movement within 48 hours after discharge. 7. No anti-inflammatory medication until discussed at first post operative visit, this including Motrin, Aleve, Mobic, Diclofenac. 8. Follow up in office at 2 weeks postop with Juaquin Fuentes PA-C/Jovan Klein PA-C 9. Follow up with your primary care doctor 7-10 days after discharge. 10. Contact [facility] with any questions, . Discharge Disposition: TRANSFER TO SNF/ECF
[2020-11-10 14:25] VITALS: BP 94/57; PULSE 108; TEMP 98
--- NOTE | 2020-11-10 19:48 | PN ---
PROGRESS NOTE DATE OF SERVICE: 11/10/2020 CHIEF COMPLAINT: Fracture of the right hip. HISTORY OF PRESENT ILLNESS: This lady is doing well and will probably be going home (static) MMODL / IJN: [id number] /
== END 2020-11-10 15:43 | DRG 522 ==
LOC: EC 10:28 → 4SSUR 13:22
PROVIDERS: ADMIT Orthopaedic Surgery; ATTEND Orthopaedic Surgery
PROC: 0SR90JZ Replacement of Right Hip Joint with Synthetic Substitute, Open Approach (ICD-10-PCS; principal; 2020-11-08 07:30)
DX: S72.011A Unspecified intracapsular fracture of right femur, initial encounter for closed fracture (principal); D62 Acute posthemorrhagic anemia; E11.9 Type 2 diabetes mellitus without complications; E78.5 Hyperlipidemia, unspecified; I10 Essential (primary) hypertension; Z80.3 Family history of malignant neoplasm of breast; Z80.7 Family history of other malignant neoplasms of lymphoid, hematopoietic and related tissues; Z96.651 Presence of right artificial knee joint; Z80.51 Family history of malignant neoplasm of kidney; W01.0XXA Fall on same level from slipping, tripping and stumbling without subsequent striking against object, initial encounter; F41.9 Anxiety disorder, unspecified; F32.9 Major depressive disorder, single episode, unspecified; Z79.899 Other long term (current) drug therapy; Z79.84 Long term (current) use of oral hypoglycemic drugs; Y92.009 Unspecified place in unspecified non-institutional (private) residence as the place of occurrence of the external cause
CPT/HCPCS: 36415; 71045; 73501; 73502; 80053; 81003; 85025; 85610; 85730; 86850; 86870; 86880; 86900; 86901; 86902; 88305; 88311; 90471; 90715; 93005; 96374; 96375; 99285

== ENCOUNTER → 2021-01-11 | Outpatient (CLI) | payer OTHER ==
--- NOTE | 2021-01-12 05:25 | MR ---
EXAMINATION TYPE: MR shoulder RT wo con DATE OF EXAM: 01/11/2021 COMPARISON: None HISTORY: Right shoulder pain x 6 months, recent fall. Multiplanar multiecho imaging of the right shoulder without contrast. There is some spurring at the AC joint. There are small areas of increased signal in the supraspinatu s tendon. There is no full-thickness tear. There is no retraction. There is mild subacromial impingem ent due to spurring at the AC joint. Glenoid adis appear intact. The biceps tendon is intact. There is shoulder joint effusion. Subscapul talib tendon is intact. There is no evidence of a fracture. There is narrowing of the glenohumeral balbina nt space with spur formation. 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 No evidence of full-thickness tear of the s upraspinatus tendon. There is subacromial impingement due to spurring at the AC joint. There is mild thickening of the supraspinatus tendon consistent with tendinitis at the greater tuberosity.
== END | disposition home or self-care (01) ==
LOC: RADMRIMAIN 18:49
PROVIDERS: ATTEND Orthopaedic Surgery
DX: M19.011 Primary osteoarthritis, right shoulder (principal)

== ENCOUNTER → 2021-03-02 | Outpatient (CLI) | payer OTHER ==
--- NOTE | 2021-03-02 21:57 | SFUN ---
SLEEP CENTER FOLLOW UP NOTE DATE OF SERVICE: 03/02/2021. 65-year-old lady has been followed in Sleep Center for treatment of obstructive sleep apnea-hypopnea syndrome. Patient continues to use her CPAP equipment. What she does not like it is that her nasal pillow mask holes which is on her head sometimes goes off. [place] Sleepiness Scale today is increased to 14. I checked her CPAP unit. Range of the pressure 5-12, average pressure 9.1, usage is 30/30 nights, and 27/30 nights for more than 4 hours, average 6.7 hours per night. Apnea-hypopnea index only 2.4 which is absolutely perfect. Leak slightly increased to 37 L/minute. MEDICATIONS: Atorvastatin 80 mg once a day, loratadine once a day, benazepril, metformin, pramipexole, aspirin 81 mg once a day, tramadol. PHYSICAL EXAMINATION: GENERAL: Patient in no distress. BP 131/74, HR 96, RR 15, height 5 feet 2 inches, weight 217, temperature 97.1, oxygen saturation at room air 100%. Oropharynx:extremely low position of soft palate. NECK: Supple, no JVD. Thyroid is not palpable. LUNGS: Clear to percussion and to auscultation. Good air exchange. No wheezing or rhonchi. HEART: S1, S2 regular. No murmurs, gallops, or rubs. ABDOMEN: Slightly obese. Soft and nontender. Bowel sounds are present. No organomegaly appreciated. EXTREMITIES: No clubbing or cyanosis. PANAMA HAT SMEARER: The patient walks with a walker. IMPRESSION: 1. Mild obstructive sleep apnea-hypopnea syndrome. The patient demonstrated good compliance with treatment. Normal respiration on CPAP. 2. History of severe periodic limb movements. The patient is on treatment with Mirapex, with Mirapex, feels better. 3. Obesity. 4. History of diabetes mellitus. 5. Hypertension. 6. Hyperlipidemia. 7. History of depression. 8. Status post tonsillectomy. 9. Status post tubal ligation. PLAN: 1. Patient will continue on treatment with Mirapex at bedtime, 0.125 mg up to 2 tablets and again this is Mirapex. 2. Patient will continue to use PAP equipment every night for the whole night. 3. Sleep hygiene with regular time in bed for at least 7-1/2 to 8 hours. 4. Precautions related to driving. No driving if feeling sleepiness. 5. I will maintain all necessary prescription for PAP supplies including mask, tube, filters. 6. Watching weight. 7. Follow-up visit in 6 months or earlier if patient has any problems. Thank you very much for allowing me to participate in management of your patient. Sincerely, Vince Gonzales MD, PhD, FAASM Diplomat of [place] [employer] Sleep Medicine Board of [place] [employer] Blocking Machine Operator of [facility] MMODL / IJN: [id number] /
== END ==
LOC: SLEEP 11:09
PROVIDERS: ATTEND Internal Medicine
DX: G47.33 Obstructive sleep apnea (adult) (pediatric) (principal); E66.9 Obesity, unspecified; E11.9 Type 2 diabetes mellitus without complications; I10 Essential (primary) hypertension; E78.5 Hyperlipidemia, unspecified; F32.A Depression, unspecified; Z98.51 Tubal ligation status; Z90.89 Acquired absence of other organs

== ENCOUNTER 2021-03-18 18:36 | Emergency (ER) | payer OTHER ==
[2021-03-18 18:59] VITALS: BP 177/78; PULSE 88; RESP 18; TEMP 97.6
--- NOTE | 2021-03-18 19:53 | ED ---
General Adult HPI - General Chief complaint: Upper Respiratory Infection Stated complaint: covid exposure, body aches Time Seen by Provider: 03/18/21 19:02 Source: patient, RN notes reviewed Mode of arrival: ambulatory Limitations: no limitations - History of Present Illness Initial comments: 65-year-old female presented emergency department for COVID-19 testing. Patient states that her tested positive. Patient states she's had some mild aches and congestion. No fevers chills no chest pain or shortness breath no other associated complaints. - Related Data Home Medications Medication Instructions Recorded Confirmed Aspirin EC [Ecotrin Low Dose] 81 mg PO HS 06/04/15 11/07/20 Atorvastatin [Lipitor] 80 mg PO HS 06/04/15 11/07/20 Benazepril HCl [Lotensin] 20 mg PO HS 06/04/15 11/07/20 hydrOXYzine HCL [Atarax] 10 mg PO HS 06/28/17 11/07/20 Artificial Tears-Hypromellose 1 drops BOTH EYES TID PRN 07/11/18 11/07/20 [Artificial Tear Drops] Ergocalciferol [Vitamin D2 50,000 unit PO Q30D 07/11/18 11/07/20 (DRISDOL)] Hydrocortisone Cream 1 applic TOPICAL QID PRN 07/11/18 11/07/20 [Hydrocortisone 2.5% Cream] Loratadine [Claritin] 10 mg PO DAILY 03/21/20 11/07/20 Omeprazole [PriLOSEC] 40 mg PO HS 03/21/20 11/07/20 Oxybutynin Chloride [Ditropan XL] 10 mg PO BID 03/21/20 11/07/20 Pilocarpine HCl [Salagen] 5 mg PO BID 03/21/20 11/07/20 metFORMIN HCL [Glucophage] 500 mg PO DAILY 03/21/20 11/07/20 Nystatin 1 applic TOPICAL BID PRN 07/06/20 11/07/20 Pramipexole Di-HCl [Mirapex] 3 mg PO HS 07/06/20 11/07/20 Previous Rx's Medication Instructions Recorded Docusate [Colace] 100 mg PO DAILY #30 capsule 11/10/20 Ferrous Sulfate [Iron (65 MG 325 mg PO BID #30 tab 11/10/20 Elemental)] HYDROcodone/APAP 5-325MG [[place] 1 tab PO Q6HR PRN 3 Days #12 tab 11/10/20 5-325] Heparin Sodium,Porcine [Heparin 5,000 unit SQ Q12HR #3 each 11/10/20 Sodium] Allergies Allergy/AdvReac Type Severity Reaction Status Date / Time No Known Allergies Allergy Verified 03/18/21 18:58 Review of Systems ROS Statement: Those systems with pertinent positive or pertinent negative responses have been documented in the HPI. ROS Other: All systems not noted in ROS Statement are negative. Past Medical History Past Medical History: Diabetes Mellitus, Hyperlipidemia, Hypertension, Osteoarthritis (OA), Renal Disease Additional Past Medical History / Comment(s): ADMITTED 07/12/18-07/14/18 FOR ANEMIA, HGB 6.7, URI AND UTI. WAS TRANSFUSED WITH 1 UNIT PRBC. HBG 9.8-07/14/18. 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 History of Any Multi-Drug Resistant Organisms: None Reported Past Surgical History: Orthopedic Surgery, Tonsillectomy, Tubal Ligation Additional Past Surgical History / Comment(s): bunionectomy left foot and a plate. COLONOSCOPY, EGD, total right knee 03/28/19 Past Anesthesia/Blood Transfusion Reactions: No Reported Reaction Past Psychological History: Anxiety, Depression Smoking Status: Never smoker Past Alcohol Use History: None Reported Past Drug Use History: None Reported - Past Family History Mother Family Medical History: Cancer Additional Family Medical History / Comment(s): breast cancer Brother(s) Family Medical History: Cancer Additional Family Medical History / Comment(s): kidney cancer Son(s) Family Medical History: Cancer Additional Family Medical History / Comment(s): lymphoma General Exam Limitations: no limitations General appearance: alert, in no apparent distress Head exam: Present: atraumatic, normocephalic, normal inspection Eye exam: Present: normal appearance, PERRL, EOMI. Absent: scleral icterus, conjunctival injection, periorbital swelling Neck exam: Present: normal inspection. Absent: tenderness, meningismus, lymphadenopathy Respiratory exam: Present: normal lung sounds bilaterally. Absent: respiratory distress, wheezes, rales, rhonchi, stridor Course Vital Signs 03/18/21 18:53 Temperature 97.6 F Pulse Rate 88 Respiratory 18 Rate Blood Pressure 177/78 O2 Sat by Pulse 99 Oximetry Medical Decision Making - Lab Data Lab Results 03/18/21 Range/Units 18:59 Coronavirus (PCR) Not Detected (Not Detectd) Disposition Clinical Impression: Encounter for laboratory testing for COVID-19 virus Disposition: HOME SELF-CARE Condition: Stable Additional Instructions: Please return to the Emergency Department if symptoms worsen or any other concerns. Is patient prescribed a controlled substance at d/c from ED?: No Referrals: Norberto Dumont MD [Primary Care Provider] - 1-2 days Time of Disposition: 19:53
== END 2021-03-18 20:15 | disposition home or self-care (01) ==
LOC: EC 18:36
DX: Z11.52 Encounter for screening for COVID-19 (principal); R09.81 Nasal congestion; R52 Pain, unspecified; Z20.822 Contact with and (suspected) exposure to COVID-19; E11.9 Type 2 diabetes mellitus without complications; I10 Essential (primary) hypertension; E78.5 Hyperlipidemia, unspecified; M19.90 Unspecified osteoarthritis, unspecified site; F32.A Depression, unspecified; F41.9 Anxiety disorder, unspecified; Z79.82 Long term (current) use of aspirin; Z79.84 Long term (current) use of oral hypoglycemic drugs; Z79.899 Other long term (current) drug therapy
CPT/HCPCS: 87635; 99283

== ENCOUNTER 2021-04-27 06:34 | Day surgery (SDC) | payer OTHER ==
[2021-04-25 09:27] VITALS: BMI 38.9
--- NOTE | 2021-04-26 20:06 | HP ---
HISTORY AND PHYSICAL DATE OF SURGERY: 04/27/2021 Naty Cross is a 65-year-old patient seen with progressive right shoulder pain. We discussed options. She elected to proceed with arthroscopy. Consent was obtained. Clearance was provided by Dr. Dumont. PAST MEDICAL HISTORY: Itv-jmreopu-oiyoytsbf diabetes, hypertension, hyperlipidemia. PAST SURGICAL HISTORY: Total knee arthroplasty, tubal ligation, abdominoplasty. DAILY MEDICATIONS: Atorvastatin, aspirin, benazepril, metformin, omeprazole, vitamins. ALLERGIES: NONE. SOCIAL HISTORY: She denies tobacco use. PHYSICAL EVALUATION OF THE RIGHT SHOULDER: Flexion is 140 degrees, Abduction is 120 degrees. External rotation is 40 degrees with some weakness. Tenderness along the anterolateral acromion and rotator cuff insertion. Impingement is positive at 90 degrees. Drop-arm sign is negative. Distal neurovascular exam is intact. Radiographs of the right shoulder revealed a type 2 acromion as well as acromioclavicular joint osteoarthritis. Right shoulder are MRI revealed acromioclavicular joint osteoarthritis, impingement and glenohumeral joint osteoarthritis. IMPRESSION: 1. Right shoulder impingement. 2. Right shoulder acromioclavicular joint osteoarthritis. 3. Hypertension. 4. Hyperlipidemia. 5. Iyb-bnanbye-ppeouhsow diabetes. PLAN: Right shoulder arthroscopy, subacromial decompression, Dougie procedure, possible rotator cuff repair and debridement. MMODL / IJN: [id number] /
[~2021-04-27 06:34] MED LIST changes: -ACETAMINOPHEN TAB 500 MG TAB PO PRN; +LIDOCAINE 1% (10MG/ML) FOR IV START INTRADERMA PRN; -MELOXICAM 7.5 MG TAB PO PRN; -MORPHINE SULFATE 2 MG/ML SYRINGE IV PRN; -TRANEXAMIC ACID 1,000 MG in SODIUM CHLORIDE 0.9% 100 ML IVPB PRN
[2021-04-27] MEDS ORDERED: HYDROmorphone 0.5 MG/0.5 ML SYRINGE IVP PRN (07:00)
[2021-04-27 07:08] LABS: Glucose,Whole Blood 117 mg/dL (75-99)
[2021-04-27 07:10] VITALS: RESP 16
[2021-04-27] MEDS: LACTATED RINGERS 1,000 ML IV SCH ×2 (07:10→07:56)
[2021-04-27] MEDS ORDERED: fentaNYL (PF) 50 MCG/ML 2 ML AMP IVP ONE (07:40)
[2021-04-27] MEDS ORDERED: MIDAZOLAM 2 MG/2 ML VIAL IVP ONE (07:40)
[2021-04-27] MEDS ORDERED: MIDAZOLAM 2 MG/2 ML VIAL ONE (07:53)
[2021-04-27] MEDS ORDERED: ROCURONIUM 10 MG/ML (5 ML VIAL) IV ONE (07:53)
[2021-04-27] MEDS ORDERED: fentaNYL (PF) 50 MCG/ML 2 ML AMP ONE (07:53)
[2021-04-27] MEDS ORDERED: PROPOFOL 10 MG/ML 20 ML VIAL IV ONE (07:53)
[2021-04-27] MEDS ORDERED: SUCCINYLCHOLINE CHLORIDE 100 MG/5 ML SYR IV ONE (07:53)
[2021-04-27] MEDS ORDERED: ROPIVACAINE 5 MG/ML 30 ML VIAL ONE (07:53)
[2021-04-27] MEDS ORDERED: GLYCOPYRROLATE 0.2 MG/ML 2 ML VIAL ONE (07:53)
[2021-04-27] MEDS ORDERED: LIDOCAINE 1% INJ 10MG/ML (20 ML MDV) ONE (07:53)
[2021-04-27] MEDS ORDERED: NEOSTIGMINE 1 MG/ML 10 ML VIAL ONE (07:53)
[2021-04-27] MEDS ORDERED: PHENYLEPHRINE-0.9% NACL SYG 1,000 MCG/10 ML SYRINGE ONE (07:53)
--- NOTE | 2021-04-27 09:25 | P.OP ---
Date of Procedure: 04/27/21 Preoperative Diagnosis: Right shoulder impingement Postoperative Diagnosis: 1. Right shoulder rotator cuff tear 2. Right shoulder impingement 3. Right shoulder acromioclavicular joint osteoarthritis 4. Right shoulder superficial labral tear 5. Right shoulder glenohumeral joint osteoarthritis Procedure(s) Performed: 1. Right shoulder arthroscopic rotator cuff repair 2. Right shoulder arthroscopic Dougie procedure 3. Right shoulder arthroscopic subacromial decompression 4. Right shoulder arthroscopic debridement labral tear Anesthesia: GETA, regional (Interscalene block) Surgeon: Дмитрий Mckeon Bitumastic Applier #1: Rc Fuentes Estimated Blood Loss (ml): 11 Pathology: none sent Condition: stable Disposition: PACU Indications for Procedure: 65-year-old patient seen with progressive right shoulder pain. After having treatment options discussed, she elected to proceed with arthroscopy. Operative Findings: See description of procedure Description of Procedure: Patient underwent an interscalene block by department of anesthesia. The patient was then taken to the operative suite. The patient underwent a general anesthetic by the department of anesthesia. The patient was placed into a lateral position and secured. There was appropriate padding of the bony prominence. Right shoulder was then prepped and draped in normal sterile orthopedic fashion. We placed the extremity in 10 pounds of longitudinal traction. A posterior incision was now made for a posterior working portal site. The trocar and cannula were inserted into the glenohumeral joint. Arthroscopy was initiated. Spinal needle was now inserted anteriorly, to ascertain the anterior working portal site. An incision was now made in that area, a trocar was inserted followed by a probe. There was superficial tearing of the anterior labrum. There were areas of grade 3/4 chondromalacia involving both the humeral head and glenoid. The remaining labrum appeared stable. The biceps appeared stable. I introduced a motorized shaver and debrided out the superficial labral tear. Residual labrum was probed and found to be stable. Instruments now removed from glenohumeral joint. Utilizing the posterior working portal site, the trocar and cannula were inserted into the subacromial space. Arthroscopy initiated. I made an incision 2 fingerbreadths lateral to the acromion. I introduced my trocar followed by my ArthroCare ablator. I now began ablating thick subacromial bursal tissue, which exposed the undersurface of the anterior acromion. There was diminished subacromial space. There was a very prominent anterior acromion. A motorized bur was introduced and a subacromial decompression was performed. I also excised some osteophytes off the inferior aspect of the distal clavicle. The AC joint was visualized and noted to be fairly arthritic. The motorized bur was introduced in the anterior portal site and a Dougie procedure was performed without difficulty, decompressing the AC joint nicely. I turned my attention to the rotator cuff. There was an intrasubstance tear involving the supraspinatus measuring approximately 2 cm. The remainder of the rotator cuff tendon was probed and found to be stable. I debrided the margins of the intrasubstance tendon tear getting down to stable tendon tissue. With the assistance of Juaquin DRAKE I passed 3 sutures through good bites of rotator cuff tendon. I now repaired the tendon with those sutures with [id number] fashion with assistance of Juaquin DRAKE. Residual suture limbs were clipped. The repair was probed and found to be stable. Instruments now removed from the portal sites. All portal sites were approximated with nylon suture. Sterile dressings were applied followed by a shoulder sling. Rc DRAKE assisted in this complex case. The patient was awakened, transferred to a bed, and taken to recovery in stable condition.
[2021-04-27 09:29] VITALS: TEMP 96.8
[2021-04-27] MEDS ORDERED: HYDROcodone/APAP 7.5-325MG 1 EACH TAB ONE (10:20)
--- NOTE | 2021-04-27 10:27 | P.ANPRN ---
Procedure Note - Anesthesia - Nerve Block Performed Right Interscalene Time Out Performed: Yes (07:36) Date of Procedure: 04/27/21 Procedure Start Time: :36 Procedure Stop Time: :45 Location of Patient: PreOp Indication: Acute Post-Operative Pain, Requested by Surgeon (Dr Mckeon) Sedation Type: Sedate with meaningful contact maintained Preparation: Sterile Prep Position: Supine Catheter: None Needle Types: Pajunk Needle Gauge: Other (see comment) (22g) Ultrasound used to visualize needle placement: Yes Ultrasound used to observe medication spread: Yes Injectate: 0.5% Ropivacaine (see comment for volume) (20cc) Blood Aspirated: No Pain Paresthesia on Injection Noted: No Resistance on Injection: Normal Image Stored and Saved: Yes Events: Uneventful and Well Tolerated
[2021-04-27 10:37] VITALS: BP 122/71; PULSE 82
== END 2021-04-27 11:26 | disposition home or self-care (01) ==
LOC: OR 06:34
PROVIDERS: ATTEND Orthopaedic Surgery
DX: M75.41 Impingement syndrome of right shoulder (principal); M75.101 Unspecified rotator cuff tear or rupture of right shoulder, not specified as traumatic; M19.011 Primary osteoarthritis, right shoulder
CPT/HCPCS: 29822; 29827; 29826; J2250; J1100; J2710; J0690; J2405; J2001; J3010; J2795; J2370; J0330; J2704

== ENCOUNTER → 2021-10-04 | Outpatient (CLI) | payer OTHER ==
--- NOTE | 2021-10-04 11:48 | P.PN ---
Subjective DATE: 10/04/2021 22 FOLLOW UP VISIT. Patient with obstructive sleep apnea hypopnea syndrome return to sleep center for follow-up visit. Information from previous visit have been reviewed. Patient is using PAP equipment every night for the whole night, getting PAP supplies in time. The patient does not have significant problems with the mask, PAP unit and humidification. [place] sleepiness scale is 6. I checked information from PAP unit. PAP unit pressure 512 cm H2O. Usage is 100 % for more then 4 hours, average 5 hours per night. Leak is 14 l/m, which is in acceptable range. Apnea Hypopnea Index is 0.9, which is normal. MEDICATIONS:1. Loratidine 2. Hydrochlorothiazide 3. Metformin 4. Tramadol 5. Aspirin 6. Benazepril 7. Atorvastatin 8. Omeprazole During physical exam: GENERAL: A pleasant patient without any distress. VITAL SIGNS: BP 127/64, HR and T7, RR 18, weight 237.8, temperature 97, oxygen saturation at room air 98 % . HEENT: PERRLA, EOMI.low position of soft palate, Mallapati 4. NECK: Supple. No JVD. LUNGS: Clear to percussion and to auscultation. Good air exchange. No wheezing or rhonchi. HEART: S1, S2 regular. ABDOMEN: Soft and nontender. Obese EXTREMITIES: No clubbing or cyanosis. POULTRY AND FISH BUTCHER: Awake, alert, and oriented x3. No focal deficit. Impressions: 1. Obstructive sleep apnea-hypopnea syndrome. Patient demonstrated great compliance with treatment, benefiting from treatment. 2. Obesity. 3. History of periodic limb movements. 4. Hypertension. 5. History of diabetes mellitus. 6. Hyperlipidemia. 7. History of depression. 8. Status post tonsillectomy. 9. Status post tubal ligation. Plan: 1. Continue using PAP equipment every night for the whole night. 2. To change air filter at least 1-2 times per month. 3. PAP unit should stay lower then position of the head. 4. Advised patient to remove all remaining water from humidifier canister daily and make it dry after each usage. Refill canister with fresh distilled water before each usage. 5. Sleep hygiene with regular time in bed for at least 8 hours. 6. Precautions related to driving. No driving if feel any sleepiness. 7. I will maintain prescription for PAP supplies including mask, tube, filters. 8. Follow up visit in 6 months or earlier if patient has any problems. 9. Aggressive losing weight. Thank you very much for allowing me to participate in the management of your patient. Vince Gonzales MD, PhD, FAASM. Diplomat of [place] [employer], Sleep Medicine Board by [place] [employer] Technical Maintenance Technician of [facility] [place]
== END ==
LOC: SLEEP 11:08
PROVIDERS: ATTEND Internal Medicine
DX: G47.33 Obstructive sleep apnea (adult) (pediatric) (principal); E66.9 Obesity, unspecified; I10 Essential (primary) hypertension; G47.61 Periodic limb movement disorder; E11.9 Type 2 diabetes mellitus without complications; E78.5 Hyperlipidemia, unspecified; F32.A Depression, unspecified; Z90.09 Acquired absence of other part of head and neck; Z98.51 Tubal ligation status; Z99.89 Dependence on other enabling machines and devices; Z79.84 Long term (current) use of oral hypoglycemic drugs

== ENCOUNTER 2021-10-22 18:26 | Emergency (ER) | payer OTHER ==
[2021-10-22 18:32] VITALS: BP 159/84; PULSE 100; RESP 18; TEMP 99.4
[2021-10-22] MEDS ORDERED: ONDANSETRON 4 MG/2 ML VIAL IVP STA (18:59)
[2021-10-22] MEDS ORDERED: SODIUM CHLORIDE 0.9% 1,000 ML IV STA (18:59)
--- NOTE | 2021-10-22 19:10 | ED ---
General Adult HPI - General Source: patient, RN notes reviewed, old records reviewed Mode of arrival: wheelchair Limitations: no limitations <Yasmani Vasquez - Last Filed: 10/22/21 19:08> <Aamir Rey - Last Filed: 10/22/21 22:13> - General Chief complaint: Nausea/Vomiting/Diarrhea Stated complaint: N/V/D Time Seen by Provider: 10/22/21 18:33 - History of Present Illness Initial comments: 66-year-old female presenting for evaluation of vomiting and diarrhea. Patient states she's had one episode of vomiting with some dry heaving and significant diarrhea. She denies blood in her stool. Denies significant abdominal pain. Denies chest pain. She states she does feel somewhat lightheaded. She has not had anything to eat or drink today. No fever. No focal numbness or weakness. (Yasmani Vasquez) - Related Data Home Medications Medication Instructions Recorded Confirmed Aspirin EC [Ecotrin Low Dose] 81 mg PO HS 06/04/15 10/22/21 Atorvastatin [Lipitor] 80 mg PO HS 06/04/15 10/22/21 Benazepril HCl [Lotensin] 20 mg PO HS 06/04/15 10/22/21 hydrOXYzine HCL [Atarax] 10 mg PO HS 06/28/17 10/22/21 Ergocalciferol [Vitamin D2 50,000 unit PO Q30D 07/11/18 10/22/21 (DRISDOL)] Loratadine [Claritin] 10 mg PO DAILY 03/21/20 10/22/21 Omeprazole [PriLOSEC] 40 mg PO DAILY 03/21/20 10/22/21 Pilocarpine HCl [Salagen] 5 mg PO BID 03/21/20 10/22/21 metFORMIN HCL [Glucophage] 500 mg PO DAILY 03/21/20 10/22/21 Multivitamins, Thera [Multivitamin 1 tab PO DAILY 04/25/21 10/22/21 (formulary)] traMADol HCL [Ultram] 50 mg PO HS PRN 04/25/21 10/22/21 Fluticasone Nasal [place] [Flonase 2 spray EA NOSTRIL DAILY 10/22/21 10/22/21 Nasal [place]] Latanoprost Ophth [Xalatan 0.005%] 1 drops BOTH EYES HS 10/22/21 10/22/21 Meclizine [Antivert] 25 mg PO BID PRN 10/22/21 10/22/21 Nystatin 100,000 Unit/ml Susp 1 ml PO QID 10/22/21 10/22/21 [Mycostatin Oral Susp] Pramipexole [Mirapex] 0.25 mg PO HS 10/22/21 10/22/21 Previous Rx's Medication Instructions Recorded HYDROcodone/APAP 7.5-325MG [Hundred 1 each PO Q6HR PRN #28 tab 04/27/21 7.5] Allergies Allergy/AdvReac Type Severity Reaction Status Date / Time No Known Allergies Allergy Verified 10/22/21 20:23 Review of Systems ROS Other: All systems not noted in ROS Statement are negative. <Yasmani Vasquez - Last Filed: 10/22/21 19:08> ROS Other: All systems not noted in ROS Statement are negative. <Aamir Rey - Last Filed: 10/22/21 22:13> ROS Statement: Those systems with pertinent positive or pertinent negative responses have been documented in the HPI. Past Medical History Past Medical History: Diabetes Mellitus, Hyperlipidemia, Hypertension, Osteoarthritis (OA), Renal Disease, Sleep Apnea/CPAP/BIPAP Additional Past Medical History / Comment(s): Hx. of anemia approx. 2 years ago. Dry skin, Stage 2 kidney disease. History of Any Multi-Drug Resistant Organisms: None Reported Past Surgical History: Orthopedic Surgery, Tonsillectomy, Tubal Ligation Additional Past Surgical History / Comment(s): bunionectomy left foot and a plate. COLONOSCOPY, EGD, total right knee 03/28/19, R hip replacement. Past Anesthesia/Blood Transfusion Reactions: No Reported Reaction Past Psychological History: No Psychological Hx Reported Smoking Status: Never smoker Past Alcohol Use History: None Reported Past Drug Use History: None Reported - Past Family History Mother Family Medical History: Cancer Additional Family Medical History / Comment(s): breast cancer Brother(s) Family Medical History: Cancer Additional Family Medical History / Comment(s): kidney cancer Son(s) Family Medical History: Cancer Additional Family Medical History / Comment(s): lymphoma <Yasmani Vasquez - Last Filed: 10/22/21 19:08> General Exam Limitations: no limitations General appearance: alert, in no apparent distress Head exam: Present: atraumatic, normocephalic Eye exam: Present: normal appearance, PERRL ENT exam: Present: mucous membranes dry Neck exam: Present: normal inspection. Absent: tenderness, meningismus Respiratory exam: Present: normal lung sounds bilaterally. Absent: respiratory distress, wheezes Cardiovascular Exam: Present: regular rate, normal rhythm GI/Abdominal exam: Present: soft. Absent: distended, tenderness, guarding, rebound Extremities exam: Present: normal inspection, normal capillary refill. Absent: pedal edema Neurological exam: Present: alert, oriented X3, CN II-XII intact. Absent: motor sensory deficit Psychiatric exam: Present: normal affect, normal mood Skin exam: Present: warm, dry, intact. Absent: cyanosis, diaphoretic <Yasmani Vasquez N - Last Filed: 10/22/21 19:08> Course Vital Signs 10/22/21 18:30 Temperature 99.4 F Pulse Rate 100 Respiratory 18 Rate Blood Pressure 159/84 O2 Sat by Pulse 98 Oximetry EKG Findings - EKG Comments: EKG Findings:: Sinus tachycardia no ST segment elevation rate of 100, MI interval 195, QRS duration 66, QTC 404 <Yasmani Vasquez - Last Filed: 10/22/21 19:08> Medical Decision Making - Lab Data Result diagrams: 10/22/21 19:30 10/22/21 21:40 <Aamir Rey - Last Filed: 10/22/21 22:13> - Medical Decision Making Patient was signed out to me by previous shift physician, Dr. Mendenhall. Briefly, patient is 66-year-old female presents emergency department for symptoms consistent with gastroenteritis. Patient has stable vital signs. Labs did not show any obvious abnormalities. There was however a potassium specimen those hemolyzed. Plan cyanosis to follow-up with the repeat potassium level. Patient was evaluated at bedside finally stable medical condition. Patient states she feels better Repeat metabolic panel shows potassium 4.1. Patient reevaluated again at bedside 10:15 PM found to be stable medical condition. Patient be discharged. (Aamir Rey) - Lab Data Lab Results 10/22/21 10/22/21 10/22/21 Range/Units 19:30 19:30 21:40 WBC 8.0 (3.8-10.6) k/uL RBC 3.90 (3.80-5.40) m/uL Hgb 12.5 (11.4-16.0) gm/dL Hct 38.6 (34.0-46.0) % MCV 98.8 (80.0-100.0) fL MCH 32.0 (25.0-35.0) pg MCHC 32.4 (31.0-37.0) g/dL RDW 13.6 (11.5-15.5) % Plt Count 408 (150-450) k/uL MPV 7.4 Neutrophils % 62 % Lymphocytes % 26 % Monocytes % 8 % Eosinophils % 1 % Basophils % 0 % Neutrophils # 4.9 (1.3-7.7) k/uL Lymphocytes # 2.1 (1.0-4.8) k/uL Monocytes # 0.6 (0-1.0) k/uL Eosinophils # 0.1 (0-0.7) k/uL Basophils # 0.0 (0-0.2) k/uL Sodium 136 L 139 (137-145) mmol/L Potassium 4.1 (3.5-5.1) mmol/L Chloride 106 110 H (98-107) mmol/L Carbon Dioxide 20 L 21 L (22-30) mmol/L Anion Gap 10 8 mmol/L BUN 15 14 (7-17) mg/dL Creatinine 0.72 0.71 (0.52-1.04) mg/dL Est GFR (CKD-EPI)AfAm >90 >90 (>60 ml/min/1.73 sqM) Est GFR (CKD-EPI)NonAf 90 >90 (>60 ml/min/1.73 sqM) Glucose 186 H 113 H (74-99) mg/dL Calcium 9.1 8.8 (8.4-10.2) mg/dL Total Bilirubin 1.6 H 0.4 (0.2-1.3) mg/dL AST 92 H 26 (14-36) U/L ALT 26 19 (4-34) U/L Alkaline Phosphatase 91 89 (38-126) U/L Total Protein 8.2 6.5 (6.3-8.2) g/dL Albumin 4.7 3.9 (3.5-5.0) g/dL Lipase 121 (23-300) U/L Disposition <Yasmani Vasquez - Last Filed: 10/22/21 19:08> Is patient prescribed a controlled substance at d/c from ED?: No Time of Disposition: 22:13 <Aamir Rey - Last Filed: 10/22/21 22:13> Clinical Impression: Nausea Disposition: HOME SELF-CARE Condition: Good Instructions (If sedation given, give patient instructions): Acute Nausea and Vomiting (ED) Referrals: Norberto Dumont MD [Primary Care Provider] - 1-2 days
[2021-10-22 19:37] LABS: Basophils % (A) 0 %; Eosinophils # (A) 0.1 k/uL (0-0.7); Eosinophils % (A) 1 %; HCT 38.6 % (34.0-46.0); HGB 12.5 gm/dL (11.4-16.0); Lymphocytes # (A) 2.1 k/uL (1.0-4.8); Lymphocytes % (A) 26 %; MCHC 32.4 g/dL (31.0-37.0); MCV 98.8 fL (80.0-100.0); Mean Platelet Volume 7.4; Monocytes # (A) 0.6 k/uL (0-1.0); Monocytes % (A) 8 %; Neutrophils # (A) 4.9 k/uL (1.3-7.7); Neutrophils % (A) 62 %; Platelet Count 408 k/uL (150-450); RDW 13.6 % (11.5-15.5)
[2021-10-22 19:48] LABS: ALT 26 U/L (4-34); AST 92 U/L (14-36); African American GFR (CKD) >90 (>60 ml/min/1.73 sqM); Albumin 4.7 g/dL (3.5-5.0); Alkaline Phosphatase 91 U/L (38-126); Anion Gap 10 mmol/L; Blood Urea Nitrogen 15 mg/dL (7-17); Calcium 9.1 mg/dL (8.4-10.2); Carbon Dioxide 20 mmol/L (22-30); Chloride 106 mmol/L (98-107); Glucose 186 mg/dL (74-99); Lipase 121 U/L (23-300); Non-African American GFR(CKD) 90 (>60 ml/min/1.73 sqM); Sodium 136 mmol/L (137-145); Total Bilirubin 1.6 mg/dL (0.2-1.3); Total Protein 8.2 g/dL (6.3-8.2)
--- NOTE | 2021-10-22 20:02 | XR ---
EXAMINATION TYPE: XR KUB DATE OF EXAM: 10/22/2021 COMPARISON: NONE HISTORY: Abdominal pain TECHNIQUE: 2 views upright FINDINGS: There is no sign of intestinal obstruction or pneumoperitoneum. Fecal pattern is normal. No evidence of a mass. There is mild thoracolumbar levoscoliosis. There is right hip prosthesis. Lung b ases are clear. IMPRESSION: Nonacute abdomen.
[2021-10-22 22:10] LABS: ALT 19 U/L (4-34); AST 26 U/L (14-36); African American GFR (CKD) >90 (>60 ml/min/1.73 sqM); Albumin 3.9 g/dL (3.5-5.0); Alkaline Phosphatase 89 U/L (38-126); Anion Gap 8 mmol/L; Blood Urea Nitrogen 14 mg/dL (7-17); Calcium 8.8 mg/dL (8.4-10.2); Carbon Dioxide 21 mmol/L (22-30); Chloride 110 mmol/L (98-107); Glucose 113 mg/dL (74-99); Non-African American GFR(CKD) >90 (>60 ml/min/1.73 sqM); Potassium 4.1 mmol/L (3.5-5.1); Sodium 139 mmol/L (137-145); Total Bilirubin 0.4 mg/dL (0.2-1.3); Total Protein 6.5 g/dL (6.3-8.2)
== END 2021-10-22 22:35 | disposition home or self-care (01) ==
LOC: EC 18:26
DX: R11.2 Nausea with vomiting, unspecified (principal); E11.9 Type 2 diabetes mellitus without complications; E78.5 Hyperlipidemia, unspecified; M19.90 Unspecified osteoarthritis, unspecified site; I12.0 Hypertensive chronic kidney disease with stage 5 chronic kidney disease or end stage renal disease; N18.9 Chronic kidney disease, unspecified; Z79.82 Long term (current) use of aspirin; Z79.899 Other long term (current) drug therapy
CPT/HCPCS: 36415; 93005; 80053; 83690; 85025; 74018; 99284; 96374; J2405

== ENCOUNTER → 2021-11-28 | Outpatient (CLI) | payer OTHER ==
--- NOTE | 2021-11-28 09:27 | CT ---
EXAMINATION TYPE: CT iac wo con DATE OF EXAM: 11/28/2021 COMPARISON: NONE, PACS downtime. CT IAC report March 05, 2019. HISTORY: LABYRINTH FISTULA, RIGHT EAR CT DLP: 142.70 mGycm. Automated Exposure Control for Dose Reduction was Utilized. TECHNIQUE: CT scan of internal auditory canal is performed without contrast, thin cut axial images ar e obtained, coronal reformatted images are also reviewed. FINDINGS: The external auditory canals are patent bilaterally. Mastoid air cells show no evidence of abnormal opacification bilaterally. The middle ear ossicles are symmetric and unremarkable. There is no evidence of suspicious surroundi ng soft tissue density to suggest cholesteatoma. The scutum is preserved bilaterally. The cochlea and the semicircular canals are symmetric and unremarkable. There is adequate bony over coverage of the superior semicircular canals bilaterally. Vestibular aqueduct and internal carotid ca nal appear unremarkable. Temporomandibular joints are maintained bilaterally. There is 1.2 cm mucous retention cyst or polyp i n the posterior medial left maxillary sinus axial image 29. Minimal mucosal thickening in the inferio r right maxillary sinus medial wall. There are hypoplastic bilateral frontal sinuses. Visualized port ion brain parenchyma is felt within normal limits. IMPRESSION: No significant abnormality seen to account for patient's symptoms. No significant change from prior CT IAC report 2019.
== END | disposition home or self-care (01) ==
LOC: RADCTMAIN 07:37
PROVIDERS: ATTEND Nurse Practitioner Family
DX: H83.11 Labyrinthine fistula, right ear (principal)
CPT/HCPCS: 70480

== ENCOUNTER → 2022-04-04 | Outpatient (CLI) | payer OTHER ==
--- NOTE | 2022-04-04 12:00 | P.PN ---
Subjective DATE: 04/04/2022 FOLLOW UP VISIT. Patient with obstructive sleep apnea hypopnea syndrome return to sleep center for follow-up visit. Information from previous visit have been reviewed. Patient is using PAP equipment every night for the whole night, getting PAP supplies in time. The patient does not have significant problems with the mask, PAP unit and humidification. [place] sleepiness scale is increased to 12. I checked information from PAP unit. PAP unit pressure 5-12, average 6.5 cm H2O. Usage is 100 % for more then 4 hours, average 6 hours per night. Leak is 13.3 l/m, which is in acceptable range. Apnea Hypopnea Index is 0.5, which is normal. MEDICATIONS:1. Metformin 2. Hydrochlorothiazide 3. Benazepril 4. Omeprazole 5. Aspirin 6. Atorvastatin 7. Pramipexole 8. Pilocarpine During physical exam: GENERAL: A pleasant patient without any distress. VITAL SIGNS: BP 163/85, HR 100, RR 18 , weight to 37.2, temperature 97.3, oxygen saturation at room air 100% . HEENT: PERRLA, EOMI.low position of soft palate, Mallapati 4 . NECK: Supple. No JVD. LUNGS: Clear to percussion and to auscultation. Good air exchange. No wheezing or rhonchi. HEART: S1, S2 regular. ABDOMEN: Soft and nontender. Obese EXTREMITIES: No clubbing or cyanosis. PIPING ENGINEER: Awake, alert, and oriented x3. No focal deficit. Impressions: 1. Obstructive sleep apnea-hypopnea syndrome. Patient demonstrated great compliance with treatment, benefiting from treatment. 2. Periodic limb movements. 3. Obesity. 4. Hypertension. 5. History of diabetes mellitus. 6. History of depression. 7. Status post tonsillectomy. 8. Status post tubal ligation. . Plan: 1. Continue using PAP equipment every night for the whole night. 2. To change air filter at least 1-2 times per month. 3. PAP unit should stay lower then position of the head. 4. Advised patient to remove all remaining water from humidifier canister daily and make it dry after each usage. Refill canister with fresh distilled water before each usage. 5. Sleep hygiene with regular time in bed for at least 8 hours. 6. Precautions related to driving. No driving if feel any sleepiness. 7. I will maintain prescription for PAP supplies including mask, tube, filters. 8. Follow up visit in 6 months or earlier if patient has any problems. 9. Watching and losing weight. 10. Prescription for Mirapex 0.125 mg 2 tablets at bedtime. Thank you very much for allowing me to participate in the management of your patient. Vince Gonzales MD, PhD, FAASM. Diplomat of [place] [employer], Sleep Medicine Board by [place] [employer] Business Systems Advisor of [facility] [place]
== END ==
LOC: SLEEP 11:20
PROVIDERS: ATTEND Internal Medicine
DX: G47.33 Obstructive sleep apnea (adult) (pediatric) (principal); E66.9 Obesity, unspecified; G47.61 Periodic limb movement disorder; I10 Essential (primary) hypertension; E11.9 Type 2 diabetes mellitus without complications; Z86.59 Personal history of other mental and behavioral disorders; Z90.89 Acquired absence of other organs; Z98.51 Tubal ligation status; Z99.89 Dependence on other enabling machines and devices; Z79.84 Long term (current) use of oral hypoglycemic drugs
CPT/HCPCS: 99212

== ENCOUNTER → 2022-09-19 | Outpatient (CLI) | payer MEDICARE, OTHER ==
--- NOTE | 2022-09-19 11:45 | P.PN ---
Subjective DATE: 09/19/2022 FOLLOW UP VISIT. Patient with obstructive sleep apnea hypopnea syndrome return to sleep center for follow-up visit. Information from previous visit have been reviewed. Patient is using PAP equipment every night for the whole night, getting PAP supplies in time. The patient does not have significant problems with the mask, PAP unit and humidification. Patient complaining of symptoms of excessive daytime sleepiness. [place] sleepiness scale is in very high range today at 20. I checked information from PAP unit. PAP unit pressure 5-12, average 7.4 cm H2O. Usage is 100 % for more then 4 hours, average 7.5 hours per night. Leak is 12.0 l/m, which is in acceptable range. Apnea Hypopnea Index is 0.4, which is normal. MEDICATIONS:1. Atorvastatin 80 mg once a day 2. Benazepril 20 mg once a day 3. Hydrocortisone 4. Aspirin 5. Omeprazole 40 mg once a day 6. Metformin 500 mg twice a day 7. Pilocarpine 5 mg twice a day 8. Pramipexole 0.125 mg 2 tablets at night During physical exam: GENERAL: A pleasant patient without any distress. VITAL SIGNS: BP 137/81, HR 108, RR 18 , weight 229, temperature 98.4, oxygen saturation at room air 97 % . HEENT: PERRLA, EOMI.low position of soft palate, Mallapati 4 . NECK: Supple. No JVD. LUNGS: Clear to percussion and to auscultation. Good air exchange. No wheezing or rhonchi. HEART: S1, S2 regular. ABDOMEN: Soft and nontender. Obese EXTREMITIES: No clubbing or cyanosis. AUTOMOBILE ASSEMBLY SUPERVISOR: Awake, alert, and oriented x3. No focal deficit. Impressions: 1. Obstructive sleep apnea-hypopnea syndrome. Patient demonstrated great compliance with treatment, benefiting from treatment. 2. Patient presents with symptoms of significant excessive daytime sleepiness with [place] Sleepiness Scale of 20. Differential diagnosis include additional diagnosis of hypersomnia. 3. Periodic limb movements, patient is on treatment with the pramipexole. 4. Hypertension. 5. Obesity. 6. Diabetes mellitus. 7. History of depression. 8. Status post tonsillectomy. 9. Status post tubal ligation. Plan: 1. Continue using PAP equipment every night for the whole night. 2. Multiple sleep latency test for objective evaluation patient's symptoms of significant excessive daytime sleepiness. This would be done after night on CPAP treatment. 3. PAP unit should stay lower then position of the head. 4. Advised patient to remove all remaining water from humidifier canister daily and make it dry after each usage. Refill canister with fresh distilled water before each usage. 5. Sleep hygiene with regular time in bed for at least 8 hours. 6. Precautions related to driving. No driving if feel any sleepiness. 7. I will maintain prescription for PAP supplies including mask, tube, filters. 8. Watching and losing weight. 9. Follow up visit after M SLT to discuss results of the test and following plan. Thank you very much for allowing me to participate in the management of your patient. Vince Gonzales MD, PhD, FAASM. Diplomat of [place] [employer], Sleep Medicine Board by [place] [employer] Cardroom Attendant of [facility] [place]
== END ==
LOC: 3 N SLEEP 10:52
PROVIDERS: ATTEND Internal Medicine
DX: G47.33 Obstructive sleep apnea (adult) (pediatric) (principal); E11.9 Type 2 diabetes mellitus without complications; E66.9 Obesity, unspecified; I10 Essential (primary) hypertension; F32.A Depression, unspecified; G47.61 Periodic limb movement disorder; Z98.890 Other specified postprocedural states; Z98.51 Tubal ligation status; Z99.89 Dependence on other enabling machines and devices; Z79.84 Long term (current) use of oral hypoglycemic drugs
CPT/HCPCS: 99212

== ENCOUNTER → 2022-10-25 | Outpatient (CLI) | payer MEDICARE, OTHER ==
--- NOTE | 2022-10-25 13:41 | P.PN ---
Subjective DATE: 10/25/2022 FOLLOW UP VISIT. Patient returned to sleep center for follow-up visit to discuss results of multiple sleep latency test. I discuss results of sleep studies with patient in details. During the night before multiple sleep latency test patient was on CPAP in our office in the pressure of CPAP was in the range between 7 and 9. This regimen of pressure total apnea hypopnea index for the whole night was only 0.5, which is absolutely normal. Sleep efficiency was in high range 95.8%. M SLT on the following day consisted from 5 naps patient fell asleep only on ferrous nap the sleep latency 8 minutes and did not fell asleep on other for naps. Subsequently test did not indicate significant sleepiness during the day Patient continued to use her CPAP equipment every night for the whole night without problems. [place] sleepiness scale is 12.. MEDICATIONS:1. Metformin 500 mg twice a day 2. Omeprazole 40 mg once a day 3. Benazepril 20 mg once a day 4. Atorvastatin 80 mg once a day 5. Pilocarpine 5 mg twice a day 6. Pramipexole During physical exam: GENERAL: A pleasant patient without any distress. VITAL SIGNS: BP 135/52, HR 106, RR 18 , weight 225.4, temperature 98.5, oxygen saturation at room air 100% . HEENT: PERRLA, EOMI. NECK: Supple. No JVD. LUNGS: Clear to percussion and to auscultation. Good air exchange. No wheezing or rhonchi. HEART: S1, S2 regular. ABDOMEN: Soft and nontender. EXTREMITIES: No clubbing or cyanosis. HOSPITAL EDUCATOR: Awake, alert, and oriented x3. No focal deficit. Impressions: 1. Obstructive sleep apnea-hypopnea syndrome, CPAP titration demonstrated normal respiration on CPAP. 2. Multiple sleep latency test did not confirm excessive daytime sleepiness.. 3. No significant periodic limb movements during the recent test, but patient is on treatment with pramipexole. 4. Diabetes mellitus. 5. Obesity. 6. History of depression. 7. Status post tonsillectomy. 8. Status post tubal ligation. Plan: 1. Patient will continue treatment with AutoPAP every night for the whole night. 2. Sleep hygiene with regular time in bed for at least 8 hours. 3. Losing weight 4. Precautions related to driving. No driving if feel any sleepiness. Patient is aware about civil and criminal liability for unsafe driving, promised to follow recommendations. 5. Follow up visit in 4-6 months or earlier if patient has any problems. Thank you very much for allowing me to participate in the management of your patient. Vince Gonzales MD, PhD, FAASM. Diplomat of [place] [employer] Medicine, Sleep Medicine Board by [place] [employer] Medicine Dubbing Machine Operator of [facility] [place]
== END ==
LOC: 3 N SLEEP 13:03
PROVIDERS: ATTEND Internal Medicine
DX: G47.33 Obstructive sleep apnea (adult) (pediatric) (principal); E11.9 Type 2 diabetes mellitus without complications; E66.9 Obesity, unspecified; F32.A Depression, unspecified; Z79.84 Long term (current) use of oral hypoglycemic drugs; Z98.890 Other specified postprocedural states; Z98.51 Tubal ligation status; Z99.89 Dependence on other enabling machines and devices
CPT/HCPCS: 99212

== ENCOUNTER 2023-11-21 09:06 | Inpatient (IN) | payer MEDICARE, OTHER ==
[2023-11-15 10:53] VITALS: BMI 36.8
--- NOTE | 2023-11-20 14:00 | HP ---
HISTORY AND PHYSICAL DATE OF SURGERY: 11/21/2023. HISTORY OF PRESENT ILLNESS: Naty Cross is a patient seen with symptomatic left knee osteoarthritis. We discussed options regarding treatment. She elected to proceed with left total knee arthroplasty. Consent regarding the procedure was obtained. Preoperative medical clearance was provided by Dr. Zhao. PAST MEDICAL HISTORY: Hypertension and hyperlipidemia. PAST SURGICAL HISTORY: Right total knee arthroplasty. DAILY MEDICATIONS: Antihypertensive. ALLERGIES: None reported. SOCIAL HISTORY: She denies tobacco use. PHYSICAL EVALUATION OF THE LEFT KNEE: Range of motion is -1 to 125 degrees. Moderate effusion. Tenderness along the medial and lateral joint lines, crepitus, medial patellofemoral compartments. Ligaments stable. Hip rotation without pain. Distal neurovascular exam is intact. IMAGING STUDIES: Radiographs of the left knee revealed severe osteoarthritic changes. IMPRESSION: 1. Left knee osteoarthritis. 2. Hypertension. PLAN: Left total knee arthroplasty. MMODL / IJN: [id number] /
[~2023-11-21 09:06] MED LIST changes: -DEXAMETHASONE SOD PHOSPHATE 4 MG/ML 1 ML VIAL IV ONE; -LIDOCAINE 1% (10MG/ML) FOR IV START INTRADERMA PRN; -ONDANSETRON 4 MG/2 ML VIAL IVP ONE; +TRANEXAMIC 1,000 MG/100ML-NACL 1,000 MG in SALINE 1 100ML.BAG IVPB PRN
[2023-11-21 09:39] LABS: Glucose,Whole Blood 115 mg/dL (70-110)
[2023-11-21] MEDS: ACETAMINOPHEN TAB 500 MG TAB PO PRN (09:39)
[2023-11-21] MEDS: LACTATED RINGERS 1,000 ML IV SCH ×2 (09:39→13:19)
[2023-11-21] MEDS: DEXAMETHASONE SOD PHOSPHATE 4 MG/ML 1 ML VIAL IV ONE (09:39)
[2023-11-21] MEDS: MELOXICAM 7.5 MG TAB PO PRN (09:39)
[2023-11-21] MEDS: ONDANSETRON 4 MG/2 ML VIAL IVP ONE (09:39)
[2023-11-21] MEDS: IV FLUID CONTINUATION 1,000 ML IV ONE (09:43)
[2023-11-21] MEDS: MIDAZOLAM 2 MG/2 ML VIAL IV ONE (09:49)
[2023-11-21] MEDS ORDERED: LIDOCAINE 1% INJ 10MG/ML (20 ML MDV) ONE (10:14)
[2023-11-21] MEDS ORDERED: DEXAMETHASONE SOD PHOSPHATE 4 MG/ML 1 ML VIAL ONE (10:14)
[2023-11-21] MEDS ORDERED: ROCURONIUM 10 MG/ML (5 ML VIAL) IV ONE (10:14)
[2023-11-21] MEDS ORDERED: HYDROmorphone (PF) 1 MG/ML ONE (10:14)
[2023-11-21] MEDS ORDERED: fentaNYL (PF) 50 MCG/ML 2 ML AMP ONE (10:14)
[2023-11-21] MEDS ORDERED: PROPOFOL 10 MG/ML 20 ML VIAL IV ONE (10:14)
[2023-11-21] MEDS ORDERED: GLYCOPYRROLATE 0.2 MG/ML 2 ML VIAL ONE (10:14)
[2023-11-21] MEDS ORDERED: KETAMINE HCL IN 0.9 % NACL 50 MG/5 ML SYRINGE ONE (10:14)
[2023-11-21] MEDS ORDERED: SUCCINYLCHOLINE CHLORIDE 200 MG/10 ML VIAL IV ONE (10:14)
[2023-11-21] MEDS ORDERED: NEOSTIGMINE 1 MG/ML 10 ML VIAL ONE (10:14)
[2023-11-21] MEDS ORDERED: TRANEXAMIC 1,000 MG/100ML-NACL PREMIX BAG ONE (10:14)
[2023-11-21] MEDS ORDERED: SODIUM CHLORIDE 0.9% (PF) 10 ML VIAL ONE (10:14)
[2023-11-21] MEDS ORDERED: ROPIVACAINE 5 MG/ML 30 ML VIAL ONE (10:14)
[2023-11-21] MEDS: ceFAZolin 1,000 MG in SODIUM CHLORIDE 0.9% 1,000 ML IRRIGATION ONE (10:47)
[2023-11-21] MEDS ORDERED: HYDROmorphone 0.5 MG/0.5 ML SYRINGE IVP PRN ×2 (11:53)
[2023-11-21] MEDS ORDERED: ONDANSETRON 4 MG/2 ML VIAL IVP PRN (11:53)
[2023-11-21] MEDS ORDERED: HYDROcodone/APAP 5-325MG 1 EACH TAB PO PRN (11:53)
[2023-11-21] MEDS ORDERED: NALOXONE 0.4 MG/ML 1 ML VIAL IV PRN (11:53)
--- NOTE | 2023-11-21 11:53 | P.OP ---
Date of Procedure: 11/21/23 Preoperative Diagnosis: Left knee osteoarthritis Postoperative Diagnosis: Left knee osteoarthritis Procedure(s) Performed: Left total knee arthroplasty Implants: 1. DePuy attune size 4 narrow left cruciate retaining cemented femur 2. DePuy attune size 4 fixed-bearing cemented tibial baseplate 3. DePuy attune size 4 fixed-bearing cruciate retaining 10 mm polyethylene tibial insert 4. DePuy attune 32 mm all polyethylene cemented patella Anesthesia: GETA, regional (Adductor canal catheter, iPAQ block) Surgeon: Дмитрий Mckeon Clinical Therapist #1: Rc Fuentes Estimated Blood Loss (ml): 45 Pathology: none sent Condition: stable Disposition: PACU Indications for Procedure: 68-year-old patient seen with progressive symptomatic left knee osteoarthritis. After treatment options were discussed, she elected to proceed with total knee arthroplasty. Operative Findings: See description of procedure Description of Procedure: Patient was taken to the operative suite after having an adductor canal catheter placed by the department of anesthesia. Patient underwent a general anesthetic by the department of anesthesia. Patient was given preoperative IV intake antibiotics and TXA. A well-padded tourniquet was placed about the left lower extremity. The lower extremity was then prepped and draped in the normal sterile orthopedic fashion. The extremity was elevated, a tourniquet was insufflated to 300. A standard anterior incision was made sharply through skin. Dissection was taken down through the subcutaneous soft tissues down to the extensor mechanism. A medial arthrotomy was performed, patella was everted and knee was flexed. There was advanced osteoarthritis noted. I introduced my distal intramedullary femoral drill. I then introduced the distal femoral cutting jig. Juaquin DRAKE secured the cutting jig with 2 pins. I held retractors in position while Juaquin DRAKE performed the distal femoral resection through the guide area we now removed her distal femoral cutting guide. We now placed our 4-in-1 femoral cutting block and positioned and it was secured with 2 pins by Juaquin DRAKE while I held the block in position. The distal femoral finishing was now completed. A proximal tibial cutting guide was positioned. I held the guide in the appropriate position with both hands well Juaquin DRAKE inserted stabilizing pins into the guide. Proximal tibial cut was made. We now placed a trial femoral component into position, along with an appropriate size tibial tray and insert. We now took the knee through range of motion and had full extension good flexion and good overall soft tissue balance noted. The patella was everted and stabilized with 2 towel clips held by Juaquin DRAKE while I performed a flush with patellar quad tendon utilizing a fresh sawblade. We templated the patella, appropriate drill holes were made. An appropriate trial patella was positioned, knee was taken through full range of motion with the patella tracking very nicely. The trial patella was removed. Drill holes were made through the femoral component. All trial components were removed after marking off the appropriate rotation of the tibia. Retractors were now positioned along the proximal tibia. An appropriate keel punch was made with the appropriate size tibial guide by myself on Juaquin DRAKE assisted by holding retractors. At this point appropriate size implants were chosen and opened. The joint was irrigated copiously with pulse lavage mechanical irrigation. The wound was irrigated with pulse lavage mechanical irrigation. We mixed antibiotic methylmethacrylate. We placed the knee into flexion. We placed multiple retractors assisted by Juaquin DRAKE to expose the proximal tibia. Once the methyl methacrylate was ready, the tibial component was cemented into place removing any excess methylmethacrylate form by both myself and Juaquin DRAKE. The femoral component was cemented into place removing the removing any excess methylmethacrylate performed by both myself and Juaquin DRAKE. We then inserted the appropriate size polyethylene tibial insert. We made sure that it was locked into position. We took the knee into full extension, and then back in a flexion making sure we had removed any excess methylmethacrylate. The patellar component was then cemented down and secured with clamp. Excess methylmethacrylate removed. We kept the knee in full extension, patellar clamp in position until methylmethacrylate had hardened. Once it had hardened the patellar clamp was removed. The knee was taken through full range of motion. The patella tracked nicely. There was good soft tissue balancing. The tourniquet was now released. Additional hemostasis was achieved via electrocautery. A second gram of TXA was given. The wound again was irrigated with pulse lavage mechanical irrigation. The extensor mechanism was repaired with Ethibond suture. We checked the repair with range of motion and it was stable. The subcutaneous soft tissues were repaired with Vicryl in layers. The skin was approximated with pernio/Dermabond. Sterile dressings were applied followed by loose web roll and Elton bandage. The patient was transferred to a bed, and taken to recovery in stable and satisfactory condition. Juaquin DRAKE assisted with this complex procedure.
[2023-11-21] MEDS: LACTATED RINGERS 1,000 ML IV ONE (11:56)
--- NOTE | 2023-11-21 12:44 | XR ---
EXAMINATION TYPE: XR knee limited LT DATE OF EXAM: 11/21/2023 COMPARISON: NONE TECHNIQUE: Two views submitted HISTORY: Post op FINDINGS: There is a prosthetic knee in near anatomic alignment. There is soft tissue edema and soft tissue e mphysema/air compatible with recent surgery. Soft tissue calcification. Soft tissue calcification. IMPRESSION: 1. Postoperative change. Appears in near-anatomic alignment
[2023-11-21] MEDS: HYDROmorphone 0.5 MG/0.5 ML SYRINGE IVP PRN ×2 (12:48→20:24)
[2023-11-21] MEDS: ROPIVACAINE 1,100 MG, SODIUM CHLORIDE 0.9% 500 ML 330 ML, EMPTY PAIN BALL 1 EACH MISCELLANE PRN (13:04)
--- NOTE | 2023-11-21 16:12 | P.ANPRN ---
Procedure Note - Anesthesia - Nerve Block Performed Left Adductor Canal Infusion Time Out Performed: Yes Date of Procedure: 11/21/23 Procedure Start Time: 08:30 Procedure Stop Time: 08:40 Location of Patient: PreOp Indication: Acute Post-Operative Pain, Analgesia, Dx/Pain Location (Left Knee Pain ), Requested by Surgeon Sedation Type: Sedate with meaningful contact maintained Preparation: Sterile Prep Position: Supine Catheter: Indwelling Needle Types: Pajunk Needle Gauge: 21 Ultrasound used to visualize needle placement: Yes Ultrasound used to observe medication spread: Yes Injectate: 0.5% Ropivacaine (see comment for volume) Blood Aspirated: No Pain Paresthesia on Injection Noted: No Resistance on Injection: Normal Image Stored and Saved: Yes Events: Uneventful and Well Tolerated
--- NOTE | 2023-11-21 16:13 | P.ANPRN ---
Procedure Note - Anesthesia - Nerve Block Performed Left iPack Single Time Out Performed: Yes Date of Procedure: 11/21/23 Procedure Start Time: 08:41 Procedure Stop Time: 08:45 Location of Patient: PreOp Indication: Acute Post-Operative Pain, Analgesia, Dx/Pain Location (Left Knee Pain ), Requested by Surgeon Sedation Type: Sedate with meaningful contact maintained Preparation: Sterile Prep Position: Left Lateral Catheter: None Needle Types: Pajunk Needle Gauge: 21 Ultrasound used to visualize needle placement: Yes Ultrasound used to observe medication spread: Yes Injectate: Other (see comment) (15ml 0.25% Ropivacaine) Blood Aspirated: No Pain Paresthesia on Injection Noted: No Resistance on Injection: Normal Image Stored and Saved: Yes Events: Uneventful and Well Tolerated
[2023-11-21 16:44] LABS: Glucose,Whole Blood 184 mg/dL (70-110)
[2023-11-21] MEDS: HYDROcodone/APAP 7.5-325MG 1 EACH TAB PO PRN (17:08)
[2023-11-21] MEDS: SENNOSIDES-DOCUSATE SODIUM 1 EACH TAB PO SCH (20:02)
[2023-11-21] MEDS: ASPIRIN 325 MG TAB PO SCH (20:02)
[2023-11-21 20:48] LABS: Glucose,Whole Blood 169 mg/dL (70-110)
--- NOTE | 2023-11-22 04:57 | P.PN ---
Progress Note - Text Progress Note Date: 11/22/23 68 yo female s/p Left TKA s/p Left adductor canal catheter. Patient doing well, tolerating diet. No overnight events. VSS VAS 3/10 in severity, slightly increased with movement. dressing is clean dry and intact. No paresthesia's noted Catheter site looks intact with no leaking Patient doing well from an anesthesia standpoint
[2023-11-22 05:56] LABS: Glucose,Whole Blood 127 mg/dL (70-110)
[2023-11-22 06:41] LABS: Basophils % (A) 0 %; Eosinophils % (A) 0 %; HGB 11.5 gm/dL (11.4-16.0); Hypochromasia Slight; Lymphocytes # (A) 2.8 k/uL (1.0-4.8); Lymphocytes % (A) 23 %; MCH 30.9 pg (25.0-35.0); MCV 96.6 fL (80.0-100.0); Mean Platelet Volume 7.2; Monocytes # (A) 1.2 k/uL (0-1.0); Monocytes % (A) 10 %; Neutrophils % (A) 65 %; Platelet Count 371 k/uL (150-450); RBC 3.73 m/uL (3.80-5.40); RDW 12.9 % (11.5-15.5); WBC 12.2 k/uL (3.8-10.6)
[2023-11-22 07:40] VITALS: RESP 16
[2023-11-22] MEDS: MULTIVITAMINS, THERA 1 EACH TAB PO SCH (09:40)
[2023-11-22 11:47] LABS: Glucose,Whole Blood 139 mg/dL (70-110)
--- NOTE | 2023-11-22 16:14 | P.PN ---
Subjective Progress Note Date: 11/22/23 Principal diagnosis: Status post left total knee arthroplasty Patient evaluated at bedside, she is resting comfortably in her hospital bed. She did do well with therapy. She was unable to do stairs today. She has been using the IV pain medication sparingly. She denies headaches, lightheadedness, chest pain or shortness of breath Objective - Vital Signs Vital signs: Vital Signs Temp 98.2 F 11/22/23 14:04 Pulse 96 11/22/23 14:04 Resp 16 11/22/23 14:04 BP 112/69 11/22/23 14:04 Pulse Ox 96 11/22/23 14:04 FiO2 Intake & Output 11/21/23 11/22/23 11/22/23 18:59 06:59 18:59 Intake Total 1351 Output Total 445 450 Balance 906 -450 Weight 94.8 kg Intake: IV 1351 Output: Urine 400 450 Estimated Blood Loss 45 Other: Voiding Method Toilet - Exam Left lower left lower extremity: Incision is clean, dry, and intact. The foam tape is in good condition. There is minimal soft tissue swelling and ecchymosis surrounding the medial and lateral aspects of the incision. Calf is soft, no tenderness with palpation. Plantar flexion, dorsiflexion, EHL, FHL are intact. Sensory exam to light touch throughout the extremity is intact, dorsal pedis pulses 2+. - Labs CBC & Chem 7: 11/22/23 05:39 Labs: Abnormal Lab Results - Last 24 Hours (Table) 11/21/23 11/21/23 11/22/23 Range/Units 16:43 20:46 05:39 WBC 12.2 H (3.8-10.6) k/uL RBC 3.73 L (3.80-5.40) m/uL Neutrophils # 8.0 H (1.3-7.7) k/uL Monocytes # 1.2 H (0-1.0) k/uL POC Glucose (mg/dL) 184 H 169 H (70-110) mg/dL 11/22/23 11/22/23 Range/Units 05:54 11:46 WBC (3.8-10.6) k/uL RBC (3.80-5.40) m/uL Neutrophils # (1.3-7.7) k/uL Monocytes # (0-1.0) k/uL POC Glucose (mg/dL) 127 H 139 H (70-110) mg/dL Assessment and Plan Assessment: Postoperative day #1 status post left total knee arthroplasty Plan: Pain control, continue with current medications try to limit Dilaudid VT prophylaxis, continue current medications Encourage incentive spirometer Wound care instructions discussed, this to include icing and elevating Medical recommendations appreciated Planning: Plan to discharge patient to home with home health care on 11/23/2023 Time with Patient: Less than 30
[2023-11-22 16:38] LABS: Glucose,Whole Blood 214 mg/dL (70-110)
[2023-11-22] MEDS: lisinopriL 10 MG TAB PO SCH (20:47)
[2023-11-22] MEDS: ARTIFICIAL TEARS-HYPROMELLOSE DROPS 15 ML BTL BOTH EYES SCH (20:47)
[2023-11-22] MEDS: PRAMIPEXOLE 0.25 MG TAB PO SCH (20:47)
[2023-11-22] MEDS: PILOCARPINE 5 MG TAB PO SCH (20:47)
[2023-11-22] MEDS: LATANOPROST 0.005% OPHTH DROPS 2.5 ML BTL BOTH EYES SCH (20:47)
[2023-11-22] MEDS ORDERED: NON FORMULARY DRUG (Aspirin Ec 81 MG Tablet.Dr) PO SCH (21:00)
[2023-11-22 21:23] LABS: Glucose,Whole Blood 200 mg/dL (70-110)
--- NOTE | 2023-11-22 22:30 | PN ---
PROGRESS NOTE CHIEF COMPLAINT: Status post total left knee. HISTORY OF PRESENT ILLNESS: This lady is doing well. She has some discomfort, but she has had no chest pain, shortness of breath, fever, chills, etc. OBJECTIVE: VITAL SIGNS: Normal. CHEST: Clear. CARDIAC: Normal. ABDOMEN: Soft, nontender. IMPRESSION: Status post left total knee. PLAN: Resume her home medications. Then, follow while she is in the hospital. It is expected that she will go home tomorrow. MMODL / IJN: [id number] /
--- NOTE | 2023-11-23 00:10 | CONS ---
CONSULTATION CHIEF COMPLAINT: Osteoarthritis of left knee. HISTORY OF PRESENT ILLNESS: This is another admission for this 68-year-old female who comes in for an elective left TKA. REVIEW OF SYSTEMS: She has had no recent fever, chills, headache, chest pain, shortness of breath, abdominal pain, urinary complaints, etc. Past medical history, family history, personal and social histories are all otherwise unremarkable and noncontributory and/or found in her admitting summary. PHYSICAL EXAMINATION: VITAL SIGNS: Normal. HEAD, EARS, EYES, NOSE, MOUTH, AND THROAT: Normal. CHEST: Clear. CARDIAC: Normal, in sinus rhythm. ABDOMEN: Soft, nontender. EXTREMITIES: Normal except for the left knee arthritis. NEUROLOGICAL: Intact. IMPRESSION: Osteoarthritis of the left knee. RECOMMENDATIONS: None. Thank you, respectfully. MMODL / IJN: [id number] /
[2023-11-23 05:29] LABS: Glucose,Whole Blood 152 mg/dL (70-110)
[2023-11-23] MEDS: PANTOPRAZOLE 40 MG TABLET PO SCH (07:25)
[2023-11-23] MEDS: ASCORBIC ACID 500 MG TAB PO SCH (07:26)
[2023-11-23 08:26] VITALS: BP 145/96; PULSE 94; TEMP 98.8
--- NOTE | 2023-11-23 10:14 | P.PN ---
Subjective Progress Note Date: 11/23/23 Principal diagnosis: Status post left total knee arthroplasty Patient evaluated at bedside, she is resting comfortably in her hospital bed. Patient is doing a lot better today with regards to range of motion and pain control. She denies headaches, lightheadedness, chest pain or shortness of breath Objective - Vital Signs Vital signs: Vital Signs Temp 98.8 F 11/23/23 07:23 Pulse 94 11/23/23 07:23 Resp 16 11/23/23 07:23 BP 145/96 11/23/23 07:23 Pulse Ox 96 11/23/23 07:23 FiO2 Intake & Output 11/22/23 11/23/23 11/23/23 18:59 06:59 18:59 Output Total 450 1000 Balance -450 -1000 Output: Urine 450 1000 Other: Voiding Method Toilet - Exam Left lower left lower extremity: Incision is clean, dry, and intact. The foam tape is in good condition. There is minimal soft tissue swelling and ecchymosis surrounding the medial and lateral aspects of the incision. Calf is soft, no tenderness with palpation. Plantar flexion, dorsiflexion, EHL, FHL are intact. Sensory exam to light touch throughout the extremity is intact, dorsal pedis pulses 2+. - Labs CBC & Chem 7: 11/22/23 05:39 Labs: Abnormal Lab Results - Last 24 Hours (Table) 11/22/23 11/22/23 11/22/23 Range/Units 11:46 16:37 21:21 POC Glucose (mg/dL) 139 H 214 H 200 H (70-110) mg/dL 11/23/23 Range/Units 05:27 POC Glucose (mg/dL) 152 H (70-110) mg/dL Assessment and Plan Assessment: Postoperative day #2 status post left total knee arthroplasty Plan: Pain control, plan for discharge home on oral medications DVT prophylaxis, aspirin 81 mg twice daily for 30 days Encourage incentive spirometer Wound care instructions discussed, this to include icing and elevating Medical recommendations appreciated Planning: Stable for discharge home today Time with Patient: Less than 30
--- NOTE | 2023-11-23 10:16 | P.DS ---
Providers Date of admission: 11/22/23 13:12 Attending physician: Дмитрий Mckeon Consults: 11/21/23 11:53 Consult Physician Routine Consulting Provider: Norberto Dumont Reason/Comments: Medical management Do you want consulting provider notified?: Yes Primary care physician: Norberto Dumont Hospital Course: Date of admission: 11/21/2023 Date of discharge: 11/22/2023 Admission diagnosis: Status post left total knee arthroplasty Discharge diagnosis: Same Attending physician: Dr. Mckeon Surgical procedures: Left total knee arthroplasty Brief history: Patient is a 68-year-old female with a history of progressive primary left knee osteoarthritis. At this point patient has failed conservative treatment measures and has opted to proceed with a elective left total knee arthroplasty. Hospital course: Details of patient's surgery can be found in operative report. Patient tolerated the procedure well and was subsequently transported to orthopedic floor. Patient's orthopeidc and medical care was provided daily. Patient had daily laboratory tests performed for evaluation of overall blood counts. Patient had daily physical therapy to include strengthening range of motion as well as education with walker ambulation. Patient was treated with aspirin for their postoperative DVT prophylaxis during their inpatient stay. Patient was noted to have a relatively uneventful postoperative course. Patient reported satisfactory pain control with oral pain medications by postoperative day 1. Patient showed satisfactory progress with physical therapy. Patient moved steadily through the program and had no difficulty meeting the goals by postoperative day 2. Given patient's otherwise satisfactory course and having met physical therapy goals, plan is to discharge patient home on postoperative day 2. Discharge condition/disposition: Patient will be discharged home in stable condition. Discharge medications: Instructions are given on resumption of patient's normal daily medications per primary care recommendation, in addition patient will be prescribed Rutherford 7.5 mg / 325 mg, senna S, aspirin 81 mg. Discharge instructions: 1. Wound care and infection precautions, keep incision dry and covered while showering, no lotions, creams, moisturizers. No soaking, tubs, pools, hottubs. Do not scrub over the incision. 2. Weight-bear as tolerated with walker / cane until follow-up. 3. Ice and elevate when necessary. Do not exceed 20 minutes per hour with ice pack. 4. Utilize compression sleeve until seen at first follow up appointment. 5. Visiting nursing care. 6. Home physical therapy including home CPM. 7. Pain meds and anticoagulants per prescription. 8. Pain medication has potential to cause constipation. Increase oral fluid and fiber intake. Contact primary care provider if you have not had a bowel movement within 48 hours after discharge 9. No anti-inflammatory medication until discussed at first post operative visit, this including Motrin, Aleve, Mobic, Diclofenac. 10. Follow up in office at 2 weeks postop with Juaquin Fuentes PA-C/Jovan Shaffer 11. Follow up with your primary care doctor 7-10 days after discharge. 12. Contact [facility] with any questions, . Procedures: Left total knee arthroplasty Patient Condition at Discharge: Good Plan - Discharge Summary Discharge Rx Participant: Yes New Discharge Prescriptions: New Aspirin [Adult Low Dose Aspirin EC] 81 mg PO BID #60 tab HYDROcodone/APAP 7.5-325MG [Rutherford 7.5] 1 each PO Q6HR PRN #28 tab PRN Reason: Pain Sennosides/Docusate Sodium [Senna-S 8.6-50 mg Tablet] 2 each PO DAILY PRN #30 tablet PRN Reason: Constipation No Action Atorvastatin [Lipitor] 80 mg PO HS Aspirin EC [Ecotrin Low Dose] 81 mg PO HS Ergocalciferol [Vitamin D2 (DRISDOL)] 50,000 unit PO Q30D Pilocarpine HCl [Salagen] 5 mg PO BID Omeprazole [PriLOSEC] 40 mg PO DAILY Loratadine [Claritin] 10 mg PO DAILY traMADol HCL [Ultram] 50 mg PO HS PRN PRN Reason: Pain Latanoprost Ophth [Xalatan 0.005%] 1 drops BOTH EYES HS Nystatin 100,000 Unit/ml Susp [Mycostatin Oral Susp] 1 ml PO QID Benazepril [Lotensin] 10 mg PO HS Ascorbic Acid [Vitamin C] 1,000 mg PO DAILY Multivitamins, Thera [Multivitamin (formulary)] 1 tab PO DAILY Fluticasone Nasal Campbell [Flonase Nasal Campbell] 2 spray EA NOSTRIL DAILY Pramipexole [Mirapex] 0.25 mg PO HS metFORMIN HCL 1,000 mg PO BID Cyanocobalamin [Vitamin B-12] 500 mcg PO DAILY Rewetting Eye Drops 1 drop BOTH EYES BID Empagliflozin [Jardiance] 25 mg PO DAILY Discharge Medication List Aspirin EC [Ecotrin Low Dose] 81 mg PO HS 06/04/15 [History] Atorvastatin [Lipitor] 80 mg PO HS 06/04/15 [History] Ergocalciferol [Vitamin D2 (DRISDOL)] 50,000 unit PO Q30D 07/11/18 [History] Loratadine [Claritin] 10 mg PO DAILY 03/21/20 [History] Omeprazole [PriLOSEC] 40 mg PO DAILY 03/21/20 [History] Pilocarpine HCl [Salagen] 5 mg PO BID 03/21/20 [History] Multivitamins, Thera [Multivitamin (formulary)] 1 tab PO DAILY 04/25/21 [History] traMADol HCL [Ultram] 50 mg PO HS PRN 04/25/21 [History] Fluticasone Nasal Campbell [Flonase Nasal Campbell] 2 spray EA NOSTRIL DAILY 10/22/21 [History] Latanoprost Ophth [Xalatan 0.005%] 1 drops BOTH EYES HS 10/22/21 [History] Nystatin 100,000 Unit/ml Susp [Mycostatin Oral Susp] 1 ml PO QID 10/22/21 [History] Pramipexole [Mirapex] 0.25 mg PO HS 10/22/21 [History] Ascorbic Acid [Vitamin C] 1,000 mg PO DAILY 11/15/23 [History] Benazepril [Lotensin] 10 mg PO HS 11/15/23 [History] Cyanocobalamin [Vitamin B-12] 500 mcg PO DAILY 11/15/23 [History] Empagliflozin [Jardiance] 25 mg PO DAILY 11/15/23 [History] Rewetting Eye Drops 1 drop BOTH EYES BID 11/15/23 [History] metFORMIN HCL 1,000 mg PO BID 11/15/23 [History] Aspirin [Adult Low Dose Aspirin EC] 81 mg PO BID #60 tab 11/23/23 [Rx] HYDROcodone/APAP 7.5-325MG [Rutherford 7.5] 1 each PO Q6HR PRN #28 tab 11/23/23 [Rx] Sennosides/Docusate Sodium [Senna-S 8.6-50 mg Tablet] 2 each PO DAILY PRN #30 tablet 09/07/24 [Rx] Follow up Appointment(s)/Referral(s): [facility] [NON-STAFF] - 1 Week (Call [facility] when you get home and they will deliver your CPM. ) [facility] - [facility] Week ([facility] will call you to arrange a visit) Rc Fuentes, PAC [PHYSICIAN [employer]OR] - 2 Weeks Activity/Diet/Wound Care/Special Instructions: Orthopedic Discharge Instructions: 1. Wound care and infection precautions, keep incision dry and covered while showering, no lotions, creams, moisturizers. No soaking, pools, hot tubs. Do not scrub over incision. 2. Weight-bear as tolerated with walker / cane until follow-up. 3. Ice and elevate when necessary. Do not exceed 20 minutes per hour with ice pack. 4. Utilize compression sleeve until seen at first follow up appointment. 5. Pain meds and anticoagulants per prescription. 6. Pain medication has potential to cause constipation. Increase oral fluid and fiber intake. Contact primary care provider if you have not had a bowel movement within 48 hours after discharge. 7. No anti-inflammatory medication until discussed at first post operative visit, this including Motrin, Aleve, Mobic, Diclofenac. 8. Follow up in office at 2 weeks postop with Juaquin Fuentes PA-C/Jovan Klein PA-C 9. Follow up with your primary care doctor 7-10 days after discharge. 10. Contact [facility] with any questions, . Wound care instructions: 1. Okay to remove surgical dressing as of 11/28/2023 2. Okay to shower directly over the incision after removal of dressing Discharge Disposition: HOME WITH HOME HEALTH SERVICES
[2023-11-23 11:44] LABS: Glucose,Whole Blood 261 mg/dL (70-110)
== END 2023-11-23 13:23 | disposition home health service (06) | DRG 470 ==
LOC: OR 09:06 → 4SSUR 11:57 → OR 11-22 13:12
PROVIDERS: ADMIT Orthopaedic Surgery; ATTEND Orthopaedic Surgery
PROC: 0SRD0J9 Replacement of Left Knee Joint with Synthetic Substitute, Cemented, Open Approach (ICD-10-PCS; principal; 2023-11-21 09:55)
DX: M17.12 Unilateral primary osteoarthritis, left knee (principal); I10 Essential (primary) hypertension; E78.5 Hyperlipidemia, unspecified; Z96.651 Presence of right artificial knee joint

== ENCOUNTER → 2023-12-19 | Outpatient (CLI) | payer MEDICARE, OTHER ==
--- NOTE | 2023-12-19 15:59 | P.PROGSL ---
Subjective DATE: 12/19/2023 FOLLOW UP VISIT. Patient with obstructive sleep apnea hypopnea syndrome return to sleep center for follow-up visit. Information from previous visit have been reviewed. This is first visit after patient received new CPAP unit Patient is using PAP equipment every night for the whole night, getting PAP supplies in time. The patient does not have significant problems with the mask, PAP unit and humidification. [place] sleepiness scale is 8, which is normal. I checked information from PAP unit. PAP unit pressure 4-20, average 6.8 cm H2O. Usage is 98% for more then 4 hours, average 6.8 hours per night. Leak is 13 l/m, which is in acceptable range. Apnea Hypopnea Index is 0.7, which is normal. MEDICATIONS have been reviewed, please see below. During physical exam: GENERAL: A pleasant patient without any distress. VITAL SIGNS: Please see below, weight is 225.4 lbs. HEENT: PERRLA, EOMI.low position of soft palate, Mallapati 3 . NECK: Supple. No JVD. LUNGS: Clear to percussion and to auscultation. Good air exchange. No wheezing or rhonchi. HEART: S1, S2 regular. ABDOMEN: Soft and nontender. Obese EXTREMITIES: No clubbing or cyanosis. GUT SNATCHER: Awake, alert, and oriented x3. No focal deficit. Impressions: 1. Obstructive sleep apnea-hypopnea syndrome. Patient demonstrated great compliance with treatment, benefiting from treatment. 2. Obesity, BMI 39.6, patient lost 15 pounds since previous visit. 3. Diabetes mellitus. 4. History of depression. 5. Status post tonsillectomy. 6. Status post tubal ligation. I adjusted pressure in CPAP unit to the range 4 to 11 cm of water. Plan: 1. Continue using PAP equipment every night for the whole night. 2. Sleep hygiene with regular time in bed for at least 7.5-8 hours 3. PAP unit should stay lower then position of the head. 4. Advised patient to remove all remaining water from humidifier canister daily and make it dry after each usage. Refill canister with fresh distilled water before each usage. 5. Watching and losing weight. 6. Precautions related to driving. No driving if feel any sleepiness. 7. I will maintain prescription for PAP supplies including mask, tube, filters. 8. Follow up visit in 8 months or earlier if patient has any problems. Thank you very much for allowing me to participate in the management of your patient. Vince Gonzales MD, PhD, FAASM. Diplomat of [place] [employer], Sleep Medicine Board by [place] [employer] [facility] cc: Norberto Dumont MD Objective - Vital Signs Vital Signs: Intake & Output 12/18/23 12/19/23 12/19/23 18:59 06:59 18:59 Weight 95.254 kg Home Medications: Home Medications Medication Instructions Recorded Confirmed Type Aspirin EC [Ecotrin Low Dose] 81 mg PO HS 06/04/15 11/21/23 History Atorvastatin [Lipitor] 80 mg PO HS 06/04/15 12/19/23 History Ergocalciferol [Vitamin D2 50,000 unit PO Q30D 07/11/18 11/21/23 History (DRISDOL)] Loratadine [Claritin] 10 mg PO DAILY 03/21/20 12/19/23 History Omeprazole [PriLOSEC] 40 mg PO DAILY 03/21/20 11/21/23 History Pilocarpine HCl [Salagen] 5 mg PO BID 03/21/20 12/19/23 History Multivitamins, Thera [Multivitamin 1 tab PO DAILY 04/25/21 11/21/23 History (formulary)] traMADol HCL [Ultram] 50 mg PO HS PRN 04/25/21 12/19/23 History Fluticasone Nasal [place] [Flonase 2 spray EA NOSTRIL DAILY 10/22/21 11/21/23 History Nasal [place]] Latanoprost Ophth [Xalatan 0.005%] 1 drops BOTH EYES HS 10/22/21 11/21/23 History Nystatin 100,000 Unit/ml Susp 1 ml PO QID 10/22/21 11/21/23 History [Mycostatin Oral Susp] Pramipexole [Mirapex] 0.25 mg PO HS 10/22/21 12/19/23 History Ascorbic Acid [Vitamin C] 1,000 mg PO DAILY 11/15/23 11/21/23 History Benazepril [Lotensin] 10 mg PO HS 11/15/23 11/21/23 History Cyanocobalamin [Vitamin B-12] 500 mcg PO DAILY 11/15/23 11/21/23 History Empagliflozin [Jardiance] 25 mg PO DAILY 11/15/23 12/19/23 History Rewetting Eye Drops 1 drop BOTH EYES BID 11/15/23 11/21/23 History metFORMIN HCL 1,000 mg PO BID 11/15/23 12/19/23 History Aspirin [Adult Low Dose Aspirin EC] 81 mg PO BID #60 tab 11/23/23 12/19/23 Rx HYDROcodone/APAP 7.5-325MG [[place] 1 each PO Q6HR PRN #28 tab 11/23/23 12/19/23 Rx 7.5] Sennosides/Docusate Sodium 2 each PO DAILY PRN #30 tablet 11/23/23 Rx [Senna-S 8.6-50 mg Tablet]
== END ==
LOC: 3 N SLEEP 13:58
PROVIDERS: ATTEND Internal Medicine
DX: G47.33 Obstructive sleep apnea (adult) (pediatric) (principal); E66.9 Obesity, unspecified; E11.9 Type 2 diabetes mellitus without complications; Z98.890 Other specified postprocedural states; Z98.51 Tubal ligation status; Z86.59 Personal history of other mental and behavioral disorders; Z90.89 Acquired absence of other organs; Z68.39 Body mass index [BMI] 39.0-39.9, adult; Z99.89 Dependence on other enabling machines and devices; Z79.85 Long-term (current) use of injectable non-insulin antidiabetic drugs; Z79.84 Long term (current) use of oral hypoglycemic drugs
CPT/HCPCS: 99212

== ENCOUNTER → 2024-02-27 | Outpatient (CLI) | payer MEDICARE, OTHER | END | disposition home or self-care (01) | LOC: LABPAT 11:16 | PROVIDERS: ATTEND Orthopaedic Surgery | DX: Z22.322 Carrier or suspected carrier of Methicillin resistant Staphylococcus aureus (principal) | CPT/HCPCS: 87070 ==

== ENCOUNTER 2024-04-14 10:41 | Inpatient (IN) | payer MEDICARE, OTHER ==
--- NOTE | 2024-04-13 08:13 | P.HPOR ---
History of Present Illness H&P Date: 04/13/24 Chief Complaint: Right shoulder pain The patient is a 68-year-old [id number] retired female who presents with progressive right shoulder pain for the past several years. She is having pain with any attempted overhead activity. She is having night symptoms. She has tried medications, previous injections, and had a previous arthroscopy in 2021. She notes daily pain that limits her. Review of Systems Per HPI Past Medical History Past Medical History: Diabetes Mellitus, Eye Disorder, Hyperlipidemia, Hypertension, Osteoarthritis (OA), Renal Disease, Sleep Apnea/CPAP/BIPAP Additional Past Medical History / Comment(s): Hx. of anemia ,Dry skin, Stage 2 kidney disease. CPAP-TO BRING, PRE GLAUCOMA History of Any Multi-Drug Resistant Organisms: None Reported Past Surgical History: Joint Replacement, Orthopedic Surgery, Tonsillectomy, Tubal Ligation Additional Past Surgical History / Comment(s): bunionectomy left foot and a plate. COLONOSCOPY, EGD, total right knee 03/28/19, R hip replacement. Past Anesthesia/Blood Transfusion Reactions: No Reported Reaction Past Psychological History: No Psychological Hx Reported Additional Psychological History / Comment(s): denies current Smoking Status: Never smoker Past Alcohol Use History: None Reported Past Drug Use History: None Reported - Past Family History Mother Family Medical History: Cancer Additional Family Medical History / Comment(s): breast cancer Brother(s) Family Medical History: Cancer Additional Family Medical History / Comment(s): kidney cancer Son(s) Family Medical History: Cancer Additional Family Medical History / Comment(s): lymphoma Medications and Allergies Home Medications Medication Instructions Recorded Confirmed Type Aspirin EC [Ecotrin Low Dose] 81 mg PO HS 06/04/15 11/21/23 History Atorvastatin [Lipitor] 80 mg PO HS 06/04/15 12/19/23 History Ergocalciferol [Vitamin D2 50,000 unit PO Q30D 07/11/18 11/21/23 History (DRISDOL)] Loratadine [Claritin] 10 mg PO DAILY 03/21/20 12/19/23 History Omeprazole [PriLOSEC] 40 mg PO DAILY 03/21/20 11/21/23 History Pilocarpine HCl [Salagen] 5 mg PO BID 03/21/20 12/19/23 History Multivitamins, Thera [Multivitamin 1 tab PO DAILY 04/25/21 11/21/23 History (formulary)] traMADol HCL [Ultram] 50 mg PO HS PRN 04/25/21 12/19/23 History Fluticasone Nasal [place] [Flonase 2 spray EA NOSTRIL DAILY 10/22/21 11/21/23 History Nasal [place]] Latanoprost Ophth [Xalatan 0.005%] 1 drops BOTH EYES HS 10/22/21 11/21/23 History Nystatin 100,000 Unit/ml Susp 1 ml PO QID 10/22/21 11/21/23 History [Mycostatin Oral Susp] Pramipexole [Mirapex] 0.25 mg PO HS 10/22/21 12/19/23 History Ascorbic Acid [Vitamin C] 1,000 mg PO DAILY 11/15/23 11/21/23 History Benazepril [Lotensin] 10 mg PO HS 11/15/23 11/21/23 History Cyanocobalamin [Vitamin B-12] 500 mcg PO DAILY 11/15/23 11/21/23 History Empagliflozin [Jardiance] 25 mg PO DAILY 11/15/23 12/19/23 History Rewetting Eye Drops 1 drop BOTH EYES BID 11/15/23 11/21/23 History metFORMIN HCL 1,000 mg PO BID 11/15/23 12/19/23 History Aspirin [Adult Low Dose Aspirin EC] 81 mg PO BID #60 tab 11/23/23 12/19/23 Rx HYDROcodone/APAP 7.5-325MG [[place] 1 each PO Q6HR PRN #28 tab 11/23/23 12/19/23 Rx 7.5] Sennosides/Docusate Sodium 2 each PO DAILY PRN #30 tablet 11/23/23 Rx [Senna-S 8.6-50 mg Tablet] Allergies Allergy/AdvReac Type Severity Reaction Status Date / Time No Known Allergies Allergy Verified 11/21/23 08:56 Physical Examination - Shoulder right Tenderness with palpation: anterior Pain: with abduction, with forward flexion ROM: forward flexion: 120 degrees ROM: internal rotation: lower lumbar ROM: external rotation: 50 degrees Crepitus with motion: Yes Strength: abduction: 5/5 Strength: external rotation: 5/5 Tests: internal impingement tests: positive, external impingment tests: positive Results The patient is a well-developed well-nourished female approximately 5 foot 3, 209 pounds of endomorphic habitus. HEENT exam is nonfocal, neck is supple. She has painful active and passive motion of the right shoulder. She is tender about the anterior subacromial space. Moderate crepitus is noted. Quiñones, Neer sign, and Speed test are positive. Her distal neurovascular exam appears intact in the right upper extremity. - Diagnostic results Shoulder x-ray: image reviewed (X-rays of the right shoulder obtained the office show severe glenohumeral joint osteoarthrosis with subchondral sclerosis. The humeral head to acromial distance appears to be maintained.) Assessment and Plan Assessment: Right severe glenohumeral joint osteoarthrosis Plan: I talked to the patient at length regarding her condition along with treatment options. At this point she notes she is quite symptomatic having pain in mechanical symptoms despite conservative measures. After a thorough discussion she opts to proceed with surgery. We will plan to proceed with right total shoulder arthroplasty. Risks and benefits were discussed at length in layman's terms.
[~2024-04-14 10:41] MED LIST changes: +HYDROmorphone 0.5 MG/0.5 ML SYRINGE IVP PRN
[2024-04-14] MEDS: IV FLUID CONTINUATION 1,000 ML IV ONE (11:00)
[2024-04-14 11:50] LABS: Glucose,Whole Blood 135 mg/dL (70-110)
[2024-04-14] MEDS: MELOXICAM 7.5 MG TAB PO PRN (11:50)
[2024-04-14] MEDS: ONDANSETRON 4 MG/2 ML VIAL IVP ONE (11:50)
[2024-04-14] MEDS: ACETAMINOPHEN TAB 500 MG TAB PO PRN (11:50)
[2024-04-14] MEDS: LACTATED RINGERS 1,000 ML IV SCH (11:55)
[2024-04-14] MEDS: DEXAMETHASONE SOD PHOSPHATE 4 MG/ML 1 ML VIAL IV ONE (11:55)
[2024-04-14] MEDS ORDERED: GLYCOPYRROLATE 0.2 MG/ML 2 ML VIAL ONE (12:26)
[2024-04-14] MEDS ORDERED: ROCURONIUM 10 MG/ML (5 ML VIAL) IV ONE (12:26)
[2024-04-14] MEDS ORDERED: LIDOCAINE 1% INJ 10MG/ML (20 ML MDV) ONE (12:26)
[2024-04-14] MEDS ORDERED: fentaNYL (PF) 50 MCG/ML 2 ML AMP ONE (12:26)
[2024-04-14] MEDS ORDERED: SUCCINYLCHOLINE CHLORIDE 200 MG/10 ML VIAL IV ONE (12:26)
[2024-04-14] MEDS ORDERED: NEOSTIGMINE 1 MG/ML 10 ML VIAL ONE (12:26)
[2024-04-14] MEDS ORDERED: ROPIVACAINE 5 MG/ML 30 ML VIAL ONE (12:26)
[2024-04-14] MEDS ORDERED: TRANEXAMIC 1,000 MG/100ML-NACL PREMIX BAG ONE (12:26)
[2024-04-14] MEDS ORDERED: DEXAMETHASONE SOD PHOSPHATE 4 MG/ML 1 ML VIAL ONE (12:26)
[2024-04-14] MEDS ORDERED: PHENYLEPHRINE 10 MG/ML VIAL ONE (12:26)
[2024-04-14] MEDS ORDERED: PROPOFOL 10 MG/ML 20 ML VIAL IV ONE (12:26)
[2024-04-14] MEDS: MIDAZOLAM 2 MG/2 ML VIAL IV ONE (12:33)
--- NOTE | 2024-04-14 12:36 | P.ANPRN ---
Procedure Note - Anesthesia - Nerve Block Performed Right Interscalene Time Out Performed: Yes Date of Procedure: 04/14/24 Procedure Start Time: 12:12 Procedure Stop Time: 12:17 Location of Patient: PreOp Indication: Acute Post-Operative Pain, Analgesia, Dx/Pain Location (Right [place] pain ), Requested by Surgeon Sedation Type: Sedate with meaningful contact maintained Preparation: Sterile Prep Position: Supine Needle Types: Pajunk Needle Gauge: Other (see comment) (22 G) Ultrasound used to visualize needle placement: Yes Ultrasound used to observe medication spread: Yes Injectate: 0.5% Ropivacaine (see comment for volume) Blood Aspirated: No Pain Paresthesia on Injection Noted: No Resistance on Injection: Normal Image Stored and Saved: Yes Events: Uneventful and Well Tolerated
[2024-04-14] MEDS: ceFAZolin 1,000 MG in SODIUM CHLORIDE 0.9% 1,000 ML IRRIGATION ONE (13:01)
[2024-04-14] MEDS: LACTATED RINGERS 1,000 ML IV ONE (13:52)
[2024-04-14] MEDS ORDERED: hydrOXYzine pamoate 25 MG CAP PO PRN (14:33)
[2024-04-14] MEDS ORDERED: HYDROmorphone 0.5 MG/0.5 ML SYRINGE IVP PRN (14:33)
[2024-04-14] MEDS ORDERED: HYDROcodone/APAP 5-325MG 1 EACH TAB PO PRN (14:33)
--- NOTE | 2024-04-14 14:54 | P.OP ---
Date of Procedure: 04/14/24 Preoperative Diagnosis: Right severe glenohumeral joint osteoarthrosis Postoperative Diagnosis: Same Procedure(s) Performed: Right total shoulder arthroplasty Implants: DePuy Inhance size medium press-fit stemless humeral component, 42 x 14.5 mm humeral head, small cemented glenoid component. Anesthesia: CORINE [facility] Surgeon: Brannon Reddy Digital Solution Architect #1: Jovan Klein Estimated Blood Loss (ml): 200 Pathology: none sent Condition: stable Disposition: PACU Indications for Procedure: The patient is a 68-year-old female who presents with progressive right shoulder pain secondary to osteoarthrosis despite conservative measures. A discussion of the risks and benefits of operative intervention versus continued conservative measures was made with the patient. She opted to proceed with surgery. Operative risks include infection, neurovascular injury, development of blood clots, fracture, possible component loosening/failure and possible need for subsequent procedures was discussed. Informed consent was obtained. Operative Findings: As below Description of Procedure: The patient was brought to the operating room, and after induction of general anesthesia was placed in the beachchair position. The bony prominences were appropriately padded. The right upper extremity was prepped and draped in normal fashion. A deltopectoral incision was then made lateral to the coracoid process extending approximately 12 cm. The skin was incised sharply. Subcutaneous tissues were divided bluntly. Electrocautery was used for hemostasis. The deltopectoral interval was identified and the cephalic vein gently retracted laterally with the deltoid. Subdeltoid adhesions were bluntly dissected. A self-retaining retractor was placed. The clavipectoral fascia was opened and the conjoined tendon gently retracted medially. The upper one third of the pectoralis major was released to help facilitate exposure. The biceps was identified and the sheath was opened. The rotator interval was opened. The biceps was tenotomized and allowed to retract distally. A subscapularis peel was performed and the subscap was tagged with #2 Ethibond suture. The humeral head was then exposed releasing the capsule off the humeral neck. The shoulder was gently dislocated. The cutting guide was placed planning on a cut flush with the rotator cuff insertion and 30 of retroversion. The cutting block was pinned in place. The humeral head cut was then made. This measured most appropriately at 42 mm. Residual inferior osteophytes were carefully removed flush with the [place] cortical bone. The proximal humerus was then prepared with the appropriate reamer then Blazer. This was kept in place to protect the proximal humerus. A posterior glenoid retractor was placed. The glenoid was then exposed releasing the labrum from the 12-6 o'clock position. Residual labral tissue was removed. The glenoid sized most appropriate at a size small. A guidewire was then inserted planning on the appropriate version. The glenoid was reamed down to a bleeding bony surface. The central pedicle was drilled. The alignment guide was placed in the peripheral peg holes drilled. The trial small glenoid was placed and was fully seated. The component was fully contained in the bony vault. Pulsatile lavage was utilized. The bony surface was dried. Cement was placed around the peripheral ring. The component was then inserted. This was gently impacted. This was held in place until the cement had sufficiently hardened. Attention was then paid again towards preparing the proximal humerus. The trial Blazer was removed and the size medium stemless implant was inserted in the appropriate orientation. This is fully seated. There was good stability. A 42 x 14.5 mm humeral head was placed in the central position. The shoulder was gently reduced. It was taken through a range of motion. It was felt to be stable in flexion and extension with internal and external rotation. I felt there was adequate latter day of soft tissue tension. The shoulder was gently dislocated. A trial head was then removed and the final one inserted. A #2 Ethibond was placed laterally for reattachment of the subscapularis. Pulsatile lavage was utilized. The subscapularis was reattached utilizing #2 Ethibond suture. The rotator interval was closed with #2 Ethibond suture. She had minimal drainage at this point therefore a deep drain was not placed. The deltopectoral interval was closed with interrupted 2-0 Vicryl sutures. The subcu tissues were reapproximated with interrupted 2-0 Vicryl sutures. The skin was reprepped with 3-0 subcuticular Prolene suture. Steri-Strips were applied. A sterile dressing was applied in addition to a sling. The patient was then awoken from general anesthesia and transferred to recovery room in good condition. Blood loss was estimated at 200 mL. No complications were incurred. Sponge and needle counts were correct at the end the case. Jovan DRAKE assisted during the major components of the case to include positioning, exposure, resection, implantation, and closure.
[2024-04-14 15:10] LABS: Glucose,Whole Blood 161 mg/dL (70-110)
--- NOTE | 2024-04-14 15:10 | XR ---
EXAMINATION TYPE: XR shoulder limited RT DATE OF EXAM: 04/14/2024 3:06 PM INDICATION: Patient age:Female; 68 years old; Reason for study: s/p right total shoulder arthroplasty COMPARISON: MR right shoulder 01/11/2021 TECHNIQUE: The right shoulder was examined in single frontal projection portably. FINDINGS: Postsurgical changes from right shoulder arthroplasty. Proximal humeral head component identified. Gar[place] rdware appears intact with appropriate alignment. There is associated soft tissue gas. No acute fract ure or dislocation. IMPRESSION: Postsurgical changes right shoulder arthroplasty. Hardware appears intact with appropriate alignment. [facility], , 04/14/2024 3:08 PM
[2024-04-14 16:36] LABS: Glucose,Whole Blood 148 mg/dL (70-110)
[2024-04-14 17:22] LABS: Basophils % (A) 0 %; Eosinophils # (A) 0.1 k/uL (0-0.7); Eosinophils % (A) 0 %; HCT 37.3 % (34.0-46.0); HGB 11.9 gm/dL (11.4-16.0); Hypochromasia Slight; Lymphocytes % (A) 6 %; MCH 31.2 pg (25.0-35.0); MCHC 31.9 g/dL (31.0-37.0); MCV 97.8 fL (80.0-100.0); Mean Platelet Volume 6.3; Monocytes # (A) 0.6 k/uL (0-1.0); Monocytes % (A) 4 %; Neutrophils % (A) 90 %; Platelet Count 383 k/uL (150-450); RBC 3.82 m/uL (3.80-5.40); RDW 12.3 % (11.5-15.5); WBC 17.8 k/uL (3.8-10.6)
[2024-04-14] MEDS: traMADol 50 MG TAB PO SCH (20:55)
[2024-04-14] MEDS: PRAMIPEXOLE 0.25 MG TAB PO SCH (20:55)
[2024-04-14] MEDS: ASPIRIN 81 MG PO SCH (20:55)
[2024-04-14] MEDS: lisinopriL 10 MG TAB PO SCH (20:55)
[2024-04-14 21:03] LABS: Glucose,Whole Blood 258 mg/dL (70-110)
[2024-04-14] MEDS: HYDROcodone/APAP 5-325MG 1 EACH TAB PO PRN (21:12)
[2024-04-14] MEDS: LATANOPROST 0.005% OPHTH DROPS 2.5 ML BTL BOTH EYES SCH (21:13)
[2024-04-14] MEDS: ARTIFICIAL TEARS-HYPROMELLOSE DROPS 15 ML BTL BOTH EYES SCH (21:13)
[2024-04-14] MEDS: PILOCARPINE 5 MG TAB PO SCH (22:08)
--- NOTE | 2024-04-15 03:42 | HP ---
HISTORY AND PHYSICAL CHIEF COMPLAINT: Arthritis of the right shoulder. HISTORY OF PRESENT ILLNESS: This is another admission for this 68-year-old female, who has come in for an elective total right shoulder replacement. She has been doing fairly well and had been healthy without any problems with cardiac issues, shortness of breath, etc. Past medical history, family history, personal and social histories reveal that she is not allergic to any medication. She does have a history of hyperlipidemia, hypertension, and type 2 diabetes. MEDICATIONS: Include, 1. Benazepril 20 mg once a day. 2. Pramipexole 1.5 mg 2 at bedtime. 3. Jardiance 25 mg once a day. 4. Atorvastatin 80 mg once a day. 5. Metformin 1 g twice a day. 6. 81 mg of aspirin. 7. Omeprazole 40 mg once a day. 8. Vitamin D. The remainder of her history is unremarkable. PHYSICAL EXAMINATION: VITAL SIGNS: Normal. HEAD, EARS, EYES, NOSE, MOUTH, AND THROAT: Normal. CHEST: Clear. CARDIAC: Demonstrates normal sinus rhythm. ABDOMEN: Soft and nontender. EXTREMITIES: Normal. NEUROLOGICAL: She is intact. DIAGNOSES: She is admitted to the hospital with diagnoses of, 1. Arthritis of the right shoulder. 2. History of hypertension. 3. Type 2 diabetes. PLAN: No change in program at this time. She is cleared for surgery. We are happy to follow for any medical issues including her diabetes. Thank you respectfully. ROB / DONNY: [id number] /
[2024-04-15] MEDS: PANTOPRAZOLE 40 MG TABLET PO SCH (06:02)
[2024-04-15 06:22] LABS: Glucose,Whole Blood 155 mg/dL (70-110)
[2024-04-15 11:25] LABS: Glucose,Whole Blood 382 mg/dL (70-110)
[2024-04-15] MEDS ORDERED: HYDROcodone/APAP 7.5-325MG 1 EACH TAB PO PRN (11:33)
--- NOTE | 2024-04-15 11:55 | P.PN ---
Subjective Progress Note Date: 04/15/24 Principal diagnosis: Right severe glenohumeral joint osteoarthrosis Patient was seen at bedside this morning sitting up in chair with bulky dressing present to right shoulder and sling present to right upper extremity. Patient says she has been having increasing pain since this morning. Patient does feel that the block from surgery yesterday has totally wears off. Patient says she does live at home alone and she is hoping to stay 1 more night for additional therapy and pain control. Patient says she has been urinating since surgery without issue. Patient states no bowel movement yet, however, patient says she has been passing gas. Patient denies any other issues at this time. Objective - Vital Signs Vital signs: Vital Signs Temp 97.9 F 04/15/24 08:12 Pulse 90 04/15/24 08:12 Resp 16 04/15/24 08:12 BP 96/62 04/15/24 08:12 Pulse Ox 100 04/15/24 08:12 FiO2 Intake & Output 04/14/24 04/15/24 04/15/24 18:59 06:59 18:59 Intake Total 1551 Output Total 200 Balance 1351 Weight 98.4 kg Intake: IV 1551 Output: Estimated Blood Loss 200 Other: Voiding Method Toilet # Voids 1 1 - Exam Right shoulder: Incision is clean, dry, and intact. The bulky dressing is in good condition. There is minimal soft tissue swelling and ecchymosis surrounding the medial and lateral aspects of the incision. Calf is soft, no tenderness with palpation. Plantar flexion, dorsiflexion, EHL, FHL are intact. Sensory exam to light touch throughout the extremity is intact, dorsal pedis pulses 2+. - Labs CBC & Chem 7: 04/14/24 17:03 Labs: Abnormal Lab Results - Last 24 Hours (Table) 04/14/24 04/14/24 04/14/24 Range/Units 11:38 15:08 16:33 WBC (3.8-10.6) k/uL Neutrophils # (1.3-7.7) k/uL POC Glucose (mg/dL) 135 H 161 H 148 H (70-110) mg/dL 04/14/24 04/14/24 04/15/24 Range/Units 17:03 21:01 06:20 WBC 17.8 H (3.8-10.6) k/uL Neutrophils # 16.0 H (1.3-7.7) k/uL POC Glucose (mg/dL) 258 H 155 H (70-110) mg/dL 04/15/24 Range/Units 11:23 WBC (3.8-10.6) k/uL Neutrophils # (1.3-7.7) k/uL POC Glucose (mg/dL) 382 H (70-110) mg/dL Assessment and Plan Assessment: 1. Severe right glenohumeral joint osteoarthrosis -Postop day 1 status post right total shoulder arthroplasty Plan: 1. Right severe glenohumeral joint osteoarthrosis -right total shoulder arthroplasty performed yesterday, 04/14/2024. Patient stable bedside's morning with bulky dressing and sling in place to right upper extremity. We will increase [place] dose. Patient perform gentle range of motion x-rays of right elbow and right wrist. Nonweightbearing to the right upper extremity. plan for discharge home tomorrow with home care 2. Appreciate medical management 3. Pain management -[place]; vistaril 4. DVT prophylaxis -aspirin 5. GI prophylaxis -senna 6. PT/OT -sling to right upper extremity. Nonweightbearing right upper extremity. Okay to perform gentle range of motion exercises of right elbow and right wrist. 7. Encourage incentive spirometer use 8. Discharge planning -plan for discharge home tomorrow Time with Patient: Less than 30
[2024-04-15] MEDS: HYDROcodone/APAP 7.5-325MG 1 EACH TAB PO PRN (12:23)
[2024-04-15] MEDS: hydrOXYzine pamoate 25 MG CAP PO SCH (12:55)
[2024-04-15] MEDS: INSULIN ASPART (NovoLOG) 100 UNIT/ML VIAL SQ SCH (13:40)
[2024-04-15] MEDS: INSULIN DETEMIR (LEVEMIR) 100 UNIT/ML SYR SQ ONE (13:40)
[2024-04-15 14:12] VITALS: BMI 39.6
[2024-04-15 16:42] LABS: Glucose,Whole Blood 221 mg/dL (70-110)
[2024-04-15] MEDS: HYDROmorphone 0.5 MG/0.5 ML SYRINGE IVP PRN (17:29)
[2024-04-15] MEDS ORDERED: INSULIN ASPART (NovoLOG) 100 UNIT/ML VIAL SQ SCH (17:30)
[2024-04-15 21:00] LABS: Glucose,Whole Blood 290 mg/dL (70-110)
[2024-04-16 06:12] LABS: Glucose,Whole Blood 149 mg/dL (70-110)
[2024-04-16] MEDS: INSULIN DETEMIR (LEVEMIR) 100 UNIT/ML SYR SQ SCH (06:31)
--- NOTE | 2024-04-16 06:51 | PN ---
PROGRESS NOTE DATE OF SERVICE: 04/15/2024 CHIEF COMPLAINT: Status post right shoulder replacement. HISTORY OF PRESENT ILLNESS: This lady is doing fairly well other than the pain. Her sugars have jumped up, which is somewhat surprising and she will be placed on an insulin scale and a small dose of long-acting insulin. PHYSICAL EXAMINATION: CHEST: Clear. CARDIAC: Normal. ABDOMEN: Soft, nontender. IMPRESSION: 1. Status post right shoulder replacement. 2. Elevated blood sugars. PLAN: Manage blood sugars and she will probably go home either today or tomorrow. MMODL / IJN: [id number] /
[2024-04-16] MEDS: SENNOSIDES-DOCUSATE SODIUM 1 EACH TAB PO PRN (08:49)
[2024-04-16 11:46] LABS: Glucose,Whole Blood 237 mg/dL (70-110)
--- NOTE | 2024-04-16 12:25 | P.PN ---
Subjective Progress Note Date: 04/16/24 Principal diagnosis: Right severe glenohumeral joint osteoarthrosis Patient was seen at bedside this morning sitting up in chair with bulky dressing present to right shoulder and sling present to right upper extremity. Patient says her pain is under better control today. She discussed with PT/OT at bedside this morning and hoping to go to [facility] upon discharge. Patient says she has been urinating since surgery without issue. Patient states no bowel movement yet, however, patient says she has been passing gas. Patient denies any other issues at this time. Objective - Vital Signs Vital signs: Vital Signs Temp 99.9 F H 04/16/24 07:46 Pulse 107 H 04/16/24 07:46 Resp 18 04/16/24 07:46 BP 119/74 04/16/24 07:46 Pulse Ox 100 04/16/24 07:46 FiO2 Intake & Output 04/15/24 04/16/24 04/16/24 18:59 06:59 18:59 Weight 98.4 kg Other: Voiding Method Toilet # Voids 1 1 - Exam Right shoulder: Incision is clean, dry, and intact. The bulky dressing is in good condition. There is minimal soft tissue swelling and ecchymosis surrounding the medial and lateral aspects of the incision. Calf is soft, no tenderness with palpation. Plantar flexion, dorsiflexion, EHL, FHL are intact. Sensory exam to light touch throughout the extremity is intact, dorsal pedis pulses 2+. - Labs CBC & Chem 7: 04/14/24 17:03 Labs: Abnormal Lab Results - Last 24 Hours (Table) 04/15/24 04/15/24 04/16/24 Range/Units 16:41 20:59 06:11 POC Glucose (mg/dL) 221 H 290 H 149 H (70-110) mg/dL 04/16/24 Range/Units 11:45 POC Glucose (mg/dL) 237 H (70-110) mg/dL Assessment and Plan Assessment: 1. Severe right glenohumeral joint osteoarthrosis -Postop day 2 status post right total shoulder arthroplasty Plan: 1. Right severe glenohumeral joint osteoarthrosis -right total shoulder arthroplasty performed 04/14/2024. Patient stable bedside this morning with bulky dressing and sling in place to right upper extremity. Patient to perform gentle range of motion exercises of right elbow and right wrist. Nonweightbearing to the right upper extremity. PT/OT recommending [facility] upon discharge. I did discuss this with patieint and patient agreeable with plan. Case management working on [facility] placement. plan for discharge to [facility] pending. 2. Appreciate medical management 3. Pain management -[place]; vistaril 4. DVT prophylaxis -aspirin 5. GI prophylaxis -senna 6. PT/OT -sling to right upper extremity. Nonweightbearing right upper extremity. Okay to perform gentle range of motion exercises of right elbow and right wrist. 7. Encourage incentive spirometer use 8. Discharge planning -plan for discharge to [facility] Time with Patient: Less than 30
[2024-04-16 16:52] LABS: Glucose,Whole Blood 181 mg/dL (70-110)
[2024-04-16 21:26] LABS: Glucose,Whole Blood 178 mg/dL (70-110)
--- NOTE | 2024-04-16 23:04 | PN ---
PROGRESS NOTE DATE OF SERVICE: 04/16/2024 CHIEF COMPLAINT: Status post right shoulder replacement. HISTORY OF PRESENT ILLNESS: This lady is doing fairly well and she may be going home today. PHYSICAL EXAMINATION: CHEST: Clear. CARDIAC: Normal. VITAL SIGNS: Normal. IMPRESSION: 1. Status post right shoulder replacement. 2. Diabetes. PLAN: Probably home today and we will follow her up in the office soon. MMODL / IJN: [id number] /
[2024-04-17 06:22] LABS: Glucose,Whole Blood 156 mg/dL (70-110)
[2024-04-17 08:39] LABS: Blood Urea Nitrogen 30.9 mg/dL (9.0-27.0); Calcium 8.2 mg/dL (8.7-10.3); Chloride 107 mmol/L (96-109); Glucose 169 mg/dL (70-110); Potassium 4.5 mmol/L (3.5-5.5); Sodium 140 mmol/L (135-145)
--- NOTE | 2024-04-17 11:27 | P.PN ---
Subjective Progress Note Date: 04/17/24 Principal diagnosis: Right severe glenohumeral joint osteoarthrosis Patient was seen at bedside this morning sitting up in chair with bulky dressing present to right shoulder and sling present to right upper extremity. Patient says her pain is under better control today. She discussed with PT/OT at bedside this morning and hoping to go to [facility] upon discharge. Patient says she has been urinating since surgery without issue. Patient states no bowel movement yet, however, patient says she has been passing gas. Patient denies any other issues at this time. Objective - Vital Signs Vital signs: Vital Signs Temp 98.2 F 04/17/24 06:48 Pulse 89 04/17/24 06:48 Resp 16 04/17/24 06:48 BP 111/69 04/17/24 06:48 Pulse Ox 95 04/17/24 06:48 FiO2 Intake & Output 04/16/24 04/17/24 04/17/24 18:59 06:59 18:59 Other: # Voids 3 1 # Bowel Movements 0 - Exam Right shoulder: Incision is clean, dry, and intact. The bulky dressing is in good condition. There is minimal soft tissue swelling and ecchymosis surrounding the medial and lateral aspects of the incision. Calf is soft, no tenderness with palpation. Plantar flexion, dorsiflexion, EHL, FHL are intact. Sensory exam to light touch throughout the extremity is intact, dorsal pedis pulses 2+. - Labs CBC & Chem 7: 04/14/24 17:03 04/17/24 04:46 Labs: Abnormal Lab Results - Last 24 Hours (Table) 04/16/24 04/16/24 04/16/24 Range/Units 11:45 16:50 21:25 BUN (9.0-27.0) mg/dL BUN/Creatinine Ratio (12.00-20.00) Ratio Glucose (70-110) mg/dL POC Glucose (mg/dL) 237 H 181 H 178 H (70-110) mg/dL Calcium (8.7-10.3) mg/dL 04/17/24 04/17/24 Range/Units 04:46 06:20 BUN 30.9 H (9.0-27.0) mg/dL BUN/Creatinine Ratio 30.90 H (12.00-20.00) Ratio Glucose 169 H (70-110) mg/dL POC Glucose (mg/dL) 156 H (70-110) mg/dL Calcium 8.2 L (8.7-10.3) mg/dL Assessment and Plan Assessment: 1. Severe right glenohumeral joint osteoarthrosis -Postop day 3 status post right total shoulder arthroplasty Plan: 1. Right severe glenohumeral joint osteoarthrosis -right total shoulder arthroplasty performed 04/14/2024. Patient stable bedside this morning with bulky dressing and sling in place to right upper extremity. Patient to perform gentle range of motion exercises of right elbow and right wrist. Nonweightbearing to the right upper extremity. PT/OT recommending [facility] upon discharge. I did discuss this with patieint and patient agreeable with plan. Ca se management working on [facility] placement. plan for discharge to [facility] on Saturday 2. Appreciate medical management 3. Pain management -[place]; vistaril 4. DVT prophylaxis -aspirin 5. GI prophylaxis -senna 6. PT/OT -sling to right upper extremity. Nonweightbearing right upper extremity. Okay to perform gentle range of motion exercises of right elbow and right wrist. 7. Encourage incentive spirometer use 8. Discharge planning -plan for discharge to [facility] on Saturday Time with Patient: Less than 30
[2024-04-17 12:09] LABS: Glucose,Whole Blood 180 mg/dL (70-110)
[2024-04-17 16:39] LABS: Glucose,Whole Blood 213 mg/dL (70-110)
[2024-04-17 21:21] LABS: Glucose,Whole Blood 242 mg/dL (70-110)
[2024-04-18 06:26] LABS: Glucose,Whole Blood 175 mg/dL (70-110)
--- NOTE | 2024-04-18 07:59 | P.PN ---
Subjective Progress Note Date: 04/18/24 Principal diagnosis: Right severe glenohumeral joint osteoarthrosis Patient was seen and examined this morning. Patient resting comfortably in bed with bulky dressing present to right shoulder and sling present to right upper extremity. Patient says her pain controlled on current regimen. Patient reports that she has been up and about, tolerating activity well. Patient denies any other issues at this time. Awaiting discharge to [facility] 04/20/24. Objective - Vital Signs Vital signs: Vital Signs Temp 97.8 F 04/18/24 01:17 Pulse 98 04/18/24 01:17 Resp 16 04/18/24 01:17 BP 126/68 04/18/24 01:17 Pulse Ox 94 L 04/18/24 01:17 FiO2 Intake & Output 04/17/24 04/18/24 04/18/24 18:59 06:59 18:59 Other: # Voids 2 1 # Bowel Movements 0 - Exam Right shoulder: Incision is clean, dry, and intact. The bulky dressing is in good condition. There is minimal soft tissue swelling and ecchymosis surrounding the medial and lateral aspects of the incision. Calf is soft, no tenderness with palpation. Plantar flexion, dorsiflexion, EHL, FHL are intact. Sensory exam to light touch throughout the extremity is intact, dorsal pedis pulses 2+. - Labs CBC & Chem 7: 04/14/24 17:03 04/17/24 04:46 Labs: Abnormal Lab Results - Last 24 Hours (Table) 04/17/24 04/17/24 04/17/24 Range/Units 04:46 12:08 16:38 BUN 30.9 H (9.0-27.0) mg/dL BUN/Creatinine Ratio 30.90 H (12.00-20.00) Ratio Glucose 169 H (70-110) mg/dL POC Glucose (mg/dL) 180 H 213 H (70-110) mg/dL Calcium 8.2 L (8.7-10.3) mg/dL 04/17/24 04/18/24 Range/Units 21:19 06:25 BUN (9.0-27.0) mg/dL BUN/Creatinine Ratio (12.00-20.00) Ratio Glucose (70-110) mg/dL POC Glucose (mg/dL) 242 H 175 H (70-110) mg/dL Calcium (8.7-10.3) mg/dL Assessment and Plan Assessment: Postop day 4: status post right total shoulder arthroplasty Plan: 1. Right severe glenohumeral joint osteoarthrosis -right total shoulder arthroplasty performed 04/14/2024. Patient stable bedside this morning with bulky dressing and sling in place to right upper extremity. Patient to perform gentle range of motion exercises of right elbow and right wrist. Nonweightbearing to the right upper extremity. PT/OT recommending [facility] upon discharge. I did discuss this with patieint and patient agreeable with plan. Case management working on [facility] placement. Plan for discharge to [facility] on Saturday 2. Appreciate medical management 3. Pain management -[place]; vistaril 4. DVT prophylaxis -aspirin 5. GI prophylaxis -senna 6. PT/OT -sling to right upper extremity. Nonweightbearing right upper extremity. Okay to perform gentle range of motion exercises of right elbow and right wrist. 7. Encourage incentive spirometer use 8. Discharge planning -plan for discharge to [facility] on Saturday Time with Patient: Less than 30
[2024-04-18 11:39] LABS: Glucose,Whole Blood 232 mg/dL (70-110)
[2024-04-18 16:44] LABS: Glucose,Whole Blood 245 mg/dL (70-110)
--- NOTE | 2024-04-18 19:36 | P.PN ---
Subjective Progress Note Date: 04/17/24 Patient was seen at bedside this morning sitting up in chair with bulky dressing present to right shoulder and sling present to right upper extremity. Patient says she has been having increasing pain since this morning. Patient does feel that the block from surgery yesterday has totally wears off. Patient says she does live at home alone and she is hoping to stay 1 more night for additional therapy and pain control. Patient says she has been urinating since surgery without issue. Patient states no bowel movement yet, however, patient says she has been passing gas. Patient denies any other issues at this time. Objective - Vital Signs Vital signs: Vital Signs Temp 98.2 F 04/17/24 06:48 Pulse 89 04/17/24 06:48 Resp 16 04/17/24 06:48 BP 111/69 04/17/24 06:48 Pulse Ox 95 04/17/24 06:48 FiO2 Intake & Output 04/16/24 04/17/24 04/17/24 18:59 06:59 18:59 Other: # Voids 3 1 # Bowel Movements 0 - Exam - Constitutional General appearance: Present: average body habitus, cooperative, no acute distress - EENT Eyes: Present: anicteric sclerae, EOMI, PERRLA, normal appearance ENT: Present: hearing grossly normal, normal oropharynx Ears: bilateral: normal - Neck Neck: Present: normal ROM. Absent: lymphadenopathy, rigidity, thyromegaly Carotids: negative: bruit present Thyroid: bilateral: normal size, negative: enlarged, nodule - Respiratory Respiratory: bilateral: CTA, negative: rales, rhonchi, wheezing - Cardiovascular Rhythm: regular Heart sounds: normal: S1, S2 Abnormal Heart Sounds: Absent: systolic murmur, diastolic murmur - Gastrointestinal General gastrointestinal: Present: normal bowel sounds, soft. Absent: distended, organomegaly, tenderness - Genitourinary Genitourinary Comment(s): deferred - Integumentary Integumentary: Present: normal turgor. Absent: jaundiced, rash, ulcer - Neurologic Neurologic: Present: CNII-XII intact. Absent: focal deficits - Musculoskeletal Musculoskeletal: Present: gait normal, strength equal bilaterally - Psychiatric Psychiatric: Present: A&O x's 3, appropriate affect, intact judgment & insight - Labs CBC & Chem 7: 04/14/24 17:03 04/17/24 04:46 Labs: Abnormal Lab Results - Last 24 Hours (Table) 04/16/24 04/16/24 04/17/24 Range/Units 16:50 21:25 04:46 BUN 30.9 H (9.0-27.0) mg/dL BUN/Creatinine Ratio 30.90 H (12.00-20.00) Ratio Glucose 169 H (70-110) mg/dL POC Glucose (mg/dL) 181 H 178 H (70-110) mg/dL Calcium 8.2 L (8.7-10.3) mg/dL 04/17/24 04/17/24 Range/Units 06:20 12:08 BUN (9.0-27.0) mg/dL BUN/Creatinine Ratio (12.00-20.00) Ratio Glucose (70-110) mg/dL POC Glucose (mg/dL) 156 H 180 H (70-110) mg/dL Calcium (8.7-10.3) mg/dL Assessment and Plan Assessment: 1. Right severe glenohumeral joint osteoarthrosis -right total shoulder arthroplasty performed 04/14/2024. Patient stable bedside this morning with bulky dressing and sling in place to right upper extremity. Patient to perform gentle range of motion exercises of right elbow and right wrist. Nonweightbearing to the right upper extremity. PT/OT recommending [facility] upon discharge. I did discuss this with patieint and patient agreeable with plan. Case management working on [facility] placement. Plan for discharge to [facility] on Saturday 2. Appreciate medical management 3. Pain management -[place]; vistaril 4. DVT prophylaxis -aspirin 5. GI prophylaxis -senna 6. PT/OT -sling to right upper extremity. Nonweightbearing right upper extremity. Okay to perform gentle range of motion exercises of right elbow and right wrist. 7. Encourage incentive spirometer use 8. Discharge planning -plan for discharge to [facility] on Saturday
--- NOTE | 2024-04-18 19:37 | P.PN ---
Subjective Progress Note Date: 04/18/24 Patient was seen at bedside this morning sitting up in chair with bulky dressing present to right shoulder and sling present to right upper extremity. Patient says she has been having increasing pain since this morning. Patient does feel that the block from surgery yesterday has totally wears off. Patient says she does live at home alone and she is hoping to stay 1 more night for additional therapy and pain control. Patient says she has been urinating since surgery without issue. Patient states no bowel movement yet, however, patient says she has been passing gas. Patient denies any other issues at this time. 04/18/2024 Patient is seen and evaluated sitting up in bedside chair; reports fair pain control Vital signs are reviewed and stable with temperature 98.5, pulse 109, respirations 17 and blood pressure 116/58 O2 saturation 94% Patient reports ambulating and exercising with PT this morning; reports fair pain control and ambulation Continue with current plan of care Patient is recommended discharge to skilled rehab; case management on board; to be discharged on Saturday Objective - Vital Signs Vital signs: Vital Signs Temp 97.8 F 04/18/24 06:55 Pulse 88 04/18/24 06:55 Resp 17 04/18/24 06:55 BP 100/65 04/18/24 06:55 Pulse Ox 96 04/18/24 06:55 FiO2 Intake & Output 04/17/24 04/18/24 04/18/24 18:59 06:59 18:59 Other: # Voids 2 1 # Bowel Movements 0 - Exam - Constitutional General appearance: Present: average body habitus, cooperative, no acute distress - EENT Eyes: Present: anicteric sclerae, EOMI, PERRLA, normal appearance ENT: Present: hearing grossly normal, normal oropharynx Ears: bilateral: normal - Neck Neck: Present: normal ROM. Absent: lymphadenopathy, rigidity, thyromegaly Carotids: negative: bruit present Thyroid: bilateral: normal size, negative: enlarged, nodule - Respiratory Respiratory: bilateral: CTA, negative: rales, rhonchi, wheezing - Cardiovascular Rhythm: regular Heart sounds: normal: S1, S2 Abnormal Heart Sounds: Absent: systolic murmur, diastolic murmur - Gastrointestinal General gastrointestinal: Present: normal bowel sounds, soft. Absent: distended, organomegaly, tenderness - Genitourinary Genitourinary Comment(s): deferred - Integumentary Integumentary: Present: normal turgor. Absent: jaundiced, rash, ulcer - Neurologic Neurologic: Present: CNII-XII intact. Absent: focal deficits - Musculoskeletal Musculoskeletal: Present: gait normal, strength equal bilaterally - Psychiatric Psychiatric: Present: A&O x's 3, appropriate affect, intact judgment & insight - Labs CBC & Chem 7: 04/14/24 17:03 04/17/24 04:46 Labs: Abnormal Lab Results - Last 24 Hours (Table) 04/17/24 04/17/24 04/17/24 Range/Units 12:08 16:38 21:19 POC Glucose (mg/dL) 180 H 213 H 242 H (70-110) mg/dL 04/18/24 Range/Units 06:25 POC Glucose (mg/dL) 175 H (70-110) mg/dL Assessment and Plan Assessment: 1. Right severe glenohumeral joint osteoarthrosis -right total shoulder arthroplasty performed 04/14/2024. Patient stable bedside this morning with bulky dressing and sling in place to right upper extremity. Patient to perform gentle range of motion exercises of right elbow and right wrist. Nonweightbearing to the right upper extremity. PT/OT recommending [facility] upon discharge. I did discuss this with patieint and patient agreeable with plan. Case management working on [facility] placement. Plan for discharge to [facility] on Saturday 2. Appreciate medical management 3. Pain management -[place]; vistaril 4. DVT prophylaxis -aspirin 5. GI prophylaxis -senna 6. PT/OT -sling to right upper extremity. Nonweightbearing right upper extremity. Okay to perform gentle range of motion exercises of right elbow and right wrist. 7. Encourage incentive spirometer use 8. Discharge planning -plan for discharge to [facility] on Saturday
[2024-04-18 20:23] LABS: Glucose,Whole Blood 298 mg/dL (70-110)
[2024-04-19 06:10] LABS: Glucose,Whole Blood 176 mg/dL (70-110)
--- NOTE | 2024-04-19 07:57 | P.PN ---
Subjective Progress Note Date: 04/19/24 Principal diagnosis: Right severe glenohumeral joint osteoarthrosis Patient seen and examined this morning. Patient resting comfortably in bed. Repositioned patient with the assist of the NA. Patient tolerated well. Bulky dressing to the right shoulder and sling are intact. Surgical dressing may be taken down today and place Optifoam dressings. Patient does report that her pain is managed on current regimen. No acute concerns. Objective - Vital Signs Vital signs: Vital Signs Temp 98.1 F 04/19/24 01:15 Pulse 96 04/19/24 01:15 Resp 17 04/19/24 01:15 BP 106/60 04/19/24 01:15 Pulse Ox 95 04/19/24 01:15 FiO2 Intake & Output 04/18/24 04/19/24 04/19/24 18:59 06:59 18:59 Intake Total 100 Balance 100 Intake: Oral 100 Other: # Voids 3 1 # Bowel Movements 1 - Exam Right shoulder: Incision is clean, dry, and intact. The bulky dressing is in good condition. There is minimal soft tissue swelling and ecchymosis surrounding the medial and lateral aspects of the incision. Calf is soft, no tenderness with palpation. Plantar flexion, dorsiflexion, EHL, FHL are intact. Sensory exam to light touch throughout the extremity is intact, dorsal pedis pulses 2+. - Labs CBC & Chem 7: 04/14/24 17:03 04/17/24 04:46 Labs: Abnormal Lab Results - Last 24 Hours (Table) 04/18/24 04/18/24 04/18/24 Range/Units 11:38 16:43 20:21 POC Glucose (mg/dL) 232 H 245 H 298 H (70-110) mg/dL 04/19/24 Range/Units 06:08 POC Glucose (mg/dL) 176 H (70-110) mg/dL Assessment and Plan Assessment: Postop day 5: status post right total shoulder arthroplasty Plan: 1. Right severe glenohumeral joint osteoarthrosis -right total shoulder arthroplasty performed 04/14/2024. Bulky surgical dressing may be taken down today and Optifoam dressings may be placed. Patient to perform gentle range of motion exercises of right elbow and right wrist. Nonweightbearing to the right upper extremity. PT/OT recommending [facility] upon discharge. I did discuss this with patieint and patient agreeable with plan. Case management working on [facility] placement. Plan for discharge to [facility] on Saturday 2. Appreciate medical management 3. Pain management -[place]; vistaril 4. DVT prophylaxis -aspirin 5. GI prophylaxis -senna 6. PT/OT -sling to right upper extremity. Nonweightbearing right upper extremity. Okay to perform gentle range of motion exercises of right elbow and right wrist. 7. Encourage incentive spirometer use 8. Discharge planning -plan for discharge to [facility] on Saturday Time with Patient: Less than 30
[2024-04-19 11:35] LABS: Glucose,Whole Blood 230 mg/dL (70-110)
[2024-04-19 16:35] LABS: Glucose,Whole Blood 180 mg/dL (70-110)
[2024-04-19 20:37] LABS: Glucose,Whole Blood 235 mg/dL (70-110)
[2024-04-20 06:16] LABS: Glucose,Whole Blood 162 mg/dL (70-110)
--- NOTE | 2024-04-20 06:53 | P.PN ---
Subjective Progress Note Date: 04/20/24 Principal diagnosis: Right severe glenohumeral joint osteoarthrosis Patient seen and examined this morning. Patient resting comfortably in bed. Dressing was changed yesterday, 04/19/24, clean and dry. She continues with sling to the right upper extremity. Patient states that she has been doing gentle range of motion. She is tolerating the activity well. Patient is looki ng forward to discharge to subacute rehab today to further her recovery. Patient does report that her pain is managed on current regimen. No acute concerns. Objective - Vital Signs Vital signs: Vital Signs Temp 97.9 F 04/20/24 01:42 Pulse 93 04/20/24 01:42 Resp 16 04/20/24 01:42 BP 98/58 04/20/24 01:42 Pulse Ox 95 04/20/24 01:42 FiO2 Intake & Output 04/19/24 04/19/24 04/20/24 06:59 18:59 06:59 Intake Total 100 Balance 100 Intake: Oral 100 Other: Voiding Method Toilet # Voids 1 2 # Bowel Movements 1 - Exam Right shoulder: Incision is clean, dry, and intact. The dressing is in good condition. There is minimal soft tissue swelling and ecchymosis surrounding the medial and lateral aspects of the incision. Calf is soft, no tenderness with palpation. Plantar flexion, dorsiflexion, EHL, FHL are intact. Sensory exam to light touch throughout the extremity is intact, dorsal pedis pulses 2+. - Labs CBC & Chem 7: 04/14/24 17:03 04/17/24 04:46 Labs: Abnormal Lab Results - Last 24 Hours (Table) 04/19/24 04/19/24 04/19/24 Range/Units 11:31 16:33 20:36 POC Glucose (mg/dL) 230 H 180 H 235 H (70-110) mg/dL 04/20/24 Range/Units 06:09 POC Glucose (mg/dL) 162 H (70-110) mg/dL Assessment and Plan Assessment: Postop day 6: status post right total shoulder arthroplasty Plan: 1. Right severe glenohumeral joint osteoarthrosis -right total shoulder arthroplasty performed 04/14/2024. Bulky surgical dressing may be taken down today and Optifoam dressings may be placed. Patient to perform gentle range of motion exercises of right elbow and right wrist. Nonweightbearing to the right upper extremity. PT/OT recommending [facility] upon discharge. I did discuss this with patient and patient agreeable with plan. Case management working on [facility] placement. Plan for discharge to [facility] today. 2. Appreciate medical management 3. Pain management -[place]; vistaril 4. DVT prophylaxis -aspirin 5. GI prophylaxis -senna 6. PT/OT -sling to right upper extremity. Nonweightbearing right upper extremity. Okay to perform gentle range of motion exercises of right elbow and right wrist. 7. Encourage incentive spirometer use 8. Discharge planning -plan for discharge to [facility] today. Time with Patient: Less than 30
--- NOTE | 2024-04-20 06:54 | P.DS ---
Providers Date of admission: 04/16/24 12:01 Expected date of discharge: 04/20/24 Attending physician: Brannon Reddy Consults: 04/14/24 14:33 Consult Physician Routine Consulting Provider: Norberto Dumont Consult Reason/Comments: medical management s/p right total shoulder arthroplasty Do you want consulting provider notified?: Yes Primary care physician: Norberto Dumont Hospital Course: Hospital Course: The patient was evaluated preoperatively and found to have the diagnosis of right shoulder osteoarthritis. They underwent appropriate preoperative care and were willing to undergo the intended procedure. They underwent a successful right total shoulder arthroplasty, were recovered appropriately and sent to the floor. While on the floor they worked with physical therapy, occupational therapy and nursing to enhance their recovery experience. Their pain was well controlled through their stay and they were started on appropriate medications, DVT ppx modalities, activity and dietary needs. Daily labs were monitored closely, and transfusions were only used when necessary. Medicine as well as other consulting services have made their input and have helped with our team approach and multidisciplinary care. PT milestones have been met and passed and they have made the recommendation of subacute rehab for this patient and treating providers agree with this care path. The patient will be discharged home with appropriate medications, instructions and follow-up information and in stable condition. Patient Condition at Discharge: Good Plan - Discharge Summary Discharge Rx Participant: Yes New Discharge Prescriptions: No Action Atorvastatin [Lipitor] 80 mg PO HS Ergocalciferol [Vitamin D2 (DRISDOL)] 50,000 unit PO Q30D Pilocarpine HCl [Salagen] 5 mg PO BID Omeprazole [PriLOSEC] 40 mg PO DAILY Loratadine [Claritin] 10 mg PO DAILY traMADol HCL [Ultram] 50 mg PO HS PRN PRN Reason: Pain Latanoprost Ophth [Xalatan 0.005%] 1 drops BOTH EYES HS Nystatin 100,000 Unit/ml Susp [Mycostatin Oral Susp] 1 ml PO BID Benazepril [Lotensin] 10 mg PO HS Ascorbic Acid [Vitamin C] 1,000 mg PO DAILY Aspirin [Adult Low Dose Aspirin EC] 81 mg PO DAILY Multivitamins, Thera [Multivitamin (formulary)] 1 tab PO DAILY Fluticasone Nasal [place] [Flonase Nasal [place]] 2 spray EA NOSTRIL DAILY Pramipexole [Mirapex] 0.25 mg PO HS metFORMIN HCL 1,000 mg PO BID Cyanocobalamin [Vitamin B-12] 500 mcg PO DAILY Rewetting Eye Drops 1 drop BOTH EYES BID Empagliflozin [Jardiance] 25 mg PO DAILY Discharge Medication List Atorvastatin [Lipitor] 80 mg PO HS 06/04/15 [History] Ergocalciferol [Vitamin D2 (DRISDOL)] 50,000 unit PO Q30D 07/11/18 [History] Loratadine [Claritin] 10 mg PO DAILY 03/21/20 [History] Omeprazole [PriLOSEC] 40 mg PO DAILY 03/21/20 [History] Pilocarpine HCl [Salagen] 5 mg PO BID 03/21/20 [History] Multivitamins, Thera [Multivitamin (formulary)] 1 tab PO DAILY 04/25/21 [History] traMADol HCL [Ultram] 50 mg PO HS PRN 04/25/21 [History] Fluticasone Nasal [place] [Flonase Nasal [place]] 2 spray EA NOSTRIL DAILY 10/22/21 [History] Latanoprost Ophth [Xalatan 0.005%] 1 drops BOTH EYES HS 10/22/21 [History] Nystatin 100,000 Unit/ml Susp [Mycostatin Oral Susp] 1 ml PO BID 10/22/21 [History] Pramipexole [Mirapex] 0.25 mg PO HS 10/22/21 [History] Ascorbic Acid [Vitamin C] 1,000 mg PO DAILY 11/15/23 [History] Benazepril [Lotensin] 10 mg PO HS 11/15/23 [History] Cyanocobalamin [Vitamin B-12] 500 mcg PO DAILY 11/15/23 [History] Empagliflozin [Jardiance] 25 mg PO DAILY 11/15/23 [History] Rewetting Eye Drops 1 drop BOTH EYES BID 11/15/23 [History] metFORMIN HCL 1,000 mg PO BID 11/15/23 [History] Aspirin [Adult Low Dose Aspirin EC] 81 mg PO DAILY 04/13/24 [History] Follow up Appointment(s)/Referral(s): Jovan Klein, LENNY [PHYSICIAN CAR SCRUBBER] - 2 Weeks [facility], [NON-STAFF] - As Needed Patient Instructions/Handouts: Shoulder Arthroplasty (GEN) Activity/Diet/Wound Care/Special Instructions: Orthopedic Discharge Instructions: 1. Wound care and infection precautions, keep incision dry and covered while showering, no lotions, creams, moisturizers. No soaking, pools, hot tubs. Do not scrub over incision. 2. Nonweightbearing right upper extremity until follow-up. 3. Ice when necessary. Do not exceed 20 minutes per hour with ice pack. 4. Utilize sling to right upper extremity until seen at first follow up appointment. 5. Pain meds and anticoagulants per prescription. 6. Pain medication has potential to cause constipation. Increase oral fluid and fiber intake. Contact primary care provider if you have not had a bowel movement within 48 hours after discharge. 7. No anti-inflammatory medication until discussed at first post operative visit, this including Motrin, Aleve, Mobic, Diclofenac. 8. Follow up in office at 2 weeks postop with Juaquin Fuentes PA-C / Jovan Klein PA-C 9. Follow up with your primary care doctor 7-10 days after discharge. 10. Contact [facility] with any questions, . Keep incision clean, dry, intact. While showering, cover fusion tape with Saran wrap. Keep fusion tape on until follow-up appointment in office in 2 weeks.
[2024-04-20 10:39] LABS: Glucose,Whole Blood 274 mg/dL (70-110)
[2024-04-20 13:57] VITALS: BP 111/53; PULSE 101; RESP 18; TEMP 98.4
--- NOTE | 2024-04-21 08:05 | PN ---
PROGRESS NOTE CHIEF COMPLAINT: Status post right shoulder replacement. HISTORY OF PRESENT ILLNESS: This lady is doing well and she is probably going to [facility] today for rehab. PHYSICAL EXAMINATION: VITAL SIGNS: Normal. CHEST: Clear. CARDIAC: Normal. IMPRESSION: Status post right shoulder replacement. PLAN: Discharge to [facility] for rehab today. MMODL / IJN: [id number] /
== END 2024-04-20 16:05 | DRG 483 ==
LOC: OR 10:41 → 4SSUR 14:42 → OR 04-16 12:01 → 4SSUR 04-16 12:01
PROVIDERS: ADMIT Orthopaedic Surgery; ATTEND Orthopaedic Surgery
PROC: 0RRJ0JZ Replacement of Right Shoulder Joint with Synthetic Substitute, Open Approach (ICD-10-PCS; principal; 2024-04-14 12:25)
DX: M19.011 Primary osteoarthritis, right shoulder (principal); E11.22 Type 2 diabetes mellitus with diabetic chronic kidney disease; I12.9 Hypertensive chronic kidney disease with stage 1 through stage 4 chronic kidney disease, or unspecified chronic kidney disease; E11.65 Type 2 diabetes mellitus with hyperglycemia; N18.2 Chronic kidney disease, stage 2 (mild); E78.5 Hyperlipidemia, unspecified; G47.30 Sleep apnea, unspecified; H40.009 Preglaucoma, unspecified, unspecified eye; Z79.82 Long term (current) use of aspirin; Z79.84 Long term (current) use of oral hypoglycemic drugs; Z79.899 Other long term (current) drug therapy; Z96.641 Presence of right artificial hip joint; Z96.651 Presence of right artificial knee joint
CPT/HCPCS: 64415; 80048; 85025

== ENCOUNTER → 2024-06-25 | Outpatient (CLI) | payer MEDICARE, OTHER ==
[2024-06-25 14:29] VITALS: BP 133/84; PULSE 98; RESP 18; TEMP 98.5
--- NOTE | 2024-06-25 16:06 | P.PROGSL ---
Subjective DATE: 06/25/2024 FOLLOW UP VISIT. Patient with obstructive sleep apnea hypopnea syndrome return to sleep center for follow-up visit. Information from previous visit have been reviewed. Patient is using PAP equipment every night for the whole night, getting PAP supplies in time. The patient does not have significant problems with the mask, PAP unit and humidification. [place] sleepiness scale is increased to 12. I checked information from PAP unit. PAP unit pressure 4-11, average 8.3 cm H2O. Usage is 100% for more then 4 hours, average 8.2 hours per night. Leak is 22 l/m, which is in acceptable range. Apnea Hypopnea Index is 0.7, which is normal. MEDICATIONS: Metformin, atorvastatin, pramipexole, omeprazole, pilocarpine. During physical exam: GENERAL: A pleasant patient without any distress. VITAL SIGNS: Please see below, weight is 221.4 lbs. HEENT: PERRLA, EOMI.low position of soft palate, Mallapati 3. NECK: Supple. No JVD. LUNGS: Clear to percussion and to auscultation. Good air exchange. No wheezing or rhonchi. HEART: S1, S2 regular. ABDOMEN: Soft and nontender. Obese EXTREMITIES: No clubbing or cyanosis. REGISTRAR NURSES' REGISTRY: Awake, alert, and oriented x3. No focal deficit. Impressions: 1. Obstructive sleep apnea-hypopnea syndrome. Patient demonstrated great compliance with treatment, benefiting from treatment. 2. Obesity, BMI 41.7, patient lost 4 pounds comparing with previous visit. 3. Diabetes mellitus. 4. History of depression. 5. Status post tonsillectomy. 6. Status post tubal ligation. Plan: 1. Continue using PAP equipment every night for the whole night. 2. Sleep hygiene with regular time in bed for at least 7.5-8 hours 3. PAP unit should stay lower then position of the head. 4. Advised patient to remove all remaining water from humidifier canister daily and make it dry after each usage. Refill canister with fresh distilled water before each usage. 5. Watching and losing weight. 6. Precautions related to driving. No driving if feel any sleepiness. 7. I will maintain prescription for PAP supplies including mask, tube, filters. 8. Follow up visit in 8 months or earlier if patient has any problems. Thank you very much for allowing me to participate in the management of your patient. Vince Gonzales MD, PhD, FAASM. Diplomat of [place] [employer], Sleep Medicine Board by [place] Ems Coordinator of [facility] [place] Objective - Vital Signs Vital Signs: Vital Signs Temp 98.5 F 06/25/24 14:26 Pulse 98 06/25/24 14:26 Resp 18 06/25/24 14:26 BP 133/84 06/25/24 14:26 Pulse Ox 98 06/25/24 14:26 FiO2 Intake & Output 06/24/24 06/25/24 06/25/24 18:59 06:59 18:59 Weight 100.357 kg Home Medications: Home Medications Medication Instructions Recorded Confirmed Type Atorvastatin [Lipitor] 80 mg PO HS 06/04/15 04/28/24 History Omeprazole [PriLOSEC] 40 mg PO DAILY@0600 03/21/20 04/28/24 History Pilocarpine HCl [Salagen] 5 mg PO BID@0800,1700 03/21/20 04/28/24 History Multivitamins, Thera [Multivitamin 1 tab PO DAILY@1700 04/25/21 04/28/24 History (formulary)] Fluticasone Nasal [place] [Flonase 2 spray EA NOSTRIL DAILY 10/22/21 04/28/24 History Nasal [place]] Latanoprost Ophth [Xalatan 0.005%] 1 drop BOTH EYES HS 10/22/21 04/28/24 History Ascorbic Acid [Vitamin C] 1,000 mg PO DAILY 11/15/23 04/28/24 History Cyanocobalamin [Vitamin B-12] 500 mcg PO DAILY 11/15/23 04/28/24 History Empagliflozin [Jardiance] 25 mg PO DAILY 11/15/23 04/28/24 History Rewetting Eye Drops 1 drop BOTH EYES BID@0800,1700 11/15/23 04/28/24 History metFORMIN HCL 1,000 mg PO BID@0800,1700 11/15/23 04/28/24 History Aspirin [Adult Low Dose Aspirin EC] 81 mg PO DAILY 04/13/24 04/28/24 History Insulin Detemir (Levemir) [Levemir] 10 unit SQ DAILY@0700 #30 each 04/20/24 04/28/24 Rx Acetaminophen Tab [Tylenol] 650 mg PO Q4H PRN 04/28/24 04/28/24 History Benazepril [Lotensin] 10 mg PO HS 04/28/24 04/28/24 History Ergocalciferol [Vitamin D2 (1250 1,250 mcg PO QMONTHLY 04/28/24 04/28/24 History Mcg = 51115 Iu)] HYDROcodone/APAP 7.5-325MG [[place] 1 tab PO Q6H PRN 04/28/24 04/28/24 History 7.5-325] INSULIN ASPART (NovoLOG) [NovoLOG See Protocol SQ ACHS 04/28/24 04/28/24 History (formulary)] Loperamide HCl [Imodium A-D] 2 - 4 mg PO TID PRN MDD 4 tablets 04/28/24 04/28/24 History Magnesium Hydroxide [Milk of 7,200 mg PO DAILY PRN 04/28/24 04/28/24 History Magnesia Concentrate] Na Phos,M-B/Na Phos,Di-Ba [Fleet 133 ml RECTAL DAILY PRN 04/28/24 04/28/24 History Adult] Ondansetron [Zofran] 4 mg PO Q8HR PRN 04/28/24 04/28/24 History Pramipexole [Mirapex] 0.25 mg PO HS 04/28/24 04/28/24 History Sennosides [Senokot] 8.6 mg PO BID@0800,1700 04/28/24 04/28/24 History bisacodyL [Dulcolax] 10 mg RECTAL DAILY PRN 04/28/24 04/28/24 History polyethylene glycoL 3350 [Miralax] 17 gm PO DAILY PRN 04/28/24 04/28/24 History
== END ==
LOC: 3 N SLEEP 13:51
PROVIDERS: ATTEND Internal Medicine
DX: G47.33 Obstructive sleep apnea (adult) (pediatric) (principal); E66.9 Obesity, unspecified; Z68.41 Body mass index [BMI] 40.0-44.9, adult; E11.9 Type 2 diabetes mellitus without complications; Z86.59 Personal history of other mental and behavioral disorders; Z90.89 Acquired absence of other organs; Z98.51 Tubal ligation status
CPT/HCPCS: 99212

== ENCOUNTER 2024-07-20 12:08 | Emergency (ER) | payer MEDICARE, OTHER ==
[2024-07-20 12:27] VITALS: RESP 18
--- NOTE | 2024-07-20 13:50 | XR ---
EXAMINATION TYPE: XR shoulder complete 3 views RT DATE OF EXAM: 07/20/2024 1:32 PM COMPARISON: 04/14/2024 CLINICAL INDICATION: Female, 68 years old with history of pain; PHH, pain FINDINGS: Images show underlying right total shoulder arthroplasty. Interval development of osseous debris/hete rotopic ossification along the axillary recess measuring 1.6 cm and 3.1 x 0.8 cm. No fracture is seen. Mild degenerative change AC joint with marginal spurring. IMPRESSION: Interval development of osseous debris versus heterotopic ossification along the axillary recess rachel uring 1.6 cm and 3.1 x 0.8 cm. Otherwise, no evident complication of the patient's right total should er arthroplasty. [facility], , 07/20/2024 1:48 PM
--- NOTE | 2024-07-20 14:01 | ED ---
Upper Extremity HPI - General Chief Complaint: Extremity Injury, Upper Stated Complaint: Fall-R arm injury Time Seen by Provider: 07/20/24 12:18 Source: patient, RN notes reviewed Mode of arrival: ambulatory Limitations: no limitations - History of Present Illness Initial Comments: Patient 68-year-old female presents emergency department complaint of right arm injury. Patient states she fell about a day with her walker going to a pothole. She states she had bruising she states she has discomfort but does have good range of motion. Patient states that she had a total shoulder replacement with states that she has no increase in pain states she has bruising along her bicep region. She had no head injury loss conscious. Patient offers no other c omplaints. - Related Data Home Medications Medication Instructions Recorded Confirmed Atorvastatin [Lipitor] 80 mg PO HS 06/04/15 04/28/24 Omeprazole [PriLOSEC] 40 mg PO DAILY@0600 03/21/20 04/28/24 Pilocarpine HCl [Salagen] 5 mg PO BID@0800,1700 03/21/20 04/28/24 Multivitamins, Thera [Multivitamin 1 tab PO DAILY@1700 04/25/21 04/28/24 (formulary)] Fluticasone Nasal [place] [Flonase 2 spray EA NOSTRIL DAILY 10/22/21 04/28/24 Nasal [place]] Latanoprost Ophth [Xalatan 0.005%] 1 drop BOTH EYES HS 10/22/21 04/28/24 Ascorbic Acid [Vitamin C] 1,000 mg PO DAILY 11/15/23 04/28/24 Cyanocobalamin [Vitamin B-12] 500 mcg PO DAILY 11/15/23 04/28/24 Empagliflozin [Jardiance] 25 mg PO DAILY 11/15/23 04/28/24 Rewetting Eye Drops 1 drop BOTH EYES BID@0800,1700 11/15/23 04/28/24 metFORMIN HCL 1,000 mg PO BID@0800,1700 11/15/23 04/28/24 Aspirin [Adult Low Dose Aspirin EC] 81 mg PO DAILY 04/13/24 04/28/24 Acetaminophen Tab [Tylenol] 650 mg PO Q4H PRN 04/28/24 04/28/24 Benazepril [Lotensin] 10 mg PO HS 04/28/24 04/28/24 Ergocalciferol [Vitamin D2 (1250 1,250 mcg PO QMONTHLY 04/28/24 04/28/24 Mcg = 17088 Iu)] HYDROcodone/APAP 7.5-325MG [[place] 1 tab PO Q6H PRN 04/28/24 04/28/24 7.5-325] INSULIN ASPART (NovoLOG) [NovoLOG See Protocol SQ ACHS 04/28/24 04/28/24 (formulary)] Loperamide HCl [Imodium A-D] 2 - 4 mg PO TID PRN MDD 4 tablets 04/28/24 04/28/24 Magnesium Hydroxide [Milk of 7,200 mg PO DAILY PRN 04/28/24 04/28/24 Magnesia Concentrate] Na Phos,M-B/Na Phos,Di-Ba [Fleet 133 ml RECTAL DAILY PRN 04/28/24 04/28/24 Adult] Ondansetron [Zofran] 4 mg PO Q8HR PRN 04/28/24 04/28/24 Pramipexole [Mirapex] 0.25 mg PO HS 04/28/24 04/28/24 Sennosides [Senokot] 8.6 mg PO BID@0800,1700 04/28/24 04/28/24 bisacodyL [Dulcolax] 10 mg RECTAL DAILY PRN 04/28/24 04/28/24 polyethylene glycoL 3350 [Miralax] 17 gm PO DAILY PRN 04/28/24 04/28/24 Previous Rx's Medication Instructions Recorded Insulin Detemir (Levemir) [Levemir] 10 unit SQ DAILY@0700 #30 each 04/20/24 Allergies Allergy/AdvReac Type Severity Reaction Status Date / Time No Known Allergies Allergy Verified 07/20/24 12:27 Review of Systems ROS Statement: Those systems with pertinent positive or pertinent negative responses have been documented in the HPI. ROS Other: All systems not noted in ROS Statement are negative. Past Medical History Past Medical History: Diabetes Mellitus, Eye Disorder, Hearing Disorder / Deafness, Hyperlipidemia, Hypertension, Osteoarthritis (OA), Renal Disease, Sleep Apnea/CPAP/BIPAP Additional Past Medical History / Comment(s): Hx. anemia, dry skin, stage 2 kidney disease, uses CPAP, PRE GLAUCOMA, wears hearing aids History of Any Multi-Drug Resistant Organisms: None Reported Past Surgical History: Joint Replacement, Orthopedic Surgery, Tonsillectomy, Tubal Ligation Additional Past Surgical History / Comment(s): bunionectomy left foot and a plate, dodie cataract surg. COLONOSCOPY, EGD, total right knee, R hip replacement, left knee replacement, TRS, R shoulder replacement 04/14/24 Past Anesthesia/Blood Transfusion Reactions: No Reported Reaction Past Psychological History: No Psychological Hx Reported Smoking Status: Never smoker Past Alcohol Use History: None Reported Past Drug Use History: None Reported - Past Family History Mother Family Medical History: Cancer Additional Family Medical History / Comment(s): breast cancer Brother(s) Family Medical History: Cancer Additional Family Medical History / Comment(s): kidney cancer Son(s) Family Medical History: Cancer Additional Family Medical History / Comment(s): lymphoma General Exam Limitations: no limitations General appearance: alert, in no apparent distress Head exam: Present: atraumatic, normocephalic, normal inspection Neck exam: Present: normal inspection. Absent: tenderness, meningismus, lymphadenopathy Respiratory exam: Present: normal lung sounds bilaterally. Absent: respiratory distress, wheezes, rales, rhonchi, stridor Cardiovascular Exam: Present: regular rate, normal rhythm, normal heart sounds. Absent: systolic murmur, diastolic murmur, rubs, gallop, clicks Extremities exam: Present: other (The patient there is a large hematoma, neurovascular intact patient does have good range of motion of the right shoulder without shoulder tenderness she has more bicep tenderness.) Neurological exam: Present: alert Course Vital Signs 07/20/24 12:22 Temperature 97.8 F Pulse Rate 117 H Respiratory 18 Rate Blood Pressure 163/81 O2 Sat by Pulse 99 Oximetry Medical Decision Making - Medical Decision Making Was pt. sent in by a medical professional or institution (, PA, BEE KEEPER, urgent care, hospital, or usp...) When possible be specific @ -No Did you speak to anyone other than the patient for history (EMS, parent, family, police, friend...)? What history was obtained from this source @ -No Did you review nursing and triage notes (agree or disagree)? Why? @ -I reviewed and agree with nursing and triage notes Were old charts reviewed (outside hosp., previous admission, EMS record, old EKG, old radiological studies, urgent care reports/EKG's, usp records)? Report findings @ -No old charts were reviewed Differential Diagnosis (chest pain, altered mental status, abdominal pain women, abdominal pain men, vaginal bleeding, weakness, fever, dyspnea, syncope, headache, dizziness, GI bleed, back pain, seizure, CVA, palpatations, mental health, musculoskeletal)? @ -Fall, shoulder dislocation, arm fracture, shoulder strain contusion EKG interpreted by me (3pts min.). @ -None X-rays interpreted by me (1pt min.). @ -X-ray right shoulder showing interval osseous hypertrophy CT interpreted by me (1pt min.). @ -None done U/S interpreted by me (1pt. min.). @ -None done What testing was considered but not performed or refused? (CT, X-rays, U/S, labs)? Why? @ -None What meds were considered but not given or refused? Why? @ -None Did you discuss the management of the patient with other professionals (professionals i.e. , PA, BEE KEEPER, lab, RT, psych nurse, social security specialist, signal supervisor, teacher, juvenile corrections officer, case supervisor)? Give summary @ -No Was smoking cessation discussed for >3mins.? @ -No Was critical care preformed (if so, how long)? @ -No Were there social determinants of health that impacted care today? How? (Homelessness, low income, unemployed, alcoholism, drug addiction, transportation, low edu. Level, literacy, decrease access to med. care, [facility], rehab)? @ -No Was there de-escalation of care discussed even if they declined (Discuss DNR or withdrawal of care, Hospice)? DNR status @ -No What co-morbidities impacted this encounter? (DM, HTN, Smoking, COPD, CAD, Cancer, CVA, ARF, Chemo, Hep., AIDS, mental health diagnosis, sleep apnea, morbid obesity)? @ -None Was patient admitted / discharged? Hospital course, mention meds given and route, prescriptions, significant lab abnormalities, going to OR and other pertinent info. @ -Discharge patient has a large right bicep hematoma patient does have normal range of motion for recent shoulder surgery, there is some interval osseous numbing that patient may follow-up with orthopedics return parameters discussed. Undiagnosed new problem with uncertain prognosis? @ -No Drug Therapy requiring intensive monitoring for toxicity (Heparin, Nitro, Insulin, Cardizem)? @ -No Were any procedures done? @ -No Diagnosis/symptom? @ -Right arm hematoma Acute, or Chronic, or Acute on Chronic? @ -Acute Uncomplicated (without systemic symptoms) or Complicated (systemic symptoms)? @ -Uncomplicated Side effects of treatment? @ -No Exacerbation, Progression, or Severe Exacerbation? @ -No Poses a threat to life or bodily function? How? (Chest pain, [place], [place], pneumonia, PE, COPD, DKA, ARF, appy, cholecystitis, CVA, Diverticulitis, Homicidal, Suicidal, threat to staff... and all critical care pts) @ -No Disposition Clinical Impression: Hematoma of arm, Shoulder pain Disposition: HOME SELF-CARE Condition: Stable Instructions (If sedation given, give patient instructions): Hematoma (ED) Additional Instructions: Please return to the Emergency Department if symptoms worsen or any other concerns. Is patient prescribed a controlled substance at d/c from ED?: No Referrals: Norberto Dumont MD [Primary Care Provider] - 1-2 days Brannon Reddy MD [STAFF PHYSICIAN] - 1-2 days Time of Disposition: 14:01
[2024-07-20] MEDS: KETOROLAC 15 MG/ML 1 ML VIAL IM STA (14:28)
[2024-07-20 14:33] VITALS: BP 142/86; PULSE 101; TEMP 98
== END 2024-07-20 14:33 | disposition home or self-care (01) ==
LOC: EC 12:08
DX: S40.021A Contusion of right upper arm, initial encounter (principal); W19.XXXA Unspecified fall, initial encounter
CPT/HCPCS: 73030; 99283; 96372; J1885

== ENCOUNTER → 2024-09-02 | Outpatient (CLI) | payer MEDICARE, OTHER ==
--- NOTE | 2024-09-02 14:39 | US ---
EXAMINATION TYPE: US extremity nonvasc mass RT DATE OF EXAM: 09/02/2024 COMPARISON: NONE CLINICAL INDICATION: Female, 69 years old with history of R22.31 NODULE OF SKIN RIGHT UPPER EXT; Odalis ent has a palpable area on the right upper extremity, on the inner portion of the arm. Patient states she had a fall in the beginning of July. TECHNIQUE: Grayscale and color Doppler images of the patient's area of concern were acquired. FINDINGS: The palpable area measures 3.0 x 1.3 x 2.1 cm and appears isoechoic compared to surroundin g tissue. Slightly complex with possible fluid collections within. Findings not typical for hematoma. No discrete lymphadenopathy identified. IMPRESSION: Ill-defined area at the palpable region within the forearm is nonspecific. Clinical mark gement and follow-up can be performed. [facility], , 09/02/2024 2:37 PM
== END | disposition home or self-care (01) ==
LOC: RADUSWWP 13:56
PROVIDERS: ATTEND Family Medicine
DX: R22.31 Localized swelling, mass and lump, right upper limb (principal)